=== PATIENT | female | born 1975 ===

== ENCOUNTER 2025-06-01 15:32 | Outpatient (REF) | payer MEDICAID, SELFPAY ==
--- OUTSIDE RECORDS SUMMARY | 2025-05-31 11:00 | XMS_ITS ---
Author Organization [facility] Address [address] [place] [address] Care Team Providers Care Prize Fighter Name Role Phone [facility] Primary C are Provider Unavailable LU KRISHNAN Unavailable [phone] REASON FOR VISIT Difficulty breathing Social History Sex Assigned At : Social History Observation Description Sex Assigned At Female Encounters Encounter Location Date Provider Diagnosis [facility] [address] [address] 05/31/2025 LU KRISHNAN Plan Of Treatment No Information Progress Notes * Suzie SCHMITZDOB:1975 (49 yo F)Acc No.[id number]:05/31/2025 Progress Notes Patient: Suzie Moreland Provider: Renny KRISHNAN APRN :1975 A ge:49 Y S ex:Female Date:05/31/2025 Address:[address] [place], [place] [id number] Pcp:[facility] Subjective: * Chief Complaints: * D ifficulty breathing Care Plan Details* * Electronic signature of KHRIS KRISHNAN APRN on 06/01/2025 at 06:39 PM EDT Sign off status: Pending * Provider: Renny KRISHNAN APRN Date: Generated for Alaina macedo/Loretta/Alfreditoitting on: 06:39 PM EDT
--- OUTSIDE RECORDS SUMMARY | 2025-05-31 17:40 | XMS_ITS | Encounter Summary ---
Author Organization [employer] Address [address] [facility] 7[address] [place] [address] Care Team Providers Care Diesel Fleet Mechanic Name Role Phone Margareth Avalos DO Primary Care Provider + [phone] Elmer Barros PA-C Unavailable [phone] Reason for Visit * Reason Comments Respiratory Distress Cough Nasal Congestion Encounter Details Date Type Department Care Team ([facility] st Contact Info) Description 05/31/2025 5:40 PM EDT Office Visit [facility] [place] [address] [place] [address] Cough in adult; Nasal congestion; Difficulty breathing Social History Tobacco Use Types Packs/Day Years Used Date Smoking Tobacco: Every Day Cigarettes Passive Smoke Exposure: Current Smokeless Tobacco: Never Tobacco Cessation:Ready to Q uit: Not Asked; Counseling Given: Not Answered Alcohol Use Standard Drinks/Week Comments Not Currently 0 (1 standard drink = 0.6 oz pur e alcohol) Housing Stability Answer Date Recorded What is your housing situation today? I have saray lópez 07/02/[address] you li ve. Do you have problems with any of the following? None of the above 07/02/2024 Food Insecurity Answer Date Recorded Within the past 12 months, y ou worried that your food would run out before you got money to buy more: Never True 07/02/2024 Within the past 12 months,th e food you bought just didn't last and you didn't have enough money to get more: Never True 02/2024 Transportation Answer Date Recorded In the past 12 months, has l ack of transportation kept you from medical appts, meetings, work or from getting things needed for daily living? No 07/02/2024 Intimate Partner Violence Answer Date R ecorded Within the last year, have y ou been afraid of your partner or ex-partner? 2 07/02/2024 Within the last year, have y ou been humiliated or emotionally abused in other ways by your partner or ex-partner? 2 Within the last year, have y ou been kicked, hit, slapped, or otherwise physically hurt by your partner or ex-partner? 2 07/02/2024 Within the last year, have y ou been raped or forced to have any kind of sexual activity by your partner or ex-partner? 2 07/02/2024 Utilities Answer Date Recorded In the past 12 months, has t he [employer], gas, oil or water company threatened to shut off services in your home? 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 file Not on file Not on file documented as of this encounter Last Filed Vital Signs Vital Sign Reading Time Taken Comments Blood Pressure 114/63 05/31/2025 5:41 PM EDT Pulse 68 05/31/2025 5:41 PM EDT Temperature 36.5 C (97.7 F) 05/31/2025 5:41 PM EDT Respiratory Rate 28 05/31/2025 5:41 PM EDT Oxygen Saturation 100% 05/31/2025 5:41 PM EDT Inhaled Oxygen Concentration - - Weight 63.2 kg (139 lb 4 oz) 05/31/2025 5:41 PM EDT Height 159 cm (5' 2.6 ) 05/31/2025 5:41 PM EDT Body Mass Index 24.98 05/31/2025 5:41 PM EDT documented in this encounter Plan of Treatment Not on file documented as of this encounter Procedures Procedure Name Priority Date/Time Associated Diagnosis Comments XR CHEST 2 VIEWS Routine 06/01/2025 3:58 PM EDT Difficulty breathing POCT INFLUENZA B (ID NOW RAPID MOLECULAR) Routine 05/31/2025 6:09 PM EDT Cough in adult Nasal congestion Difficulty breathing POCT INFLUENZA A (ID NOW RAPID MOLECULAR) Routine 05/31/2025 6:08 PM EDT Cough in adult Nasal congestion Difficulty breathing POCT COVID-19 AG CHAND ID NOW Routine 05/31/2025 6:08 PM EDT Cough in adult Nasal congestion Difficulty breathing documented in this encounter Results * XR Chest 2 Views (06/01/2025 3:58 PM EDT) Anatomical Region Laterality Modality Chest Radiographic Jolie ging 06/01/2025 3:58 PM EDT Narrative 06/01/2025 4:09 [place] [address] XRay Report Signed Patient: Suzie Brooks MR#: [id number] : 1975 Acct:[id number] Age/Sex: 49 / F ADM Date: 06/01/25 Loc: HO.HHCX Attending Dr: Ade Rose Ordering Physician: Ade Rose Date of Service: 06/01/25 Procedure(s): XR chest 2V Accession Number(s): [id number] cc: Ade Rose Reason for Exam: dyspnea EXAMINATION: XR CHEST CLINICAL INFORMATION: dyspnea COMPARISON: None available. TECHNIQUE: 2 views of the chest were obtained. FINDINGS: Right-sided IJ port terminates at the superior cavoatrial junction. No significant abnormality is noted involving the heart, lungs, mediastinum, bony thorax or soft tissues. XR/XR chest 2V IMPRESSION: No acute disease Electronically signed by: Vince Burciaga MD 06/01/2025 04:06 PM EDT RP Dictated By: Vince Burciaga MD Signed By: <Electronically signed by Vince Burciaga MD in OV> 06/01/25 1606 DD/ 1558 TD/TT: 06/01/25 1604 Shuttler Car: Procedure Note Donotuseinterpreter, Image - 06/01/[address] [address] XRay Report Signed Patient: Ricco Brooks#: [id number] : 1975Acct:[id number] Age/Sex: 49 / FADM Date: 06/01/25 Loc: HO.HHCX Attending Dr: Ade Rose Ordering Physician: Ade Rose Date of Service: 06/01/25 Procedure(s): XR chest 2V Accession Number(s): [id number] cc: Ade Rose Reason for Exam: dyspnea EXAMINATION: XR CHEST CLINICAL INFORMATION: dyspnea COMPARISON: None available. TECHNIQUE: 2 views of the chest were obtained. FINDINGS: Right-sided IJ port terminates at the superior cavoatrial junction. No significant abnormality is noted involving the heart, lungs, mediastinum, bony thorax or soft tissues. XR/XR chest 2V IMPRESSION: No acute disease Electronically signed by: Vince Burciaga MD 06/01/2025 04:06 PM EDT RP Dictated By: Vince Burciaga MD Signed By: <Electronically signed by Vince Burciaga MD in OV> 06/01/25 1606 DD/ 1558 TD/TT: 06/01/25 1604 Shuttler Car: Ade Rose BRINE SUPERVISOR IMG XR PROCEDURES Final Result * POCT Rapid Influenza B CHAND ID NOW (05/31/2025 6:09 PM EDT) Influenza B Negative Negative, Indeterminate [facility] QC Media Lot # [id number] [facility] Lot# Expiration Date [facility] Swab 05/31/2025 6:09 PM EDT [facility] BRINE SUPERVISOR POINT OF CARE TEST ENTER/EDIT O RDERABLES Final Result Performing Organization Address [facility]/ZIP Co de Phone Number [facility] [address] [place] [address] [phone] * POCT Rapid Covid-19 CHAND ID NOW (05/31/2025 6:08 PM EDT) Coronavirus Antigen PCR Negative Negative, Indeterminate, None Detected, Invalid, Specimen unsatisfactory for evaluation, Weakly Positive, 2+ QC Media Lot # [id number] Lot# Expiration Date Swab 05/31/2025 6:08 PM EDT [facility] BRINE SUPERVISOR POINT OF CARE TEST ENTER/EDIT O RDERABLES Final Result * POCT Rapid Influenza A CHAND ID NOW (05/31/2025 6:08 PM EDT) Influenza A Negative Negative, Indeterminate [facility] QC Media Lot # [id number] [facility] Lot# Expiration Date [facility] Swab 05/31/2025 6:08 PM EDT [facility] BRINE SUPERVISOR POINT OF CARE TEST ENTER/EDIT O RDERABLES Final Result Performing Organization Address [facility]/ZIP Co de Phone Number [facility] [address] [place] [address] [phone] documented in this encounter Visit Diagnoses Diagnosis Cough in adult Nasal congestion Other diseases of nasal cavity and sinuses Difficulty breathing Other dyspnea and respiratory abnormality documented in this encounter Care Teams Diesel Fleet Mechanic Relationship Specialty Start Date End Date Margareth Avalos DO [address] [place] [phone] PCP - General Family Medicine 12/03/24 Elmer Barros PA-C [address] [place] [address] Family Medicine 12/03/24 documented as of this encounter
--- NOTE | ~2025-06-01 | XR_ITS ---
EXAMINATION: XR CHEST CLINICAL INFORMATION: dyspnea COMPARISON: None available. TECHNIQUE: 2 views of the chest were obtained. FINDINGS: Right-sided IJ port terminates at the superior cavoatrial junction. No significant abnormality is noted involving the heart, lungs, mediastinum, bony thorax or soft tissues. XR/XR chest 2V IMPRESSION: No acute disease Electronically signed by: Vince Burciaga MD 06/01/2025 04:06 PM EDT
--- OUTSIDE RECORDS SUMMARY | 2025-06-01 18:37 | XMS_ITS | Encounter Summary ---
Author Organization [facility] Address [address] [facility] [address] [place] [address] Phone Care Team Providers Care Vessel Liner Name Role Phone Unknown, Unknown Primary Care Provider Agustin Coates MD Primary Care Provider Trent Banks MD Unavailable [phone] Sandra Riley MD Unavailable [phone] Jacqueline Mccallum RN Unavailable [email or web address] Jacqueline Aden SOFTWARE IMPLEMENTATION PROJECT MANAGER Unavailable [phone] Bianca Cedeño METALLURGICAL OR MATERIALS TECHNICIAN Unavailable [phone] Rosa Maria Swanson PA-C Unavailable [phone] Marta Fink Unavailable [email or web address] Pcp, Unknown Primary Care Provider UnavailRee Eugene RN Unavailable [phone] Stephanie Major RN Unavailable [email or web address] Niyah Kim RN Unavailable [email or web address] Johan Vilchis MD Unavailable [phone] Encounter Details Date Type Department Care Team (Late st Contact Info) Description 06/14/2021 Procedure Pass [facility] Interventional X-ray Imaging, [address] [place] [address] Social History Tobacco Use Types Packs/Day Years Used Date Smoking Tobacco: Every Day Comments Unknown Sex and Gender Information Value Date Recorded Sex Assigned at Female 06/12/2021 3:58 PM EDT Legal Sex Female 9:58 AM EDT Gender Identity Female 06/12/2021 3:58 PM EDT Sexual Orientation Straight 06/12/2021 3: 58 PM EDT documented as of this encounter Plan of Treatment Upcoming Encounters Date Type Department Care Team (Late st Contact Info) Description 05/26/2025 Procedure Pass [facility] Radiology Department [address] [place] [address] 06/23/2025 2:30 PM EDT Ancillary Procedure [facility] Radiology Department [address] [place] [address] Sandra Riley MD [address] [place] [phone] [email or web address] 06/23/2025 3:30 PM EDT Blood Draw Laboratory Services, [address], [address]nd [place] [address] Sandra Riley MD [address] [place] [phone] [email or web address] 06/23/2025 4:00 PM EDT Office Visit [facility], [address] [place] [address] Sandra Riley MD [address] [place] [phone] [email or web address] 08/11/2025 1:20 PM EST Telemedicine [facility] [address] [facility] [place] [address] Lynda Villafana MD [address] [place] [address], [place] [address] [email or web address] 09/15/2025 9:20 AM EST Office Visit [facility] [address] [place] [address] Delores Rhoades MD [address] [place] [phone] [email or web address] documented as of this encounter Visit Diagnoses Not on filedocumented in this encounter Additional Health Concerns Infection Onset Date Last Indicated Resolved Time CoV-Risk Comment:Patient reported flu like symptoms and a stuffy nose 08/23/2021 08/23/2021 09/02/2021 1: 25 AM EST CoV-Presumed Comment:Resolved in office visit / telemedicine visit due to resolution of symptoms 02/28/2022 02/28/2022 03/20/2022 1:20 P M EDT CoV-Risk Comment:Per note documentation 10/21/2023 10/21/2023 7:45 AM EST CDiff-Risk 01/21/2024 01/21/2024 01/21/2024 10:0 4 AM EDT CDiff-Risk 01/28/2024 01/28/2024 01/29/2024 10:5 6 AM EDT CoV-Risk Comment:Per note documentation 02/01/2024 02/01/2024 6:07 AM EDT CDiff-Risk 02/07/2024 02/07/2024 02/14/2024 1:22 AM EDT documented as of this encounter Care Teams Vessel Liner Relationship Specialty Start Date End Date Unknown, Unknown, MD PCP - General 05/24/21 06/25/21 Agustin Sanchez MD PCP - General Internal Medicine 06/26/21 09/01/24 Pcp, Unknown PCP - General 09/02/24 Trent Banks MD [email or web address] Radiation Oncology 10/02/21 Sandra Riley MD [address] [place] [address] [email or web address] Primary Oncologist Neurology 10/02/21 Jacqueline Mccallum, ROSELINE [address] [place] [phone] [email or web address] Primary Infusion Nurse 10/19/21 Jacqueline Drummond, [address] [address] [email or web address] Senior Technical Support Engineer Oncology 11/27/21 Bianca Cedeño, METALLURGICAL OR MATERIALS TECHNICIAN [address] [place] [phone] [email or web address] Internal Medicine 10/08/23 Rosa Maria Swanson PA-C [address] [place] [phone] [email or web address] Physician Self Pay Representative 11/04/23 Marta Fink [address] [place] [phone] Audrey @[email or web address] Field Artillery Operations Man 12/12/23 Ree Rasmussen RN [address] [place] [phone] [email or web address] Primary Infusion Nurse 11/02/24 Stephanie Zuniga, ROSELINE [address] [place] [phone] [email or web address] Associate Infusion Nurse 11/02/24 Niyah Kim, ROSELINE [address] [place] [phone] [email or web address] Associate Infusion Nurse 11/02/24 Johan Vilchis MD [address] [address] Ophthalmology 04/02/25 documented as of this encounter Additional Source Comments The information contained in this document represents components of the legal health record. It is not the complete legal health record.[facility]
--- OUTSIDE RECORDS SUMMARY | 2025-06-01 18:37 | XMS_ITS ---
Author Organization [facility] Address [address] [place] [id number] Phone Care Team Providers Care Hot [place] Worker Name Role Phone Trent Banks MD Unavailable [phone] Sandra Riley MD Unavailable [phone] Jacqueline Mccallmu RN Unavailable [email or web address] Jacqueline Drummond METAL FABRICATING INSPECTOR Unavailable [phone] Bianca Cedeño COLD FOOD PACKER Unavailable [phone] Rosa Maria Swanson PA-C Unavailable [phone] Marta Fink Unavailable [email or web address] Pcp, Unknown Primary Care Provider UnavailRee Eugene RN Unavailable [phone] Stephanie Major RN Unavailable [email or web address] Niyah Kim RN Unavailable [email or web address] Johan Vilchis MD Unavailable [phone] Active Problems Patient Care Coordination No te Formatting of this note migh t be different from the original. [facility] [phone] [facility] Problem Noted Date Diagnosed Date History of Lelo-en-Y gastric bypass 01/06/2025 Labial irritation 02/02/2024 Assessment & Plan (02/03/2024 2:19 PM EDT): Pt with several days of labial irritation causing distress. On exam right sided external labial lesion/ulceration, appears to be healing, the rest of labia mildly inflammed. No erythema or discharge. Unclear cause. Using topical wipes unlikely to cause irritation. Has been using dibucaine for discomfort. Possible flare in setting of count recovery. Improved 02/03, pt stopped using cleansing wipes in that area. - monitor Sinus tachycardia 01/31/2024 Assessment & Plan (02/03/2024 2:18 PM EDT): RESOLVED Baseline HR ~70s-90s. Persistent tachycardia (HR 110s-130s) since 01/20, confirmed sinus rhythm on EKG. Improving around time of count recovery. Most recent Qtc 449. Otherwise remained HDS. Asymptomatic. Pre-transplant TTE with EF 65%, normal RV and LV function. Suspect multifactorial due to infection, pain with #pancolitis, dehydration. -- Monitor routine vitals, low threshold for repeat EKG/tele -- IVF PRN (1L LR on 01/31) Hyperchloremic metabolic acidosis 01/30/2024 Assessment & Plan (02/03/2024 2:15 PM EDT): RESOLVED Elevated chloride and low bicarb without anion gap. No other significant electrolyte abnormalities (though is requiring ~daily repletion for K and Phos). Feels well. Having frequent diarrhea with #pancolitis. Urine anion gap 10.2. Suspect related to GI losses, possible component of RTA. -- Anti-diarrheals as in #pancolitis -- IVF PRN (1L LR on 01/31) -- Monitor daily BMP Mucositis 01/30/2024 Assessment & Plan (02/03/2024 2:19 PM EDT): Mouth and throat pain starting 01/29 with ulcerations to bilateral sides of tongue starting 01/30. Tolerating POs. Likely grade 2 mucositis from conditioning chemotherapy. Improving with count recovery -- Mouth care per TP -- MBL PRN Mild protein-calorie malnutrition 01/25/2024 Assessment & Plan (02/03/2024 2:09 PM EDT): Hx Lelo en Y gastric bypass. Poor PO intake due to dysgeusia from chemotherapy. Also with dry mouth, biotene d/c'd with count recovery. Ketones present in UA and INR elevated. -- Encourage PO intake -- Appreciate RD recs -- S/p Vitamin K 5mg daily x3 days (01/27-01/29), increased to 10mg daily x3 days (01/30-02/01) -->INR 1.3 02/01 Chemotherapy induced nausea and vomiting Assessment & Plan (02/03/2024 2:08 PM EDT): Struggled with nausea despite TP anti-emetics. Added Ativan/Compazine PRN with good effect. Likely from conditioning chemotherapy. Most recent QTc 414 on 01/22. Improved with count recovery. -- Standing Zofran changed to PRN 02/01 -- Ativan and Compazine PRN -- Monitor Qtc with medication adjustments Pancytopenia 01/13/2024 Assessment & Plan (02/03/2024 2:07 PM EDT): Leukocytosis, anemia, and thrombocytopenia on admission related to disease and treatment (stem cell mobilization). Pancytopenic with neutropenia due to conditioning chemotherapy. ANC <500 from 01/20 - 02/01. -- Transfuse for Hct<21, Plt<10k -- Transfuse 1 unit PRBC 01/30 -- d/c'd Zarxio 480 mcg daily on day 11 due to count recovery -- Claritin daily for bone pain. D/c' d 02/02 Stem cells transplant status 01/13/2024 Bone marrow transplant candidate 01/13/2024 Autologous donor of stem cells 01/01/2024 Nasal congestion 10/22/2023 Assessment & Plan (10/24/2023 11:11 AM EST): Endorsed nasal congestion on admission. No recent fevers, cough, sick contacts. ERVP negative on admission including COVID. Symptoms improved with zyrtec. 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 Received induction with R-MPV followed by consolidation with Etoposide/Cytarabine and achieved CR. Disease recurred in the right basal ganglia/valencia radiata 05/2021, treated on Protocol 21-109 with Paxalisib then low-dose RT to right basal ganglia, and later Rituximab + Lenalidomide 10/2021. MRI brain 07/29/2024 showed disease progression. S/p 4 cycles of HD-MTX with post Tx MRI 10/2023 showing near resolution of Lymphoma. Admitted for Thiotepa-based autologous stem cell transplant on TP 898. Toxo negative. Received Kepivance as an outpatient with additional doses on Days 0, +1 and +2. Conditioning regimen consisted of: Thiotepa 250mg/m2 daily on Days -9 to -7, Busulfan 0.67mg/kg q6h on Days -6 to - 3, and Cytoxan 60mg/kg daily with [place] 15mg/kg IVB four times daily on Days -3 to -2. Keppra 500mg twice daily from Day -6 to Day -1 for seizure prophylaxis while on Busulfan. On Day 0 = 01/23/2024, a total cell dose of 3.24 x 10*6 CD34+cells/kg over two bags were infused without issue. Counts recovered 02/01. Transplant Onc: Dr. Lore Gaona; Neuro Onc: Dr. Riley -- Pre-transplant vitamin D level was 15. Replete with Ergocalciferol 50,000 units weekly for 8 weeks. On discharge add Cholecalciferol 2,000 units daily. Plan to check level after 8 weeks (~03/14) -- requesting f/u within 5 days given low platelets Assessment & Plan (10/24/2023 11:09 AM EST): Originally diagnosed in 2019 with progressive visual impairment. 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 Received induction with R-MPV followed by consolidation with etoposide/cytarabine and achieved CR. Disease recurred in the right basal ganglia/valencia radiata 05/2021, treated on Protocol 21 with paxalisib then low-dose RT to right basal ganglia, and later Rituximab + Lenalidomide 10/2021 and remained off therapy since 04/2022 until repeat MRI brain 07/29/24 confirmed disease progression. S/p 3 doses of HD-MTX. Now admitted for C2D15 (dose #4) of HD-MTX. Patient received Methotrexate 3500mg/m2 on day 1 after alkalinization of the urine to pH > 7.5. Leucovorin rescue started 24 hours after MTX and will continue q6hrs until MTX cleared. Vigorous hydration with IV bicarb, maintaining UOP >150-200cc/hr. Primary Oncologist: Dr. Riley -- MTX level to be checked at 24 hours, if greater > 10 discuss with pharmacy; MTX level to be checked daily in AM, discharge if <0.1 -- MTX level 10/23 = 1.02, =.16 -- Lasix PRN with goal I/O even -- Check urine pH with each void, goal >7.5 -- If diabetic monitor blood sugars given bicarb IVF in D5 and consider asking pharmacy to change fluids to sterile water with bicarb to limit additional dextrose intake -- No IV contrast, Bactrim, NSAIDS, MV, folic acid, aspirin, PPI, warfarin, aminoglycosides, Peptobismol, clotrimazole troches given potential interaction with MTX. -- Per Optho, decrease prednisolone to qod OU for 2-3 weeks, then q week for 2-3 weeks, then stop. Assessment & Plan (10/10/2023 4:29 PM EST): ACTIVE Originally diagnosed in 2019 with progressive visual impairment. 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 Received induction with R-MPV followed by consolidation with etoposide/cytarabine and achieved CR. Disease recurred in the right basal ganglia/valencia radiata 05/2021, treated on Protocol with paxalisib then low-dose RT to right basal ganglia, and later Rituximab + Lenalidomide 10/2021 and remained off therapy since 04/2022 until repeat MRI brain 07/29/24 confirmed disease progression. S/p 2 doses of HD-MTX. Now admitted for C2D1 (dose #3) of HD-MTX. Patient to receive Methotrexate 3500mg/m2 on day 1 after alkalinization of the urine to pH > 7.5. Leucovorin rescue to start 24 hours after MTX then continue q6hrs until MTX cleared. Vigorous hydration with IV bicarb, maintaining UOP >150-200cc/hr. Primary Oncologist: Dr. Riley -- MTX level to be checked at 24 hours, if greater > 10 discuss with pharmacy; MTX level to be checked daily in AM, discharge if <0.1 -- Lasix PRN with goal I/O even -- Check urine pH with each void, goal >7.5 -- If diabetic monitor blood sugars given bicarb IVF in D5 and consider asking pharmacy to change fluids to sterile water with bicarb to limit additional dextrose intake -- No IV contrast, Bactrim, NSAIDS, MV, folic acid, aspirin, PPI, warfarin, aminoglycosides, Peptobismol, clotrimazole troches given potential interaction with MTX Chronic health problem 10/08/2023 Assessment & Plan (10/09/2023 8:48 AM EST): DVT/Pulmonary Emboli History of DVT (reportedly in RLE per patient) in 2013, and 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 Home Xarelto 20mg daily continued on admission. Mood Disorder Home regimen includes Wellbutrin 150mg BID daily. Low Vit D Continue home ergocalciferol weekly. Nicotine Use Current smoker, estimates 0.5 pack per day for last 35 years. Previously declined nicotine patch on prior admissions. TIRE SERVICER lymphoma 10/08/2023 Primary central nervous system (TIRE SERVICER) lymphoma Chronic health problem 09/02/2023 Assessment & Plan (02/02/2024 11:51 AM EDT): #C Diff colonization Found to be C. diff colonizer on VRE swab (new ID research protocol). ID recommends ppx while on antibiotics. -- PO Vanc 125mg daily (started w/ Day -1 Levaquin). Plan 7 day tail post- antibiotics (or until hospital discharge, whichever comes first) -- Contact Plus precautions per Infection Control guidelines #Difficulty Sleeping Continue home Seroquel 25mg nightly PRN. Added Trazodone 25-50mg nightly PRN for continued poor sleep. #DVT/PE History of DVT (reportedly in RLE per patient), unclear time frame. Per chart review, documented DVT in 2013 and neck vein thrombosis in the setting of PAC placement in November 2019. PE diagnosed in 2020. -- Held home Xarelto since 01/23 for PLT<50k #ARCHER Mild intermittent headaches at home responsive to Tylenol. -- Oxycodone available PRN (currently using for abdominal pain with #pancolitis) #Mood Disorder Continue home Wellbutrin 150mg BID. #Nicotine Use Current smoker, estimates 0.5 pack per day for last 35 years. Declines Nicotine replacement therapy in the hospital. Assessment & Plan (12/02/2023 10:54 AM EDT): #ARCHER Mild intermittent headaches at home responsive to APAP. -- Avoid tylenol use while admitted given HD-MTX #Mood Disorder Continue home Wellbutrin 150 mg BID #DVT/PE History of DVT (reportedly in RLE per patient), unclear time frame. Per chart review, documented DVT in 2013, and neck vein thrombosis in the setting of PAC placement in November 2019. PE diagnosed in 2020. -- Continue home Xarelto 20 mg daily #Nicotine Use Current smoker, estimates 0.5 pack per day for last 35 years. #Difficulty Sleeping Continue Seroquel 25mg nightly PRN Assessment & Plan (11/06/2023 9:33 AM EDT): #ARCHER Mild intermittent headaches at home responsive to APAP. -- APAP PRN #Mood Disorder Continue home Wellbutrin #DVT/PE History of DVT (reportedly in RLE per patient), unclear time frame. Per chart review, documented DVT in 2013, and neck vein thrombosis in the setting of PAC placement in November 2019. PE diagnosed in 2020. --Continue home Xarelto #Nicotine Use Current smoker, estimates 0.5 pack per day for last 35 years. Declines nicotine replacement therapy in the hospital. #Difficulty Sleeping Started on admission per outpatient team. -- Start Seroquel 25mg qHS -- [id number] 11/03 Assessment & Plan (10/24/2023 11:07 AM EST): #Mood disorder Continue home wellbutrin. #DVT/PE History of DVT (reportedly in RLE per patient), unclear time frame. Per chart review, documented DVT in 2013, and neck vein thrombosis in the setting of PAC placement in November 2019. PE diagnosed in 2020. -- Continue home Xarelto #Nicotine use Current smoker, estimates 0.5 pack per day for last 35 years. Previously declined nicotine patch on prior admissions. #Low Vit D Continue home ergocalciferol weekly. Assessment & Plan (09/05/2023 11:05 AM EST): #Mood disorder Continue wellbutrin #DVT/PE History of DVT (reportedly in RLE per patient), unclear time frame. Per chart review, documented DVT in 2013, and neck vein thrombosis in the setting of PAC placement in November 2019. PE diagnosed in 2020. -- Continue home Xarelto ensure PLT>50 #Nicotine use Patient declines nicotine patch on admission. #Rhinorrhea Reports of flu like symptoms 15 days prior to admission, reports feels more like allergies. Still with mild rhinorrhea and headaches, improved with Claritin. -- Continue Claritin Prolonged QT interval 05/18/2022 Assessment & Plan (05/18/2022 4:08 PM EDT): ACTIVE Referred to Cardiology in April 2022 for prolonged QTc (524) and syncope three weeks prior with prodrome, no recurrence. Repeat QTc at cardiology consult was 479. Cardiology felt her prolonged QTc was in the setting of hypokalemia. With regards to her syncope, given her baseline low blood pressure and her worsening of diarrhea, this likely is vasovagal with an element of hypovolemia, although she has not had any recurrence. If this was due to arrhythmia in the setting of hypokalemia, the treatment would be addressing the electrolyte imbalance first. On admission per neuro-onc note QTc 501 in clinic in the setting of hypokalemia. UTI (urinary tract infection) 05/18/2022 Assessment & Plan (05/18/2022 4:41 PM EDT): ACTIVE Reported dysuria, with UCX showing >100k CFU that later speciated to Klebsiella. Received CTX 1g x 1 on 05/16 then was started on Cefpodoxime. Switched to Levaquin 250 mg daily x 3 days 05/18 based on sensitivities. Chose Levaquin rather than Bactrim to not complicate evaluation of #hypokalemia. -- Levaquin 250 mg daily x 3 days -- Pyridium TID Pancolitis 05/18/2022 Assessment & Plan (02/03/2024 2:17 PM EDT): Iso neutropenia. Diarrhea starting 01/20. Notably #C.Diff colonized, on PO Vancomycin ppx given Levaquin ppx with TP. No external hemorrhoids or anal fissure on exam though is having some won-rectal irritation likely associated with wiping. Initially suspected chemo-induced diarrhea, and treated with Imodium/Lomotil. Developed worsening abdominal pain prompting CTAP on 01/27 which showed pancolitis. Given elevated temp (100.2F) and c/f neutropenic colitis, started Cefepime/Flagyl empirically. Most recent C.Diff Ag-/toxin- (01/27). Likely from chemotherapy. -- Continue Cipro/Flagy for 2 weeks after count recovery (end 02/15). -- Pain control: Oxycodone 5mg q6hrs PRN (using minimally) -- Supportive care: Imodium, Bentyl, Simethicone PRN -- Dibucaine, Tucks, Zinc Oxide PRN for won-rectal irritation Antibiotics: Cefepime 01/27- 02/02, changed to Cipro Cipro 02/02 -02/15 (2 weeks s/p ANC >500) Flagyl 01/27- present Micro: Bcx (01/27) NG Assessment & Plan (05/19/2022 2:58 PM EDT): ACTIVE Patient reports chronic diarrhea secondary to Revlimid. No abdominal pain or cramping. Negative C diff 05/19. DVT (deep venous thrombosis) 05/18/2022 Assessment & Plan (05/18/2022 5:05 PM EDT): ACTIVE History of DVT (reportedly in RLE per patient), unclear time frame. Per chart review, documented DVT in 2013, and neck vein thrombosis in the setting of PAC placement in November 2019. Recent bilateral LE Leida in October 2021 negative for clot. She has remained on her home Rivaroxaban 20 mg daily which has been held since 05/18 in the setting of anemia. -- Hold Rivaroxaban; discuss on whether to resume Mood disorder 05/18/2022 Assessment & Plan (05/18/2022 6:49 PM EDT): SECONDARY Continue Wellbutrin. Anemia 05/17/2022 Assessment & Plan (11/04/2023 6:16 PM EDT): Mild anemia on admission consistent with previous levels. Likely r/t disease and treatment. -- Transfuse for Hct<21, Plt<10 Assessment & Plan (09/20/2023 3:58 PM EST): #DVT/Pulmonary Emboli History of DVT (reportedly in RLE per patient), unclear time frame. Per chart review, documented DVT in 2013, and neck vein thrombosis in the setting of PAC placement in November 2019. Additionally, patient with history of pulmonary emboli diagnosed in 2020. Home Xarelto 20mg daily continued on admission. #Mood Disorder Home regimen includes Wellbutrin 150mg BID daily. #Low Vit D Continue home ergo. #Nicotine Use Patient declined nicotine patch on admission. Assessment & Plan (05/19/2022 2:58 PM EDT): ACTIVE Noted to have HCT of 20 in the ED where she was being observed for #hypokalemia. WBC 2.33, plt 154, MCV 94.3. Of note, she is on xarelto 20mg qd due to VTE. On review HCT downtrending from recent baseline 23-24 in April, 24-27 in March, 30s in February. She denies any history of bleeding, including melena, hematochezia, hematemesis, or hematuria. No lighthheadedness or fatigue. Work up notable for normal B12, reticulocyte count evalated at 2.8% suggesting appropriate response to anemia. Folate low (2.7), started on folic acid 1 mg daily x 5 days per nutrition. NEREYDA negative, LDH, and bilirbuin normal, haptoglobin high thus low suspicion for hemolysis. Iron (29), TIBC (90) low, and per admission MAR pt not taking ferrous sulfate. DDX includes underlying malignant marrow process or secondary malignancy, vs GIB although no clinical symptoms to suggest GIB. -- Transfuse for HCT <21, Plt <10 -- Transfused unit PRBC 05/18 for HCT 22.5 -- CBC qd -- Resume ferrous sulfate -- Folic acid 1 mg daily x 5 days -- Hold rivaroxaban for now and decide whether to resume at discharge -- Rapid heme panel drawn 05/19 with plan to follow up with Dr. Tabares as an outpatient -- BmBx likely as outpatient pending RHP Hypokalemia 05/16/2022 Assessment & Plan (05/19/2022 2:56 PM EDT): ACTIVE Labs at clinic visit notable for potassium of 2.0. Hypokalemia has been chronic issue in the setting of diarrhea from lenalidomide, with level of 2.3 at previous visit. In clinic received a total of 80 meq of potassium and sent to ED. Per Neuro Onc ISHMAEL Swanson, she reports she had been taking per postassium 20 meq daily at home, and was instructed by outpatient team to increase to 20 meq BID with repeat blood work next week. She was then sent to the ED for observation and received IV repletion with magnesium, calcium, and potassium. -- Trend BMP -- Trial of 20meq K today 05/19 and will re-check on 05/20 H/O: hysterectomy 11/29/2021 Primary TIRE SERVICER lymphoma 11/01/2021 Assessment & Plan (12/02/2023 10:56 AM EDT): Originally diagnosed in 2019 with progressive visual impairment. 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 Received induction with R-MPV followed by consolidation with etoposide/cytarabine and achieved CR. Disease recurred in the right basal ganglia/valencia radiata 05/2021, treated on Protocol 21-109 with paxalisib then low-dose RT to right basal ganglia, and later Rituximab + Lenalidomide 10/2021 and remained off therapy since 04/2022 until repeat MRI brain 07/29/24 confirmed disease progression. S/p 4 doses of HD-MTX. Brain MRI 11/03 with continued improvement. Admitted for 7th dose (C4D1) of HD-MTX. Patient to receive Methotrexate 3500 mg/m2 on day 1 after alkalinization of the urine to pH > 7.5. Leucovorin rescue to start 24 hours after MTX then continue q6hrs until MTX cleared. Vigorous hydration with IV bicarb, maintaining UOP >150-200cc/hr. Primary Onc: Dr. Lore Gaona Primary Neuro Onc: Dr. Riley -- Clarify if plan for increased leucovorin given borderline EMMA following last dose (Scr up to 1013 from baseline ~0.80) -- MTX level to be checked at 24 hours, if greater > 10 discuss with pharmacy; MTX level to be checked daily in AM, discharge if <0.1 -- Lasix PRN with goal I/O even -- Check urine pH with each void, goal >7.5 -- No IV contrast, Bactrim, NSAIDS, MV, folic acid, aspirin, PPI, warfarin, aminoglycosides, Peptobismol, clotrimazole troches given potential interaction with MTX -- Potential plan for consolidation with autoSCT Assessment & Plan (05/19/2022 12:10 PM EDT): ACTIVE Presented with worsening vision impairment in her left eye and 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 S/p R-MPV (-01/2020) for induction and consolidation with CYVE (03/24-03/27/20), with recurrence (09/19/20) s/p MR- ibrutinib x 6 cycles (-11/2020) followed by ibrutinib monotherapy (-05/17/21), with recurrence (06/12/21). She was then enrolled on DF 21-109 with paxalisib but continued progression, s/p XRT (10/05-10/19/21) 20Gy in 10 Fr, and started on rituximab + lenalidomide (started 11/01/21). Last received Rituximab 05/16/22 in clinic. Primary Neuro- Oncologist: Dr. Riley -- Lenalidomide held at time of admission due to diarrhea and decision made with Dr. Riley to hold at discharge for a period of time Pyelonephritis 03/29/2021 History of pulmonary embolus (PE) 12/05/2020 GERD (gastroesophageal reflux disease) 0 Visual disturbances 11/25/2019 Overview (06/16/2021): Added automatically from request for surgery [id number] Diffuse large B cell lymphoma 11/25/2019 Overview (06/14/2021): Added automatically from request for surgery [id number] Assessment & Plan (11/06/2023 9:32 AM EDT): Originally diagnosed in 2019 with progressive visual impairment. 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 Received induction with R-MPV followed by consolidation with etoposide/cytarabine and achieved CR.Disease recurred in the right basal ganglia/valencia radiata 05/2021, treated on Protocol 21-109 with paxalisib then low-dose RT to right basal ganglia, and later Rituximab + Lenalidomide 10/2021 and remained off therapy since 04/2022 until repeat MRI brain 07/29/24 confirmed disease progression. S/p 4 doses of HD-MTX. Brain MRI 11/03 with continued improvement. Now admitted V=C3D1 (dose #5) of HD-MTX. Receive Methotrexate 3500mg/m2 on day 1 after alkalinization of the urine to pH > 7.5. Leucovorin rescue to start 24 hours after MTX then continue q6hrs until MTX cleared. Vigorous hydration with IV bicarb, maintaining UOP >150-200cc/hr. 24 hour MTX level of 1.17. Primary Oncologist: Dr. Riley -- MTX level to be checked daily in AM, discharge if <0.1 -- Lasix PRN with goal I/O even -- Check urine pH with each void, goal >7.5 -- If diabetic monitor blood sugars given bicarb IVF in D5 and consider asking pharmacy to change fluids to sterile water with bicarb to limit additional dextrose intake -- No IV contrast, Bactrim, NSAIDS, MV, folic acid, aspirin, PPI, warfarin, aminoglycosides, Peptobismol, clotrimazole troches given potential interaction with MTX -- During previous admission, decreased prednisolone to qod OU for 2 weeks, then q week for 2 weeks, then stop- will confirm taper with patient -- Neuro-oncology planning for f/up in 2 weeks, potential plan for consolidation with autoSCT (discussing with Dr. Gaona) Current Treatment and Therapy Plans ACCESS AND FLUSH??(DFCI)* Plan Start Date:01/06/2025 Plan Provider:Rosa Maria Swanson PA-C Linked Problems Primary TIRE SERVICER lymphoma Treatment Medications No medications scheduled. IP BMT 898 AUTO BUSULFAN/Cyclophosphamide/THIOTEPA* Plan Start Date:01/10/2024 Plan Provider:Lore Gaona MD Linked Problems TIRE SERVICER lymphoma Treatment Medications busulfan (BUSULFEX) infusion 0.5 mg/mLcycloPHOSphamide (CYTOXAN) infusion 250 mL (liquid vial)palifermin (KEPIVANCE)thiotepa (THIOFLEX) infusion 500 mL Bag METHOTREXATE/TEMOZOLOMIDE/RITUXIMAB* Plan Start Date:09/02/2023 Plan Provider:Tam Turner MD, MPH Linked Problems Primary TIRE SERVICER lymphoma Treatment Medications Current Day (Days 1 through 11, Cycle 4 - Planned for 12/03/2023) Next Day (Days 15 through 21, Cycle 4 - Planned for 12/17/2023) methotrexate sodium (PF) No medications schedule d. No medications scheduled. Rituximab (IV/SQ)/Lenalidomide with full dose rituximab week 1* Plan Start Date: 11/01/2021 Plan Provider:Sandra Riley MD Linked Problems Primary TIRE SERVICER lymphoma Treatment Medications lenalidomide (REVLIMID)riTUX imab (RITUXAN) IVPB in NS 1 mg/mLriTUXimab (RITUXAN) IVPB 250 mL (250 mg - 1000 mg) (QS Base) Other Current Plans 14 MONTH POST-HSCT Vaccines (HEP B) (DFCI)* Plan Start Date:03/17/2025 Plan Provider:Rosa Maria Swanson PA-C Linked Problems Autologous donor of stem julian ls Treatment Medications No medications scheduled. 18 MONTH POST-HSCT Vaccines (COMBINED HEP A?/ HEP B) (DFCI)* Plan Start Date: 07/27/2025 Plan Provider:Rosa Maria Swanson PA-C Linked Problems Stem cells transplant status Treatment Medications No medications scheduled. 9 MONTH POST-HSCT VACCINES (DFCI)* Plan Start Date:10/28/2024 Plan Provider:Rosa Maria Swanson PA-C Linked Problems Autologous donor of stem julian ls Treatment Medications No medications scheduled. Past Treatment and Therapy Plans Access and Flush Therapy Plan Plan Name Start Date Discontinue Date Treatment Medications Discontinue Reason Plan Provider ACCESS AND FLUSH (DFCI) 01/24/2022 01/10/2023 No medications scheduled. a. Therapy Complete Rosa Maria Swanson PA-C RESEARCH PLAN Plan Name Start Date Discontinue Date Treatment Medications Discontinue Reason Plan Provider Cycles - PHASE 2: 60 MG PAXALISIB QD 06/26/2021 11/01/2021 ID-paxalisib <[id number]> () b. Progression Tam Turner MD, MPH 3 of 24 cycles started TREATMENT PLAN Plan Name Start Date Discontinue Date Treatment Medications Discontinue Reason Plan Provider Cycles Rituximab (IV/SC) - LENALIDOMIDE WITH SPLIT DOSE RITUXIMAB DAY 1 11/01/2021 11/01/2021 lenalidomide (REVLIMID)Iván Ximab m. Entered in error Sandra Riley MD Treatment not started Rituximab (IV/SQ)/Lenalid omide with full dose rituximab week 1 11/01/2021 11/01/2021 lenalidomide (REVLIMID)Iván Ximab m. Entered in error Sandra Riley MD Treatment not started Radiation Treatments * Course C1 10/05/2021 - 10/19/2021 Treatment Period Energy Fraction Dose Fractions Total Dose Plans Planned A1_BRAIN_IFRT 10/05/2021 - 10/19/2021 200 cGy 2,000 cGy Reference Points Delivered A_BRAIN_IFRT 10/05/2021 - 10/19/2021 2,000 cGy Lifetime Dose Tracking * Chemical Lifetime Dose Automatic Entry Manual Entr y busulfan 8.113 mg/kg (708 mg) 8.113 mg/kg (708 mg) 0 mg/kg (0 mg) Resolved Problems Problem Noted Date Diagnosed Date Resolved Date Syncope 01/21/2024 01/29/2024 Assessment & Plan (02/01/2024 2:06 PM EDT): COMPLAINT MANAGER called for unwitnessed fall on 01/20. Patient reports getting up to use the bathroom when she awoke on the floor. Per RN, she was found sitting on the floor with head slumped, unresponsive for ~30 seconds. No post-ictal confusion or incontinence. Per patient no prior episodes of similar symptoms. Patient denied head strike. Denied lightheadedness or dizziness. No neuro deficits, though with bruises noted on forehead. Afebrile, HDS though with softer BPs (~90/50s). Blood sugar 105. Trop flat. Lactate 2.8 -> 1.0 -> 0.8 with IVF. Blood cultures negative. UA non-infectious. EKG with occasional PVCs otherwise NSR. HCT showed no acute intracranial findings. Of note, at time of COMPLAINT MANAGER patient net negative ~1.8L. Highest suspicion for hypovolemia as etiology. Received IVF per TP with additional boluses PRN. Monitoring orthostatic vital signs, strict I/O, and fall precautions in place. No recurrent symptoms. Pain, dental 01/14/2024 01/19/2024 Assessment & Plan (02/01/2024 2:05 PM EDT): R lower gum discomfort on admission, unsure if any trauma. Some soreness with chewing. No erythema, ulcer, or jaw TTP. Cleared by dental 12/18. Suspect related to recent kepivance. Discomfort resolved 01/14. -- Continue mouth care Pre-transplant evaluation fo r stem cell transplant 01/13/2024 01/14/2024 Assessment & Plan (01/13/2024 11:39 AM EDT): Autologous Stem Cell Transplant Nursing Admission Note Patient Name: Suzie Cooper : 1975 Diagnosis: Primary TIRE SERVICER Lymphoma TP: 898 Allergies: Food Allergy Formula Medium 12/04/2019 Contraindication Unknown Cod fish Per pt interview 12/04/2019 Metoclopramide (Only with IV Reglan) Medium 12/13/2019 Contraindication Anxiety Treating MD: Lore Gaona MD phone #: Referring MD: Dr. Sandra Riley Referring MD phone #: Molded Goods Operator: Jacqueline Drummond, [facility] SCT ONN: Danita Salgado RN, BSN SCT ONN phone #/pager #: / [phone] WORK-UP MRI Date: 01/01/2024 T-Spot Date: 12/02/2023 Result: Negative Echo Date: 12/02/2023 EF: 65% Pulmonary Function Tests Date: 12/02/2023 FVC:101 FEV1:102 DLCO(hgb):79 EKG Date: 12/02/2023 QTc: 437 Chest X-Ray Date: 12/02/2023 Dental Clearance: 12/19/2023 COVID-19 Pre-admission Test: 01/10/2024 Result: Negative Latest Reference Range & Units 01/10/24 08:01 SARS-COV 2 (COVID-19) PCR SARS-CoV-2 not detected SARS-CoV-2 not detected COVID-19 Pre-admission telephone screen: 01/06/2024 (Reported no new or worsening symptoms) Infectious Disease Markers Date: 12/02/2023 Please see deviation from 01/07/2024 for pre-transplant workup IDMs being outside of the 30-day window to pheresis. Latest Reference Range & Units 12/02/23 10:10 Toxoplasma Ab, IgG Negative Negative Varicella Ab, IgG Positive 1.5 EBV - VCA Ab, IgG Negative Positive EBV - VCA Ab, IgM Negative Negative EBV Ab(s) SEE NOTE EBV Nuclear Ab Negative Positive PANEL A SPOT COUNT 0 Panel B Spot Count Corrected For Neg Control 0 Negative Control Passed Interferon-gamma (pos control) Passed Performing Lab Performed at [facility], [address] [place] [address] RPR, Donor (qual) Nonreactive Nonreactive T SPOT Negative Negative T SPOT TB TEST Rpt ABO/Rh (Donor) O POSITIVE Antibody Screen, Donor Negative Negative HBV Surface Ag, Donor Negative Negative HBV Core Ab(s), Donor Negative Negative HCV Ab(s), Donor Negative Negative HIV Ab(s), Donor Negative Negative HTLV 1+2 Ab(s), Donor Negative Negative CMV Ab(s), Donor Nonreactive REACTIVE ! HIV1+HEPC RNA+HEPB DNA, Donor Negative Negative West Nile Virus RNA, Donor Negative Negative Chagas (T. cruzi) Ab(s), Donor Negative Negative !: Data is abnormal Rpt: View report in Results Review for more information Central Venous Access Date of placement: 01/06/2024 Type: Tunneled trifusion catheter Mobilization Start Date: 01/04/2024 Agents: Filgrastim- sndz (Zarxio) and Plerixafor on 01/06/2024 Stem Cell Collection Dates: 01/08/2024 Total CD34/kg collected: 3.23 x 10^6 CD34/kg Conditioning and SCT Chemotherapy Agents: Thiotepa, Carmustine Day 0: 01/23/2024 Height: 158cm Weight: 90.2kg BSA: 1.91m2 Discharge Plan Pharmacy: [facility] [address] Room [facility] Dispo: Suzie will be discharged to her home in [place]. Suzie has chosen her significant other, Tamela, to be her primary caregiver upon discharge. Note to Floor: Suzie Cooper is a 48-year-old with primary TIRE SERVICER lymphoma. She received Rituximab and Lenalidomide in 2021 which was stopped due to side effects. Suzie has since received six doses of methotrexate starting 09/03/2023 to 11/19/2023 and has achieved a complete remission. This remission will be consolidated with TP 898.
--- OUTSIDE RECORDS SUMMARY | 2025-06-01 18:37 | XMS_ITS | Clinical Summary ---
Author Organization [facility] Address [address] [place] [address] Care Team Providers Care Ship Propeller Finisher Name Role Phone Agustin Sanchez MD Primary Care Provider [phone] Allergies No known active allergies Medications Medication Sig Dispensed Refills Start Date End Date Status morphine (MSIR) 15 MG tablet Take 1 tablet (15 mg total) by mouth every 6 (six) hours as needed. 12 tablet 0 01/01/2019 Active ibuprofen (ADVIL,MOTRIN) 600 MG tablet Take 1 tablet (600 mg total) by mouth every 6 (six) hours as needed for pain. 30 tablet 0 01/01/2019 Active Family History Medical History Relation Name Comments Breast cancer Mother Relation Name Status Comments Mother Social History Tobacco Use Types Packs/Day Years Used Date Smoking Tobacco: Never Assessed Sex and Gender Information Value Date Recorded Sex Assigned at Female 01/01/2019 1:19 AM EDT Gender Identity Not on file Sexual Orientation Not on file Job Start Date Occupation Industry Not on file Not on file Not on file Last Filed Vital Signs Vital Sign Reading Time Taken Comments Blood Pressure 102/69 01/01/2019 6:16 AM EDT Pulse 66 01/01/2019 6:16 AM EDT Temperature 36.5 C (97.7 F) 01/01/2019 6:16 AM EDT Respiratory Rate 17 01/01/2019 6:16 AM EDT Oxygen Saturation 96% 01/01/2019 6:16 AM EDT Inhaled Oxygen Concentration - - Weight 79.2 kg (174 lb 8 oz) 01/01/2019 12:57 AM EDT Height - - Body Mass Index - - Plan of Treatment Health Maintenance Due Date Last Done Comments Hepatitis B Vaccines (1 of 3 - 3-dose series) 1975 Hepatitis C Screening 1975 COVID-19 Vaccine (#1) 1975 Depression Screening 1987 Preventative Health Evaluation 1993 DTap / Tdap / Td (1 - Tdap) 1994 Cervical Cancer Screening (P ap Smear) 1996 Colon Cancer Screening (Colonoscopy) 2020 Breast Cancer Screening (Mammogram) 09/28/2023 09/28/2022 Influenza Vaccine (#1) 2025 05/20/2022 Pneumococcal Vaccine Aged Out No long er eligible based on patient's age to complete this topic RSV Ped < 20 months Aged Out No longe r eligible based on patient's age to complete this topic Care Teams Ship Propeller Finisher Relationship Specialty Start Date End Date Agustin Sanchez MD [address] [place] [id number] PCP - General Internal Medicine 08/15/22
--- OUTSIDE RECORDS SUMMARY | 2025-06-01 18:37 | XMS_ITS | Clinical Summary ---
Author Organization [facility] ity Address [address] [place] [address] Care Team Providers Care Anchor Operator Name Role Phone Agustin Sanchez MD Primary Care Provider [phone] Surgical History Surgery Date Site/Laterality Comments HYSTERECTOMY PROCEDURE:HYSTERECTOMY Family History Medical History Relation Name Comments Breast cancer Mother Relation Name Status Comments Mother Social History Tobacco Use Types Packs/Day Years Used Date Smoking Tobacco: Never Assessed Comments Unknown Sex and Gender Information Value Date Recorded Sex Assigned at Not on file Legal Sex Female 12:29 AM EST Gender Identity Not on file Sexual Orientation Not on file Obstetrics History Plan of Treatment Health Maintenance Due Date Last Done Comments Colorectal Cancer Screening: Colonoscopy 1975 DTaP,Tdap,and Td Vaccines (1 - Tdap) 1994 Hepatitis B Vaccines (1 of 3 - 19+ 3-dose series) 1994 Cervical Cancer Screening: P ap Smear 1996 Breast Cancer Screening 09/28/2023 09/28/2022 HIV Screening 09/29/2023 Hepatitis C Screening 09/29/2023 Social Influencers of Health Screening 09/29/2023 Depression Screening 08/26/2024 COVID-19 Vaccine (1 - 2023-2 5 season) 2025 Influenza Vaccine (#1) 2025 RSV Immunization Adult Patie nts (1 - 1-dose 75+ series) 2050 HIB Vaccines Aged Out No longer eligi ble based on patient's age to complete this topic HPV Vaccines Aged Out No longer eligi ble based on patient's age to complete this topic Hepatitis A Vaccines Aged Out No long er eligible based on patient's age to complete this topic IPV Vaccines Aged Out No longer eligi ble based on patient's age to complete this topic MMR Vaccines Aged Out No longer eligi ble based on patient's age to complete this topic Meningococcal ACWY Vaccine Aged Out N o longer eligible based on patient's age to complete this topic Meningococcal B Vaccine Aged Out No l onger eligible based on patient's age to complete this topic Pneumococcal Vaccine: Pediat rics (0 to 5 Years) and At-Risk Patients (6 to 49 Years) Aged Out No longer eligi ble based on patient's age to complete this topic RSV Immunization Patients Un taylor 20 months Aged Out No longer eligible b ased on patient's age to complete this topic Varicella Vaccines Aged Out No longer eligible based on patient's age to complete this topic Procedures Procedure Name Priority Date/Time Associated Diagnosis Comments MAMMOGRAM SCREENING BILATERAL 3D ERIKA WITH CAD Routine 09/28/2022 3:13 PM EST Encounter for screening mammogram for malignant neoplasm of breast Inconclusive mammogram from Last 3 Months or Most Recently Relevant to Health Maintenance Results * MAMMOGRAM SCREENING BILATERAL 3D ERIKA WITH CAD (09/28/2022 3:13 PM EST) Anatomical Region Laterality Modality Mammography 08/14/2022 2:27 PM EST Narrative 10/02/2022 10:25 AM EST This is a summary report. The complete report is available in the patient's medical record. If you cannot access the medical record, please contact the sending organization for a detailed fax or copy. INDICATION FOR EXAM: Screening mammogram. COMPARISON: 07/04/2020 Mammograms analyzed using the Second Look Computer Aided Diagnostic System (CAD). Low dose digital tomosynthesis was performed. 2D and 3D mammographic images were obtained in craniocaudad and mediolateral oblique projections. No skin thickening or focal skin retraction. There are scattered fibroglandular densities (approximately 25% - 50% glandular). There are a few scattered benign-appearing calcifications. No significant asymmetry, mass, architectural distortion or suspicious calcifications. IMPRESSION: There are scattered fibroglandular densities (approximately 25% - 50% glandular). No mammographic evidence of malignancy. ACR BI-RADS CATEGORY: 2 Benign Finding(s) Report reviewed and signed by : Dr. Hieu Rubio MD on 10/02/2022 10:25 AM. Workstation Name - [id number] Procedure Note Hieu Rubio MD - 09/30/2023 This is a summary report. The complete report is available in thepatient's medical record. If you cannot access the medical record, pleasecontact the sending organization for a detailed fax or copy. INDICATION FOR EXAM: Screening mammogram. COMPARISON: 07/04/2020 Mammograms analyzed using the Second Look Computer Aided Diagnostic System(CAD). Low dose digital tomosynthesis was performed. 2D and 3D mammographicimages were obtained in craniocaudad and mediolateral obliqueprojections. No skin thickening or focal skin retraction. There are scatteredfibroglandular densities (approximately 25% - 50% glandular). There are afew scattered benign-appearing calcifications. No significant asymmetry,mass, architectural distortion or suspicious calcifications. IMPRESSION: There are scattered fibroglandular densities (approximately 25% - 50%glandular). No mammographic evidence of malignancy. ACR BI-RADS CATEGORY: 2 Benign Finding(s) Report reviewed and signed by : Dr. Hieu Rubio MD on 10/02/2022 10:25AM. Workstation Name - [id number] us Ruth Henson CNM IMG BI PROCEDURES Michelle l Result from Last 3 Months or Most Recently Relevant to Health Maintenance Care Teams Anchor Operator Relationship Specialty Start Date End Date Agustin Sanchez MD [address] [place] [address] [phone] PCP - General 08/15/22
--- OUTSIDE RECORDS SUMMARY | 2025-06-01 18:37 | XMS_ITS | Clinical Summary ---
Author Organization [facility] Address [address] [place] [address] Phone Care Team Providers Care Etcher Photoengraving Name Role Phone Trent Banks MD Unavailable [phone] Carlos Riley MD Unavailable [phone] Jacqueline Mccallum RN Unavailable [email or web address] Jacqueline Drummond MEDICAL LOGISTICS SPECIALIST Unavailable [phone] Bianca Cedeño ENCAPSULATOR Unavailable [phone] Rosa Maria Swanson PA-C Unavailable Marta Fink Unavailable [email or web address] Pcp, Unknown Primary Care Provider UnavailRee Eugene RN Unavailable [phone] Stephanie Major RN Unavailable [email or web address] Niyah Kim RN Unavailable [email or web address] Johan Vilchis MD Unavailable [phone] Allergies Active Allergy Reactions Criticality Noted Date Comments Food Allergy Formula Unknown Medium 12/04/2019 Cod fish Per pt interview 12/04/2019 Metoclopramide Anxiety,Other (See Comments) Medium 12/13/2019 Only with IV reglan Medications ursodioL (ACTIGALL) 300 mg capsule Take 1 capsule (300 mg total) by mouth 3 (three) times a day. 30 capsule 3 4 Active cholecalciferol 25 MCG (1,000 unit) tablet Take 2 tablets (2,000 Units total) by mouth daily. 4 Active hydrOXYzine HCL (ATARAX) 10 MG tablet Take 1 tablet (10 mg total) by mouth nightly at bedtime. 30 tablet 1 4 Active acyclovir (ZOVIRAX) 400 MG tablet Take 1 tablet (400 mg total) by mouth 3 (three) times a day. 270 tablet 3 5 10/29/19 26 Active atovaquone (MEPRON) 750 mg/5 mL suspension Take 5 mL (750 mg total) by mouth every 12 (twelve) hours. 300 mL 6 5 Active senna (SENOKOT) 8.6 mg tablet Take 1 tablet by mouth daily. 30 tablet 5 Active docusate sodium (COLACE) 100 MG capsule Take 1 capsule (100 mg total) by mouth 2 (two) times a day. 30 capsule 5 Active magnesium oxide (MAG-OX) 400 mg (241.3 mg elemental) tablet Take 1 tablet (400 mg total) by mouth 2 (two) times a day. 60 tablet 3 5 Active multivitamin per tablet Take 1 tablet by mouth daily. 30 tablet 3 5 Active folic acid (FOLVITE) 1 MG tablet Take 1 tablet (1 mg total) by mouth daily. 90 tablet 5 06/14/20 25 Active potassium chloride (KLOR-CON) 10 MEQ ER tablet Take 2 tablets (20 mEq total) by mouth daily. 60 tablet 1 5 Active pantoprazole (PROTONIX) 40 mg GrPS Take 1 packet (40 mg total) by mouth daily. Mix packet in applesauce 30 packet 5 5 Active rivaroxaban (XARELTO) 20 mg Tab Take 1 tablet (20 mg total) by mouth daily. Do not take until instructed to resume by outpatient doctor 90 tablet 3 5 05/03/20 26 Active buPROPion (WELLBUTRIN SR) 150 MG SR 12 hr tablet Take 1 tablet (150 mg total) by mouth 2 (two) times a day. 60 tablet 5 Active ferrous sulfate 325 mg (65 mg [place] iron) tablet Take 1 tablet (325 mg total) by mouth daily with breakfast. 30 tablet 5 Active Active Problems Patient Care Coordination No te Formatting of this note migh t be different from the original. [facility] [address] [facility] Problem Noted Date Diagnosed Date History [...] 1.3 02/01 Chemotherapy induced nausea and vomiting 024 Assessment & Plan (02/03/2024 2:08 PM EDT): [...] DM for cough Primary central nervous system (RECREATIONAL DIRECTOR) lymphoma Assessment & Plan (02/03/2024 2:17 PM [...] Previously declined nicotine patch on prior admissions. RECREATIONAL DIRECTOR lymphoma 10/08/2023 Primary central nervous system (RECREATIONAL DIRECTOR) lymphoma Chronic health problem 09/02/2023 Assessment & [...] team. 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 Left eye vitrectomy [...] (06/12/21). She was then enrolled on DF 21- with paxalisib but continued progression, s/p XRT [...] (06/16/2021): Added automatically from request for surgery [id number] Diffuse large B cell lymphoma 11/25/2019 Overview (06/14/2021): Added automatically from request for surgery [id number] Assessment & Plan (11/06/2023 9:32 AM EDT): [...] consolidation with autoSCT (discussing with Dr. Gaona) Resolved Problems Problem Noted Date Diagnosed Date Resolved Date Syncope 01/21/2024 01/29/2024 Assessment & Plan (02/01/2024 2:06 PM EDT): SOLE CONDITIONER called for unwitnessed fall on 01/20. Patient [...] intracranial findings. Of note, at time of SOLE CONDITIONER patient net negative ~1.8L. Highest suspicion for [...] Name: Suzie Cooper : 1975 Diagnosis: Primary RECREATIONAL DIRECTOR Lymphoma TP: [id number] Allergies: Food Allergy Formula Medium 12/04/2019 Contraindication Unknown Cod fish Per pt interview 12/04/2019 Metoclopramide (Only with IV Reglan) Medium 12/13/2019 Contraindication Anxiety Treating MD: Lore Gaona MD phone #: Referring MD: Dr. Carlos Riley Referring MD phone #: Publishing Specialist: Jacqueline Drummond, [facility] SCT ONN: Danita Salgado RN, BSN [...] (pos control) Passed Performing Lab Performed at [facility], [address] [place] [address] RPR, Donor (qual) Nonreactive Nonreactive T SPOT [...] Weight: 90.2kg BSA: 1.91m2 Discharge Plan Pharmacy: [facility] [address] Room [facility] Dispo: Suzie will be discharged to her home in [place]. Suzie has chosen her significant other, Tamela, to be her primary caregiver upon discharge. Note to Floor: Suzie Cooper is a 48-year-old with primary RECREATIONAL DIRECTOR lymphoma. She received Rituximab and Lenalidomide in 2021 which was stopped due to side effects. Suzie has since received six doses of methotrexate starting 09/03/2023 to 11/19/2023 and has achieved a complete remission. This remission will be consolidated with TP 898. Encounters Date Type Department Care Team Description 05/26/2025 1:30 PM EDT [facility], [address] [place] [address] Carlos Riley MD Primary RECREATIONAL DIRECTOR lymphoma (Primary Dx) 05/26/2025 11:30 AM EDT Ancillary Procedure [facility] Radiology Department [address] [place] [id number] Carlos Riley MD Primary RECREATIONAL DIRECTOR lymphoma 04/20/2025 Telephone [facility], [address], [address] [place] [address] Margareth Buitrago RN Follow-up 03/19/2025 Orders Only [facility], [address] [place] [address] Rosa Maria Swanson PA-C 03/17/2025 4:15 PM EDT Infusion [facility] [address], [address] [place] [address] Rosa Maria Swanson PA-C Difronzo, Nicole Marie, RN Autologous donor of stem cells (Primary Dx) 03/17/2025 3:30 PM EDT Office Visit [facility], [address], [address] [place] [address] Carlos Riley MD Primary RECREATIONAL DIRECTOR lymphoma (Primary Dx) 03/17/2025 12:33 PM EDT - 03/17/2025 11:59 PM EDT Hospital Encounter [facility] [employer] Supervisor [facility] [address] [place] [address] Rosa Maria Swanson PA-C Discharge Disposition: Home or Self Care 03/17/2025 9:00 AM EDT Office Visit [facility] [address] [address] Delores Rhoades MD 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 Procedure Pass [facility] Radiology Department [address] [place] [address] 03/16/2025 Orders Only [facility], [facility] [address] [facility] [place] [address] Margareth Castillo NP 03/11/2025 Orders Only [facility] [address] [address] Torie Rose Ocular lymphoma (Primary Dx) 01/06/2025 Procedure Pass [facility] [address] [place] [address] from Last 3 Months Immunizations Immunization Administration Dates Next Due Dtap, 5 Pertussis Antigens 01/06/2025,10/28/2024 Hep A-Hep B 01/06/2025 Hepatitis B Adult 03/17/2025 Hib,PRP-T 01/06/2025,10/28/2024 IPV 01/06/2025,10/28/2024 Influenza Quadrivalent Preservative Free IM 04/27 Meningococcal MCV4O 03/17/2025,01/06/2025 Pneumococcal conjugate PCV21 01/06/2025,10/29/19 25 Zoster recombinant 01/06/2025,10/28/2024 Family History Medical History Relation Comments Heart disease Father Hypertension Father Stroke Father Diabetes Maternal Grandmother Hyperlipidemia Maternal Grandmother Cancer Mother Hyperlipidemia Mother Relation Status Comments Father Maternal Grandmother Mother Social History Tobacco Use Types Packs/Day Years Used Date Smoking Tobacco: Every Day Cigarettes 0.5 35.8 Started: 08/26/1989 Smokeless Tobacco: Never Tobacco Cessation:Ready to Q uit: Not Asked; Counseling Given: Not Answered Comments:10 cigarettes/day Alcohol Use Standard Drinks/Week Comments Not Currently 0 (1 standard drink = 0.6 oz pur e alcohol) Education Answer Date Recorded Are you interested in more education? Not on myla e 12/20/2022 Are you concerned about learning? Not on file 12/20/2022 No 12/20/2022 No 12/20/2022 Food Answer Date Recorded Within the past 6 months we worried whether our food would run out before we got money to buy more. Never True 01/13/2024 Within the past 6 months the food we bought just didn't last and we didn't have enough money to get more. Never True Residential Stability Answer Date Recor ded What is your housing situation today? I have saray sing 01/13/2024 How many times have you move d in the past 12 months? Zero (I did not move) 01/13/2024 Paying for Meds Answer Date Recorded Do you have trouble paying for medicines? No 01/13/2024 Paying Utility Bills Answer Date Record ed Do you have trouble paying your heating or elect ricity bill? No 01/13/2024 Transportation Answer Date Recorded Has the lack of transportati on kept you from medical appointments or from getting medications? No 01/13/2024 Digital Access Answer Date Recorded No 01/13/2024 Yes 01/13/2024 Do you have reliable internet access at home? Ye s 01/13/2024 Do you have a device (e.g., phone, tablet, computer) with a working camera? Yes 01/13/2024 Intimate Partner Violence Answer Date R ecorded Are you denied basic needs s uch as food, clothing, or medical care? No 09/29/2024 In the past 12 months have y ou been in a relationship with a person who hurts, threatens, or tries to control you? No 09/29/2024 Are you denied basic needs s [facility] as food, clothing, or medical care? No 09/29/2024 In the past 12 months have y ou been in a relationship with a person who hurts, threatens, or tries to control you? No 09/29/2024 Comments No Sex and Gender Information Value Date Recorded Sex Assigned at Female 06/12/2021 3:58 PM EDT Legal Sex Female 9:58 AM EDT Gender Identity Female 06/12/2021 3:58 PM EDT Sexual Orientation Straight 06/12/2021 3: 58 PM EDT Last Filed Vital Signs Vital Sign Reading Time Taken Comments Blood Pressure 104/68 05/26/2025 1:30 PM EDT Pulse 68 05/26/2025 1:30 PM EDT Temperature 36.2 C (97.1 F) 05/26/2025 1:30 PM EDT Respiratory Rate 16 03/17/2025 3:47 PM EDT Oxygen Saturation 100% 05/26/2025 1:30 PM EDT Inhaled Oxygen Concentration 28.3% 02/04/2024 5 :06 AM EDT Weight 60 kg (132 lb 4.4 oz) 05/26/2025 1:30 PM EDT Height 156.3 cm (5' 1.54 ) 05/26/2025 1:30 PM ED T Body Mass Index 24.56 05/26/2025 1:30 PM EDT Plan of Treatment Upcoming Encounters Date Type Department Care Team (Late st Contact Info) Description 05/26/2025 Procedure Pass [facility] Radiology Department [address] [place] [address] 06/23/2025 2:30 PM EDT Ancillary Procedure [facility] Radiology Department [address] [place] [address] Carlos Riley MD [address] [place] [id number] [email or web address] 06/23/2025 3:30 PM EDT Blood Draw Laboratory Services, [address] [place] [address] Carlos Riley MD [address] [place] [id number] [email or web address] 06/23/2025 4:00 PM EDT Office Visit [facility], [facility] [address] [facility], [address]th [place] [address] Carlos Riley MD [address] [place] [id number] [email or web address] 08/11/2025 1:20 PM EST Telemedicine [facility] [address] [place] [address] Lynda Villafana MD [address], [place] [address] [email or web address] 09/15/2025 9:20 AM EST Office Visit [facility] [address] [place] [address] Delores Rhoades MD [address] [place] [address] [email or web address] Health Maintenance Due Date Last Done Comments Adult Td,Tdap Booster 1975 COLONOSCOPY 2020 FIT TEST 2020 SIGMOIDOSCOPY 2020 VIRTUAL COLONOSCOPY 2020 HIB VACCINES (3 of 3 - Risk 3-dose series) 02/03/2025 01/06/2025, 10/28/2024 INFLUENZA VACCINE (#1) 2025 05/20/2022 COVID-19 VACCINE ( - season) 2025 DEPRESSION SCREENING 06/09/2025 06/09/2024 FOBT 09/02/2025 09/02/2024 SMOKING Hx and SMOKELESS TOBACCO SCREENING 09/29/2025 09/29/2024 CREATININE LEVEL 05/26/2026 05/26/2025, , 01/06/2025, Additional history exists POTASSIUM LEVEL 05/26/2026 05/26/2025, 02/24, 01/06/2025, Additional history exists MAMMOGRAM 07/20/2026 07/20/2024, 0210/2022, 09/28/2022 COLOGUARD 07/20/2027 07/20/2024 COLORECTAL CANCER SCREENING 07/20/2027 LIPID PANEL 07/07/2029 07/07/2024, 08/27, 08/23/2021, Additional history exists HEPATITIS C SCREENING Completed 06/16/2021 HIV ONE-TIME SCREENING (18-65 YEARS) Completed 06/16/2021 HEPATITIS A VACCINES Aged Out 01/06/2025 No long er eligible based on patient's age to complete this topic PNEUMOCOCCAL VACCINES (0-49 years) Completed 01/06/2025, 10/28/2024 MENINGOCOCCAL VACCINES (ACWY) Aged Out 03/17/2025, 01/06/2025 No longer eligibl e based on patient's age to complete this topic MENINGOCOCCAL VACCINES (B) Aged Out N o longer eligible based on patient's age to complete this topic Medical Devices Not on file Procedures Procedure Name Priority Date/Time Associated Diagnosis Comments COMPREHENSIVE METABOLIC PANEL Routine 05/26/2025 12:41 PM EDT Primary RECREATIONAL DIRECTOR lymphoma HC BLOOD COUNT COMPLETE AUTO&AUTO DIFRNTL WBC Routine 05/26/2025 12:41 PM EDT Primary RECREATIONAL DIRECTOR lymphoma MRI BRAIN (TUMOR) WITH AND WITHOUT CONTRAST Routine 05/26/2025 11:54 AM EDT Primary RECREATIONAL DIRECTOR lymphoma COMPREHENSIVE METABOLIC PANEL Routine 03/17/2025 3:00 PM EDT Primary RECREATIONAL DIRECTOR lymphoma HC BLOOD COUNT COMPLETE AUTO&AUTO DIFRNTL WBC Routine 03/17/2025 3:00 PM EDT Primary RECREATIONAL DIRECTOR lymphoma MRI BRAIN (TUMOR) WITH AND WITHOUT CONTRAST Routine 03/17/2025 2:19 PM EDT Primary RECREATIONAL DIRECTOR lymphoma AUTOFLUORESCENCE - OU - BOTH EYES Routine 03/17/2025 9:33 AM EDT Ocular lymphoma OCT, RETINA - OU - BOTH EYES Routine 03/17/2025 9:33 AM EDT Ocular lymphoma LIPID PANEL Routine 09/20/2021 7:44 AM EST RECREATIONAL DIRECTOR lymphoma HEPATITIS C ANTIBODY WITH REFLEX TO HCV, RNA QUANTITATIVE REAL-TIME PCR Routine 06/16/2021 12:38 PM EDT Screening for human immunodeficiency virus RECREATIONAL DIRECTOR lymphoma from Last 3 Months or Most Recently Relevant to Health Maintenance Results * (ABNORMAL) Comprehensive metabolic panel (05/26/2025 12:41 PM EDT) Only the most recent of2 resultswithin the time period is included. SODIUM 137 136 - 145 mmol/L [facility] POTASSIUM 3.9 3.4 - 5.1 mmol/L [facility] CHLORIDE 109(H) 98 - 107 mmol/L [facility] CO2 14(LL) 22 - 31 mmol/L [facility] Comment: Critical value: Results called to and read back by: CARLOS RILEY MD AT 1347 BUN 20 6 - 23 mg/dL [facility] CREATININE 0.96 0.50 - 1.20 mg/dL [facility] GLUCOSE 74 70 - 100 mg/dL [facility] ALBUMIN 4.2 3.5 - 5.2 g/dL [facility] TOTAL PROTEIN 6.7 6.4 - 8.3 g/dL [facility] CALCIUM 9.2 8.8 - 10.7 mg/dL [facility] ALKALINE PHOSPHATASE 143(H) 35 - 104 U/L [facility] TOTAL BILIRUBIN 0.3 0.2 - 1.2 mg/dL [facility] AST 19 <33 U/L [facility] ALT 18 <34 U/L [facility] GLOBULIN 2.5 2.3 - 4.2 g/dL [facility] EGFR 73 >59 mL/min/1.7 3m2 [facility] Comment:Estimated glomerular filtration rate calculated using the CKD-EPI refit equation. ANION GAP 14 7 - 17 mmol/L [facility] Blood 05/26/2025 12:4 1 PM EDT 05/26/2025 1:13 PM EDT us Carlos Riley MD LAB BLOOD ORDERABLES Final Resu lt [facility] [address] [place] [address] * (ABNORMAL) CBC and differential (05/26/2025 12:41 PM EDT) Only the most recent of2 resultswithin the time period is included. WBC 6.39 4.00 - 10.00 K/uL [facility] RBC 3.72(L) 3.90 - 6.00 M/uL [facility] HGB 11.6 11.5 - 16.4 g/dL [facility] HCT 33.6(L) 36.0 - 48.0 % [facility] PLT 224 150 - 450 K/uL [facility] MCV 90.3 80.0 - 100.0 fL [facility] MCH 31.2 27.0 - 32.0 pg [facility] MCHC 34.5 32.0 - 36.0 g/dL [facility] RDW 13.0 11.5 - 14.5 % [facility] MPV 8.9 8.4 - 12.0 fL [facility] NRBC 0.00 0 /100 WBCs [facility] ABSOLUTE NRBC 0.00 0 K/uL [facility] DIFF METHOD Auto [facility] NEUTS 43.0(L) 48.0 - 76.0 % [facility] LYMPHS 45.1(H) 18.0 - 41.0 % [facility] MONOS 8.8 4.0 - 11.0 % [facility] EOS 2.3 0.0 - 5.0 % [facility] BASOS 0.5 0.0 - 1.5 % [facility] % IMMATURE GRANS 0.3 0.0 - 1.0 % [facility] ABSOLUTE NEUTS 2.75 1.92 - 7.60 K/uL [facility] ABSOLUTE LYMPHS 2.88 0.72 - 4.10 K/uL [facility] ABSOLUTE MONOS 0.56 0.16 - 1.10 K/uL [facility] ABSOLUTE EOS 0.15 0.00 - 0.50 K/uL [facility] ABSOLUTE BASOS 0.03 0.00 - 0.15 K/uL [facility] ABS IMMATURE GRANS 0.02 0.00 - 0.10 K/uL [facility] Blood 05/26/2025 12:4 1 PM EDT 05/26/2025 1:13 PM EDT us Carlos Riley MD LAB BLOOD ORDERABLES Final Resu lt [facility] [address] [place] [address] * MRI BRAIN (TUMOR) WITH AND WITHOUT CONTRAST (05/26/2025 11:54 AM EDT) Anatomical Region Laterality Modality Head Magnetic Resonan ce 05/26/2025 11:5 4 AM EDT Impressions 05/26/2025 1:52 PM EDT Small foci of nonenhancing abnormality in the posterior jarrett, right more than left. The finding is atypical for recurrent lymphoma and maybe related to treatment or other inflammatory etiologies. Narrative 05/26/2025 1:52 PM EDT MRI BRAIN (TUMOR) WITH AND WITHOUT CONTRAST Referring clinician's provided indication for this examination in Epic: * Primary RECREATIONAL DIRECTOR lymphoma, monitor TECHNIQUE: Multi-sequence, multi-planar MRI of the brain was performed before and after intravenous contrast. COMPARISON: MRI BRAIN (TUMOR) WITH AND WITHOUT CONTRAST ; MRI BRAIN (TUMOR) WITH AND WITHOUT CONTRAST FINDINGS: Brain Parenchyma: There are small foci of T2 hyperintensity in the posterior jarrett, right more than left on images 8-9, series 9. No evidence of acute infarct, parenchymal enhancement or hemorrhage. Ventricular System and Extra-Axial Spaces: There is no evidence of midline shift or hydrocephalus. Extracranial Structures: Expected arterial flow signal is observed at the skull base. Left mastoid effusion. Procedure Note Stephen Robles MD, PhD - 05/26/2025 MRI BRAIN (TUMOR) WITH AND WITHOUT CONTRAST Referring clinician's provided indication for this examination in [facility]: *Primary RECREATIONAL DIRECTOR lymphoma, monitor TECHNIQUE: Multi-sequence, multi-planar MRI of the brain was performedbefore and after intravenous contrast. COMPARISON: MRI BRAIN (TUMOR) WITH AND WITHOUT CONTRAST ; MRIBRAIN (TUMOR) WITH AND WITHOUT CONTRAST FINDINGS: Brain Parenchyma: There are small foci of T2 hyperintensity in theposterior jarrett, right more than left on images 8-9, series 9. No evidenceof acute infarct, parenchymal enhancement or hemorrhage. Ventricular System and Extra-Axial Spaces: There is no evidence of midlineshift or hydrocephalus. Extracranial Structures: Expected arterial flow signal is observed at theskull base. Left mastoid effusion. IMPRESSION: Small foci of nonenhancing abnormality in the posterior jarrett, right morethan left. The finding is atypical for recurrent lymphoma and mayberelated to treatment or other inflammatory etiologies. Carlos Riley MD IMG MR HEAD/NECK Final Result * MRI BRAIN (TUMOR) WITH AND WITHOUT CONTRAST (03/17/2025 2:19 PM EDT) Anatomical Region Laterality Modality Head Magnetic Resonan ce 03/17/2025 4:55 PM EDT Impressions 03/17/2025 4:57 PM EDT No evidence of recurrent disease. New right maxillary sinus disease with air- fluid level. Narrative 03/17/2025 4:57 PM EDT MRI BRAIN (TUMOR) WITH AND WITHOUT CONTRAST Referring clinician's provided indication for this examination in [facility]: * Primary RECREATIONAL DIRECTOR lymphoma, monitor TECHNIQUE: Multi-sequence, multi-planar MRI of the brain was performed before and after intravenous contrast. COMPARISON: 01/06/2025 FINDINGS: Ventricles again mildly prominent sulci but stable. No acute hemorrhage diffusion abnormality seen. New right maxillary sinus disease with air-fluid level. After contrast no abnormal enhancing foci noted. Procedure Note Angélica Aragon MD - 03/17/2025 MRI BRAIN (TUMOR) WITH AND WITHOUT CONTRAST Referring clinician's provided indication for this examination in [facility]: *Primary RECREATIONAL DIRECTOR lymphoma, monitor TECHNIQUE: Multi-sequence, multi-planar MRI of the brain was performedbefore and after intravenous contrast. COMPARISON: 01/06/2025 FINDINGS: Ventricles again mildly prominent sulci but stable. No acute hemorrhagediffusion abnormality seen. New right maxillary sinus disease withair-fluid level. After contrast no abnormal enhancing foci noted. IMPRESSION: No evidence of recurrent disease. New right maxillary sinus disease withair- fluid level. Rosa Maria Swanson PA-C IMG MR HEAD/NECK Final R esult * Autofluorescence - OU - Both Eyes (03/17/2025 9:33 AM EDT) Anatomical Region Laterality Modality Head Optical Coherenc e Tomography Narrative 03/19/2025 11:12 AM EDT Right Eye Disease has: been stable. Left Eye Disease has: been stable. Notes OD: scattered hypo autofluorescence in superior macula, near periphery 360 - stable OS: nasal periphery hypoautofluorescence - stable Delores Rhoades MD OPHTHALMOLOGY IMAGING Final Resu lt * OCT, RETINA - OU - BOTH EYES - [place]; Retina (03/17/2025 9:33 AM EDT) Narrative [facility] - 03/19/2025 11:12 AM EDT Right Eye Disease has: been stable. Left Eye Quality was good. Disease has: been stable. Notes OD: retinal atrophy, IRF, superior SRHM, RPE changes, mild increase in IRF cysts OS: RPE changes, thin outer retinal layer, trace ERM - stable Delores Rhoades MD OPHTHALMOLOGY IMAGING Final Resu lt [facility] * (ABNORMAL) Lipid panel (09/20/2021 7:44 AM EST) CHOLESTEROL 234(H) <200 mg/dL [facility] LIC# [id number] TRIGLYCERIDES 105 35 - 150 mg/dL [facility] LIC# [id number] HDL 73 40 - 80 mg/dL [facility] LIC# [id number] CALCULATED LDL 140(H) 50 - 129 mg/dL [facility] LIC# [id number] VLDL 21 mg/dL [facility] LIC# [id number] CARDIAC RISK RATIO 3.2 0.0 - 5.0 D [facility] LIC# [id number] Blood 09/20/2021 7:44 AM EST 09/20/2021 7:58 AM EST Rosa Maria Swanson PA-C LAB BLOOD ORDERABLES Fin al Result [facility] LIC# [id number] [address] [place] [address] * Hepatitis C Antibody with Reflex to HCV, RNA quantitative Real-Time PCR (06/16/2021 12:38 PM EDT) HCV Ab Negative Negative [facility]PATH SUPERIOR Comment: (NOTE) Fatell-sk-bbyudu ratio is <1.00. Blood 06/16/2021 12:3 8 PM EDT 06/16/2021 12:42 PM EDT Rosa Maria Swanson PA-C LAB BLOOD ORDERABLES Fin al Result [facility] [address] [place] [address] from Last 3 Months or Most Recently Relevant to Health Maintenance Insurance [employer] [facility] NET FULL LIMITED [facility] NET FULL HEALTH LIMITED [facility] SAFETY NET FULL LIMITED [facility] [place] [place] [address] LIMITED [facility] SAFETY NET FULL LIMITED [facility] SAFETY NET FULL [facility] LIMITED [place] SAFETY NET FULL [facility] SAF[facility] NET FULL [facility]ALTH SAFETY NET FULL [place] LIMITED HEALTH SAFETY NET FULL [place] LIMITED HEALTH SAFETY NET FULL [facility] Address: [address] [place] [address] SAFETY NET DENTAL Advance Directives For more information, please contact: [phone] (9AM - 5PM [facility], Saturday-Saturday) Documents on File Type Date Recorded 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 10/28/2023 5:10 PM * Full Code (Latest Code Status on File) Date Activated Date Inactivated Comments 01/13/2024 8:01 PM Question Answer Comments Code Status Confirmed With: Patient Code Status Communicated To: Inpatient Attending * Full Code Date Activated Date Inactivated Comments 11/18/2023 9:20 PM 01/13/2024 8:01 PM Question Answer Comments Code Status Confirmed With: Patient Code Status Communicated To: Other (specify belo w) Code Discussion Comments: resident * Full Code Date Activated Date Inactivated Comments 11/04/2023 6:15 PM 11/18/2023 9:20 PM Question Answer Comments Code Status Confirmed With: Patient * Full Code Date Activated Date Inactivated Comments 10/21/2023 8:14 PM 11/04/2023 6:15 PM Question Answer Comments Code Status Confirmed With: Patient * Full Code Date Activated Date Inactivated Comments 10/08/2023 8:53 PM 10/21/2023 8:14 PM Question Answer Comments Code Status Confirmed With: Patient Healthcare Agents on File Name Relationship Healthcare Agent Brandi Lozano Life Partner .Primary Health Care Agent (Proxy form on file) Care Teams Etcher Photoengraving Relationship Specialty Start Date End Date Pcp, Unknown PCP - General 09/02/24 Trent Banks MD [email or web address] Radiation Oncology 10/02/21 Carlos Riley MD [address] [place] [address] Kelvin@[facility] Primary Oncologist Neurology 10/02/21 Jacqueline Mccallum, RN [address] [place], [place] Julian@[email or web address] Primary Infusion Nurse 10/19/21 Jacqueline Drummond, [address] [address] [email or web address] Publishing Specialist Oncology 11/27/21 Bianca Cedeño ENCAPSULATOR [address] [place] [address] Tanya@[facility] Internal Medicine 10/08/23 Rosa Maria Swanson PA-C [address] [place] [address] Celina@[facility] Physician Power Plant Operator Apprentice 11/04/23 Marta Fink [address] [place] [address] Audrey @[facility] Personal Care Worker 12/12/23 Ree Rasmussen RN [address] [place] [address] CHARLIE@[facility] Primary Infusion Nurse 11/02/24 Stephanie Zuniga, ROSELINE [address] [place] [address] MARYJANE@[facility] Associate Infusion Nurse 11/02/24 Niyah Kim, ROSELINE [address] [place] [address] [email or web address] Associate Infusion Nurse 11/02/24 Johan Vilchis MD [address] [place] [address] Ophthalmology 04/02/25 Additional Source Comments The information contained in this document represents components of the legal health record. It is not the complete legal health record.[facility]
--- OUTSIDE RECORDS SUMMARY | 2025-06-01 18:37 | XMS_ITS | Encounter Summary ---
Author Organization [facility] Address [address] [facility] [address] [place] [address] Phone Care Team Providers Care Rn Ccu Name Role Phone Agustin Sanchez MD Primary Care Provider Trent Banks MD Unavailable [phone] Sandra Riley MD Unavailable [phone] Jacqueline Mccallum RN Unavailable Mel [email or web address]. Jacqueline Aden BITUMASTIC APPLIER Unavailable [phone] Bianca Cedeño PEST CONTROLLER Unavailable [phone] Rosa Maria Ervin PA-C Unavailable [phone] Marta Fink Unavailable Gregory Odonnell@[facility] Pcp, Unknown Primary Care Provider UnavailRee Eugene RN Unavailable [phone] Stephanie Major RN Unavailable NATHANIEL MITCHELL@[email or web address] Niyah Kim RN Unavailable [email or web address] Johan Vilchis MD Unavailable [phone] Encounter Details Date Type Department Care Team (Late st Contact Info) Description 02/05/2024 Procedure Pass [facility] Radiology Department [address] [place] [address] Social History Tobacco Use Types Packs/Day Years Used Date Smoking Tobacco: Every Day Cigarettes 0.5 35.8 Started: 08/26/1989 Smokeless Tobacco: Never Comments:10 cigarettes/day Alcohol Use Standard Drinks/Week Comments [...] as food, clothing, or medical care? No 01/13/2024 In the past 12 months have y ou been in a relationship with a person who hurts, threatens, or tries to control you? No 01/13/2024 Are you denied basic needs s uch as food, clothing, or medical care? No 01/13/2024 In the past 12 months have y ou been in a relationship with a person who hurts, threatens, or tries to control you? No 01/13/2024 Comments No Sex and Gender Information Value Date Recorded Sex Assigned at Female 06/12/2021 3:58 PM EDT Legal Sex Female 9:58 AM EDT Gender Identity Female 06/12/2021 3:58 PM EDT Sexual Orientation Straight 06/12/2021 3: 58 PM EDT documented as of this encounter Plan of Treatment Upcoming Encounters Date Type Department Care Team (Late st Contact Info) Description 05/26/2025 Procedure Pass [facility] Radiology Department [address] [place] [address] 06/23/2025 2:30 PM EDT Ancillary Procedure [facility] Radiology Department [address] [place] [address] Sandra Riley MD [address] [place] [address] Kelvin@[facility] 06/23/2025 3:30 PM EDT Blood Draw Laboratory Services, [facility] [address] [facility], 2nd [place] [address] Sandra Riley MD [address] [place] [address] Kelvin@[facility] 06/23/2025 4:00 PM EDT Office Visit [facility], [facility] [address], 9th [place] [address] Sandra Riley MD [address] [place] [address] Kelvin@[facility] 08/11/2025 1:20 PM EST Telemedicine [facility] [address] [facility]2 [place] [address] Lynda Villafana MD [address] [place] [address], [place] [address] ABDI@[facility] 09/15/2025 9:20 AM EST Office Visit [facility] [address] [place] [address] Delores Rhoades MD [address] [place] [address] [email or web address] documented as of this encounter Visit Diagnoses Not on filedocumented in this encounter Additional Health Concerns Infection Onset Date Last Indicated Resolved Time CDiff-Risk 02/07/2024 02/07/2024 02/14/2024 1:22 AM EDT documented as of this encounter Care Teams Rn Ccu Relationship Specialty Start Date End Date Agustin Sanchez MD PCP - General Internal Medicine 06/26/21 09/01/24 Pcp, Unknown PCP - General 09/02/24 Trent Banks MD [email or web address] Radiation Oncology 10/02/21 Sandra Riley MD [address] [place] [address] Kelvin@[facility] Primary Oncologist Neurology 10/02/21 Jacqueline Mccallum, RN [address] [place], [place] Julian@[email or web address] Primary Infusion Nurse 10/19/21 Jacqueline Drummond, BITUMASTIC APPLIER [address] [place] [address] [email or web address] Pattern Duplicator Oncology 11/27/21 Bianca Cedeño, PEST CONTROLLER [address] [address] Tanya@[facility] Internal Medicine 10/08/23 Rosa Maria Swanson PA-C [address] [place] [address] Celina@[facility] Physician Mainstreaming Facilitator 11/04/23 Marta Fink [address] [place] [address] Audrey @[facility] Yarn Sorter 12/12/23 Ree Rasmussen, RO[address] [place] [address] CHARLIE@[facility] Primary Infusion Nurse 11/02/24 Stephanie Zuniga, RO[address] [place] [address] MARYJANE@[facility] Associate Infusion Nurse 11/02/24 Niyah Kim RN [address] [place] [address] [email or web address] Associate Infusion Nurse 11/02/24 Johan Vilchis MD [address] [place] [address] Ophthalmology 04/02/25 documented as of this encounter Additional Source Comments The information contained in this document represents components of the legal health record. It is not the complete legal health record.[facility]
--- OUTSIDE RECORDS SUMMARY | 2025-06-01 18:38 | XMS_ITS | Encounter Summary ---
Author Organization [facility] Address [address] [place] [address] Phone Care Team Providers Care Laborer Steel Handling Name Role Phone Agustin Sanchez MD Primary Care Provider Trent Banks MD Unavailable [phone] Sandra Riley MD Unavailable [phone] Jacqueline Mccallum RN Unavailable Mel [email or web address]. Jacqueline Aden CATHODE BUILDER Unavailable [phone] Bianca Cedeño MANAGER TAX Unavailable [phone] Rosa Maria Ervin PA-C Unavailable [phone] Marta Fink Unavailable Gregory Odonnell@[facility] Pcp, Unknown Primary Care Provider UnavailRee Eugene RN Unavailable [phone] Stephanie Major RN Unavailable NATHANIEL [email or web address]@[email or web address] Niyah Kim RN Unavailable [email or web address] Johan Vilchis MD Unavailable [phone] Encounter Details Date Type Department Care Team (Late st Contact Info) Description 12/27/2021 Procedure Pass [place], [facility] [place], MRI [address] [place] [address] Social History Tobacco Use Types Packs/Day Years [...] st Contact Info) Description 05/26/2025 Procedure Pass [facility] Radiology Department [address] [place] [address] 06/23/2025 2:30 PM EDT Ancillary Procedure [facility] Radiology Department [address] [place] [address] Sandra Riley MD [address] [place] [address] Kelvin@[facility] 06/23/2025 3:30 PM EDT Blood Draw Laboratory Services, [address] 2nd [place] [address] Sandra Riley MD [address] [place] [address] Kelvin@[facility] 06/23/2025 4:00 PM EDT Office Visit Center for Neuro-Oncology, [address], 9th [place] [address] Sandra Riley MD [address] [place] [address] Kelvin@[facility] 08/11/2025 1:20 PM EST Telemedicine [facility] [address] [facility]2 [place] [address] Lynda Villafana MD [address] [place] [address], [place] [address] RLIM@[facility] 09/15/2025 9:20 AM EST Office Visit [facility] [address] [place] [address] Delores Rhoades MD [address] [place] [address] [email or web address] documented as of this encounter Visit Diagnoses Not on filedocumented in this encounter Additional Health Concerns Infection Onset Date Last Indicated Resolved Time CoV-Presumed Comment:Resolved in office visit / telemedicine [...] documented as of this encounter Care Teams Laborer Steel Handling Relationship Specialty Start Date End Date Agustin Sanchez MD PCP - General Internal Medicine 06/26/21 09/01/24 Pcp, Unknown PCP - General 09/02/24 Trent Banks MD [email or web address] Radiation Oncology 10/02/21 Sandra Riley MD [address] [place] [address] Kelvin@[facility] Primary Oncologist Neurology 10/02/21 Jacqueline Mccallum, RN [address] [place] [address] Julian@[facility] Primary Infusion Nurse 10/19/21 Jacqueline Drummond, [facility] [address] [place] [address] [email or web address] Wire Web Worker Oncology 11/27/21 Bianca Cedeño, MANAGER TAX [address] [address] Tanya@[facility] Internal Medicine 10/08/23 Rosa Maria Swanson PA-C [address] [place] [address] Celina@[facility] Physician Lye Machine Operator 11/04/23 Marta Fink [address] [place] [address] Audrey @[facility] Home Energy Inspector 12/12/23 Ree Rasmussen RN [address] [place] [address] CHARLIE@[facility] Primary Infusion Nurse 11/02/24 Stephanie Zuniga, ROSELINE [address] [place] [address] MARYJANE@[facility] Associate Infusion Nurse 11/02/24 Niyah Kim RN [address] [place] [address] [email or web address] Associate Infusion Nurse 11/02/24 Johan Vilchis MD [address] [place] [address] Ophthalmology 04/02/25 documented as of this encounter Additional Source Comments The information contained in this document represents components of the legal health record. It is not the complete legal health record.[facility]
--- OUTSIDE RECORDS SUMMARY | 2025-06-01 18:38 | XMS_ITS | Patient Health Record ---
Author Organization [facility], Address [address] [place] [address] Care Team Providers Care Order Desk Clerk Name Role Phone [address] Primary C are Provider Unavailable LU KRISHNAN Unavailable [phone] Reason For Referral No Information Social History Sex Assigned At : Social History Observation Description Sex Assigned At Female Plan Of Treatment No Information Insurance Providers Payer Name Payer Address Payer Phone Subscriber Number Group Number Insured Name Patient Relationship to Insured Coverage Start Date Coverage End Date [place] of [place] [address] [place] [address] [id number] Suzie Fay Self - patient is the insured
--- OUTSIDE RECORDS SUMMARY | 2025-06-01 18:38 | XMS_ITS | Encounter Summary ---
Author Organization [facility] Address [address] [address] Phone Care Team Providers Care Physical Meteorologist Name Role Phone Unknown, Unknown Primary Care Provider Agustin Coates MD Primary Care Provider Trent Banks MD Unavailable [phone] Sandra Riley MD Unavailable [phone] Jacqueline Mccallum RN Unavailable Mel [email or web address]. Jacqueline Aden STATISTICAL CONSULTANT Unavailable [phone] Bianca Cedeño INSTRUCTOR INDUSTRIAL DESIGN Unavailable [phone] Rosa Maria Swanson PA-C Unavailable [phone] Marta Fink Unavailable Gregory Odonnell@[facility] Pcp, Unknown Primary Care Provider UnavailRee Eugene RN Unavailable [phone] Stephanie Major RN Unavailable NATHANIEL MITCHELL@[email or web address] Niyah Kim RN Unavailable [email or web address] [email or web address] Johan Vilchis MD Unavailable [phone] Encounter Details Date Type Department Care Team (Late st Contact Info) Description 06/14/[address] [facility] [place], MRI [address] [facility] 4th [place] [address] Social History Tobacco Use Types Packs/Day Years [...] st Contact Info) Description 05/26/2025 Procedure Pass [facility] Radiology Department [address] [place] [address] 06/23/2025 2:30 PM EDT Ancillary Procedure [facility] Radiology Department [address] [place] [address] Sandra Riley MD [address] [place] [address] Kelvin@[facility] 06/23/2025 3:30 PM EDT Blood Draw Laboratory Services, [facility] [address] [facility], 2nd [place] [address] Sandra Riley MD [address] [place] [address] Kelvin@[facility] 06/23/2025 4:00 PM EDT Office Visit Center for Neuro-Oncology, [facility] [address] [facility], 9th [place] [address] Sandra Riley MD [address] [place] [address] Kelvin@[facility] 08/11/2025 1:20 PM EST Telemedicine [facility] [address] [facility]2 [place] [address] Lynda Villafana MD [address] [place] [address], [place] [address] ABDI@[facility] 09/15/2025 9:20 AM EST Office Visit [facility] [address] [place] [address] Delores Rhoades MD [address] [place] [address] [email or web address] documented as of this encounter Visit Diagnoses [...] documented as of this encounter Care Teams Physical Meteorologist Relationship Specialty Start Date End Date Unknown, Unknown, MD PCP - General 05/24/21 06/25/21 Agustin Sanchez MD PCP - General Internal Medicine 06/26/21 09/01/24 Pcp, Unknown PCP - General 09/02/24 Trent Banks MD [email or web address] Radiation Oncology 10/02/21 Sandra Riley MD [address] [place] [address] Kelvin@[facility] Primary Oncologist Neurology 10/02/21 Jacqueline Mccallum RN [address] [place] [address] Julian@[facility] Primary Infusion Nurse 10/19/21 Jacqueline Drummond, [facility] [address] [place] [address] [email or web address] Nuclear Supervising Operator Oncology 11/27/21 Bianca Cedeño NP [address] [place] [address] Tanya@[facility] Internal Medicine 10/08/23 Rosa Maria Swanson PA-C [address] [place] [address] Celina@[facility] Physician Senior Analyst Programmer 11/04/23 Marta Fink [address] [place] [address] Audrey @[facility] Cast Associate 12/12/23 Ree Rasmussen RN [address] [place] [address] CHARLIE@[facility] Primary Infusion Nurse 11/02/24 Stephanie Zuniga, ROSELINE [address] [place] [address] MARYJANE@[facility] Associate Infusion Nurse 11/02/24 Niyah Kim, ROSE[address] [place] [address] [email or web address] Associate Infusion Nurse 11/02/24 Johan Vilchis MD [address] [place] [address] Ophthalmology 04/02/25 documented as of this encounter Additional Source Comments The information contained in this document represents components of the legal health record. It is not the complete legal health record.[facility]
--- OUTSIDE RECORDS SUMMARY | 2025-06-01 18:38 | XMS_ITS | Encounter Summary ---
Author Organization [facility] Address [address] [facility] [address] [place] [address] Phone Care Team Providers Care Retail Sales Consultant Name Role Phone Agustin Sanchez MD Primary Care Provider Trent Banks MD Unavailable [phone] Sandra Riley MD Unavailable [phone] Jacqueline Mccallum RN Unavailable Mel [email or web address]. Jacqueline Aden LOOM SETTER FOURDRINIER Unavailable [phone] Bianca Cedeño FOUNDATION DRILL OPERATOR HELPER Unavailable [phone] Rosa Maria Ervin PA-C Unavailable [phone] Marta Fink Unavailable Gregory Odonnell@[facility] Pcp, Unknown Primary Care Provider UnavailRee Eugene RN Unavailable [phone] Stephanie Major RN Unavailable NATHANIEL MITCHELL@[email or web address].[facility] Niyah Kim RN Unavailable niyah [email or web address] Johan Vilchis MD Unavailable [phone] Encounter Details Date Type Department Care Team (Late st Contact Info) Description 01/28/2024 Procedure Pass [facility] [address] [place] [address] Social History Tobacco Use Types Packs/Day Years [...] Contact Info) Description 05/26/2025 Procedure Pass [facility] Radiology Department [address] [place] [address] 06/23/2025 2:30 PM EDT Ancillary Procedure [facility] Radiology Department [address] [place] [address] Sandra Riley MD [address] [place] [address] Kelvin@[facility] 06/23/2025 3:30 PM EDT Blood Draw Laboratory Services, [facility] [address] [facility], 2nd [place] [address] Sandra Riley MD [address] [place] [address] Kelvin@[facility] 06/23/2025 4:00 PM EDT Office Visit [facility], [address], 9th [place] [address] Sandra Riley MD [address] [place] [address] Kelvin@[facility] 08/11/2025 1:20 PM EST Telemedicine [facility]2 [place] [address] Lynda Villafana MD [address] [place] [address], [place] [address] ABDI@[facility] 09/15/2025 9:20 AM EST Office Visit [facility] [address] 12th [place] [address] Delores Rhoades MD [address] [place] [address] [email or web address] documented as of this encounter Visit Diagnoses Not on filedocumented in this encounter Additional Health Concerns Infection Onset Date Last Indicated Resolved Time CDiff-Risk 01/28/2024 01/28/2024 01/29/2024 10:5 6 AM EDT CoV-Risk Comment:Per note documentation 02/01/2024 02/01/2024 6:07 AM EDT CDiff-Risk 02/07/2024 02/07/2024 02/14/2024 1:22 AM EDT documented as of this encounter Care Teams Retail Sales Consultant Relationship Specialty Start Date End Date Agustin Sanchez MD PCP - General Internal Medicine 06/26/21 09/01/24 Pcp, Unknown PCP - General 09/02/24 Trent Banks MD [email or web address] Radiation Oncology 10/02/21 Sandra Riley MD [address] [place] [address] Kelvin@[facility] Primary Oncologist Neurology 10/02/21 Jacqueline Mccallum, RN [address] [place] [address] Julian@[facility] Primary Infusion Nurse 10/19/21 Jacqueline Drummond, LOOM SETTER FOURDRINIER [address] [place] [address] Jorge@[facility] Diabetic Educator Oncology 11/27/21 Bianca Cedeño FOUNDATION DRILL OPERATOR HELPER [address] [address] Tanya@[facility] Internal Medicine 10/08/23 Rosa Maria Swanson PA-C [address] [place] [address] Celina@[facility] Physician Wildlife Protector 11/04/23 Marta Fink [address] [place] [address] Audrey @[facility] Dry Cell Battery Assembler 12/12/23 Ree Rasmussen RN [address] [place] [address] CHARLIE@[facility] Primary Infusion Nurse 11/02/24 Stephanie Zuniga, RN [address] [place] [address] MARYJANE@[facility] Associate Infusion Nurse 11/02/24 Niyah Kim, ROSELINE [address] [place] [address] [email or web address] Associate Infusion Nurse 11/02/24 Johan Vilchis MD [address] [place] [address] Ophthalmology 04/02/25 documented as of this encounter Additional Source Comments The information contained in this document represents components of the legal health record. It is not the complete legal health record.[facility]
--- OUTSIDE RECORDS SUMMARY | 2025-06-01 18:38 | XMS_ITS | Encounter Summary ---
Author Organization [facility] Address [address] [place] [address] Phone Care Team Providers Care Price Changer Name Role Phone Agustin Sanchez MD Primary Care Provider Trent Banks MD Unavailable [phone] Sandra Riley MD Unavailable [phone] Jacqueline Mccallum RN Unavailable Mel sears@[email or web address]. Jacqueline Aden CAMBERING MACHINE OPERATOR Unavailable [phone] Bianca Cedeño SCHOOL ADMISSIONS REPRESENTATIVE Unavailable [phone] Rosa Maria Ervin PA-C Unavailable [phone] Marta Fink Unavailable Gregory Odonnell@[facility] Pcp, Unknown Primary Care Provider UnavailRee Eugene RN Unavailable [phone] Stephanie Major RN Unavailable NATHANIEL MITCHELL@[email or web address].[place].[facility] Niyah Kim RN Unavailable niyah [email or web address].[facility] Johan Vilchis MD Unavailable [phone] Encounter Details Date Type Department Care Team (Late st Contact Info) Description 05/22/2023 Procedure Pass [facility], [facility] Cancer [place], MRI [address] [place] [address] Social History Tobacco Use Types Packs/Day Years Used Date Smoking Tobacco: Every Day Cigarettes Smokeless Tobacco: Never Comments:10 cigarettes/day Alcohol Use Standard Drinks/Week Comments Not Currently 0 (1 standard drink = 0.6 oz pur e alcohol) Education Answer Date Recorded Are you interested in more education? Not on myla e 12/20/2022 Are you concerned about learning? Not on file 12/20/2022 No 12/20/2022 No 12/20/2022 Digital Access Answer Date Recorded No 01/22/2023 No 01/22/2023 Reliable internet access at home? Not on file 01/22/2023 Device with a working camera? Not on file Comments No Sex and Gender Information Value Date Recorded Sex Assigned at Female 06/12/2021 3:58 PM EDT Legal Sex Female 9:58 AM EDT Gender Identity Female 06/12/2021 3:58 PM EDT Sexual Orientation Straight 06/12/2021 3: 58 PM EDT documented as of this encounter Plan of Treatment Upcoming Encounters Date Type Department Care Team (Late st Contact Info) Description 05/26/2025 Procedure Pass [facility] Radiology Department [address] [place] [address] 06/23/2025 2:30 PM EDT Ancillary Procedure [facility] Radiology Department [address] [place] [address] Sandra Riley MD [address] [place] [phone] Kelvin@[facility] 06/23/2025 3:30 PM EDT Blood Draw Laboratory Services, [facility] 450 [facility], 2nd [place] [address] Sandra Riley MD [address] [place] [address] Kelvin@[facility] 06/23/2025 4:00 PM EDT Office Visit [facility], [facility] 450 [facility], 9th [place] [address] Sandra Riley MD [address] [place] [address] Kelvin@[facility] 08/11/2025 1:20 PM EST Telemedicine [facility] Medical Specialties [address]2 [place] [address] Lynda Villafana MD 75 [facility], [place] [address] ABDI@[facility] 09/15/2025 9:20 AM EST Office Visit [facility] 243 [facility] 12th [place] [address] Delores Rhoades MD [address] [place] [address] [email or web address] documented as of this encounter Visit Diagnoses Not on filedocumented in this encounter Additional Health Concerns Infection Onset Date Last Indicated Resolved Time CoV-Risk Comment:Per note documentation 10/21/2023 10/21/2023 7:45 AM EST CDiff-Risk 01/21/2024 01/21/2024 01/21/2024 10:0 4 AM EDT CDiff-Risk 01/28/2024 01/28/2024 01/29/2024 10:5 6 AM EDT CoV-Risk Comment:Per note documentation 02/01/2024 02/01/2024 6:07 AM EDT CDiff-Risk 02/07/2024 02/07/2024 02/14/2024 1:22 AM EDT documented as of this encounter Care Teams Price Changer Relationship Specialty Start Date End Date Agustin Sanchez MD PCP - General Internal Medicine 06/26/21 09/01/24 Pcp, Unknown PCP - General 09/02/24 Trent Banks MD [email or web address] Radiation Oncology 10/02/21 Sandra Riley MD [address] [place] [address] Kelvin@[facility] Primary Oncologist Neurology 10/02/21 Jacqueline Mccallum, ROSELINE [address] [place] [phone] Julian@[facility] Primary Infusion Nurse 10/19/21 Jacqueline Drummond, [address] [address] Jorge@[facility] Pourer Crane Ladle Oncology 11/27/21 Bianca Cedeño NP [address] [place] [address] Tanya@[facility] Internal Medicine 10/08/23 Rosa Maria Swanson PA-C [address] [place] [address] Celina@[facility] Physician Chaplain Resident 11/04/23 Marta Fink [address] [place] [address] Audrey @[facility] Planning Official 12/12/23 Ree Rasmussen RN [address] [place] [address] CHARLIE@[facility] Primary Infusion Nurse 11/02/24 Stephanie Zuniga, ROSELINE [address] [place] [address] MARYJANE@[facility] Associate Infusion Nurse 11/02/24 Niyah Kim, RN [address] [place] [address] [email or web address]. [facility] Associate Infusion Nurse 11/02/24 Johan Vilchis MD [address] [address] Ophthalmology 04/02/25 documented as of this encounter Additional Source Comments The information contained in this document represents components of the legal health record. It is not the complete legal health record.[facility]
--- OUTSIDE RECORDS SUMMARY | 2025-06-01 18:38 | XMS_ITS | Encounter Summary ---
Author Organization [facility] Address [address] [address] Phone Care Team Providers Care Pipefitter Name Role Phone Unknown, Unknown Primary Care Provider Agustin Coates MD Primary Care Provider Trent Banks MD Unavailable [phone] Sandra Riley MD Unavailable [phone] Jacqueline Mccallum RN Unavailable Mel sears@[facility].[place]. Jacqueline Aden FLY SETTER Unavailable [phone] Bianca Cedeño BARREL LEVELER Unavailable [phone] Rosa Maria Swanson PA-C Unavailable [phone] Marta Fink Unavailable Gregory Odonnell@[facility] Pcp, Unknown Primary Care Provider UnavailRee Eugene RN Unavailable [phone] Stephanie Major RN Unavailable NATHANIEL MITCHELL@[facility].[place].[facility] Niyah Kim RN Unavailable [email or web address] [email or web address] Johan Vilchis MD Unavailable [phone] Encounter Details Date Type Department Care Team (Late st Contact Info) Description 06/14/2021 Procedure Pass [facility] [place] [facility] [place], MRI [address] [facility] [address] [place] [address] Social History Tobacco Use Types [...] st Contact Info) Description 05/26/2025 Procedure Pass [facility] Radiology Department [address] [place] [address] 06/23/2025 2:30 PM EDT Ancillary Procedure [facility] Radiology Department [address] [place] [address] Sandra Riley MD [address] [place] [address] Kelvin@[facility] 06/23/2025 3:30 PM EDT Blood Draw Laboratory Services, [facility] 450 [facility], 2nd [place] [address] Sandra Riley MD [address] [place] [address] Kelvin@[facility] 06/23/2025 4:00 PM EDT Office Visit [facility], [facility] 450 [facility], 9th [place] [address] Sandra Riley MD [address] [place] [address] Kelvin@[facility] 08/11/2025 1:20 PM EST Telemedicine [facility] 45 [facility]2 [place] [address] Lynda Villafana MD [address] [place] [address], [place] [address] ABDI@[email or web address] 09/15/2025 9:20 AM EST Office Visit [facility] [address] 12th [place] [address] Delores Rhoades MD [address] [place] [address] hayley@[facility] documented as of this encounter [...] documented as of this encounter Care Teams Pipefitter Relationship Specialty Start Date End Date Unknown, Unknown, MD PCP - General 05/24/21 06/25/21 Agustin Sanchez MD PCP - General Internal Medicine 06/26/21 09/01/24 Pcp, Unknown PCP - General 09/02/24 Trent Banks MD [email or web address] Radiation Oncology 10/02/21 Sandra Riley MD 75 [place] [address] Kelvin@[facility] Primary Oncologist Neurology 10/02/21 Jacqueline Mccallum RN [address] [place] [phone] Julian@[facility] Primary Infusion Nurse 10/19/21 Jacqueline Drummond, [facility] 35 [place] [address] Jorge@[facility] Eligibility Technician Oncology 11/27/21 Bianca Cedeño NP [address] [place] [address] Tanya@[facility] Internal Medicine 10/08/23 Rosa Maria Swanson PA-C [address] [place] [address] Celina@[facility] Physician Engineer/Conductor 11/04/23 Marta Fink [address] [place] [address] Audrey @[facility] Yoke Presser 12/12/23 Ree Rasmussen RN [address] [place] [address] CHARLIE@[facility] Primary Infusion Nurse 11/02/24 Stephanie Zuniga, ROSELINE [address] [place] [address] MARYJANE@[facility] Associate Infusion Nurse 11/02/24 Niyah Kim, ROSELINE [address] [place] [address] [email or web address] Associate Infusion Nurse 11/02/24 Johan Vilchis MD [address] [place] [address] Ophthalmology 04/02/25 documented as of this encounter Additional Source Comments The information contained in this document represents components of the legal health record. It is not the complete legal health record.[facility]
--- OUTSIDE RECORDS SUMMARY | 2025-06-01 18:38 | XMS_ITS | Encounter Summary ---
Author Organization [facility] Address [address] [facility] [address] [place] [address] Phone Care Team Providers Care Well Puller Name Role Phone Unknown, Unknown Primary Care Provider Agustin Coates MD Primary Care Provider Trent Banks MD Unavailable [phone] Sandra Riley MD Unavailable [phone] Jacqueline Mccallum RN Unavailable Mel [email or web address]@[email or web address].[email or web address]. Jacqueline Aden SUPERVISOR BRINE Unavailable [phone] Bianca Cedeño POWERHOUSE OPERATOR Unavailable [phone] Rosa Maria Swanson PA-C Unavailable [phone] Marta Fink Unavailable Gregory Odonnell@[facility] Pcp, Unknown Primary Care Provider UnavailRee Eugene RN Unavailable [phone] Stephanie Major RN Unavailable NATHANIEL MITCHELL@[email or web address].[facility] Niyah Kim RN Unavailable niyah [email or web address] Johan Vilchis MD Unavailable [phone] Encounter Details Date Type Department Care Team (Late st Contact Info) Description 06/16/2021 Procedure Pass [facility] Periop [address] [place] [address] Social History Tobacco Use Types Packs/Day Years [...] st Contact Info) Description 05/26/2025 Procedure Pass [facility] Radiology Department [address] [place] [address] 06/23/2025 2:30 PM EDT Ancillary Procedure [facility] Radiology Department [address] [place] [address] Sandra Riley MD [address] [place] [address] Kelvin@[facility] 06/23/2025 3:30 PM EDT Blood Draw Laboratory Services, [address], 2nd [place] [address] Sandra Riley MD [address] [place] [address] Kelvin@[facility] 06/23/2025 4:00 PM EDT Office Visit [facility], [address], 9th [place] [address] Sandra Riley MD [address] [place] [address] Kelvin@[facility] 08/11/2025 1:20 PM EST Telemedicine [facility] 45 [facility]2 [place] [address] Lynda Villafana MD [address] [place] [address], [place] [address] RLIM@[facility] 09/15/2025 9:20 AM EST Office Visit [facility] [address] 12th [place] [address] Delores Rhoades MD [address] [place] [address] [email or web address] documented as of this encounter Visit [...] documented as of this encounter Care Teams Well Puller Relationship Specialty Start Date End Date Unknown, Unknown, MD PCP - General 05/24/21 06/25/21 Agustin Sanchez MD PCP - General Internal Medicine 06/26/21 09/01/24 Pcp, Unknown PCP - General 09/02/24 Trent Banks MD [email or web address] Radiation Oncology 10/02/21 Sandra Riley MD 75 [place] [address] Kelvin@[facility] Primary Oncologist Neurology 10/02/21 Jacqueline Mccallum, RN [address] [place] [address] Julian@[facility] Primary Infusion Nurse 10/19/21 Jacqueline Drummond, [address] [address] Jorge@[facility] Ingot Caster Oncology 11/27/21 Bianca Cedeño, POWERHOUSE OPERATOR [address] [place] [address] Tanya@[facility] Internal Medicine 10/08/23 Rosa Maria Swanson PA-C [address] [place] [address] Celina@[facility] Physician Rehabilitation Services Counselor 11/04/23 Marta Fink [address] [place] [address] Audrey @[facility] Timber Appraiser 12/12/23 Ree Rasmussen RN [address] [place] [address] CHARLIE@[facility] Primary Infusion Nurse 11/02/24 Stephanie Zuniga, ROSELINE [address] [place] [address] MARYJANE@[facility] Associate Infusion Nurse 11/02/24 Niyah Kim, ROSELINE [address] [place] [address] [email or web address] Associate Infusion Nurse 11/02/24 Johan Vilchis MD [address] [address] Ophthalmology 04/02/25 documented as of this encounter Additional Source Comments The information contained in this document represents components of the legal health record. It is not the complete legal health record.[facility]
--- OUTSIDE RECORDS SUMMARY | 2025-06-01 18:38 | XMS_ITS | Encounter Summary ---
Author Organization [facility] Address [address] [place] [address] Phone Care Team Providers Care Knowledge Manager Name Role Phone Agustin Sanchez MD Primary Care Provider Trent Banks MD Unavailable [phone] Sandra Riley MD Unavailable [phone] Jacqueline Mccallum RN Unavailable Mel [email or web address].[email or web address]. Jacqueline Aden SALES MANAGER [place] Unavailable [phone] Bianca Cedeño BREAKFAST AND ROOM ATTENDANT Unavailable [phone] Rosa Maria Ervin PA-C Unavailable [phone] Marta Fink Unavailable Gregory Odonnell@[facility] Pcp, Unknown Primary Care Provider UnavailRee Eugene RN Unavailable [phone] Stpehanie Major RN Unavailable NATHANIEL MITCHELL@[facility].[place].[facility] Niyah Kim RN Unavailable niyah [email or web address] Johan Vilchis MD Unavailable [phone] Encounter Details Date Type Department Care Team (Late st Contact Info) Description 05/22/2023 Procedure Pass [facility] Imaging Department, [facility] Cancer [place], MRI [address] [place] [address] Social History Tobacco Use Types Packs/Day Years [...] st Contact Info) Description 05/26/2025 Procedure Pass [facility] Radiology Department [address] [place] [address] 06/23/2025 2:30 PM EDT Ancillary Procedure [facility] Radiology Department [address] [place] [address] Sandra Riley MD [address] [place] [address] Kelvin@[facility] 06/23/2025 3:30 PM EDT Blood Draw Laboratory Services, [facility] 450 [facility], 2nd [place] [address] Sandra Riley MD [address] [place] [address] Kelvin@[facility] 06/23/2025 4:00 PM EDT Office Visit [facility], [facility] 450 [facility], 9th [place] [address] Sandra Riley MD 75 [place] [address] Kelvin@[facility] 08/11/2025 1:20 PM EST Telemedicine [facility] Medical Specialties [address]2 [place] [address] Lynda Villafana MD 75 [facility], [place] [address] ABDI@[facility] 09/15/2025 9:20 AM EST Office Visit [facility] 243 [facility] 12th [place] [address] Delores Rhoades MD [address] [place] [address] [email or web address] documented as of this encounter Visit [...] documented as of this encounter Care Teams Knowledge Manager Relationship Specialty Start Date End Date Agustin Sanchez MD PCP - General Internal Medicine 06/26/21 09/01/24 Pcp, Unknown PCP - General 09/02/24 Trent Banks MD [email or web address] Radiation Oncology 10/02/21 Sandra Riley MD [address] [place] [address] Kelvin@[facility] Primary Oncologist Neurology 10/02/21 Jacqueline Mccallum, ROSELINE [address] [place] [address] Julian@[facility] Primary Infusion Nurse 10/19/21 Jacqueline Drummond, [address] [address] Jorge@[facility] Fish Net Stringer Oncology 11/27/21 Bianca Cedeño NP [address] [place] [address] Tanya@[facility] Internal Medicine 10/08/23 Rosa Maria Swanson PA-C [address] [place] [address] Celina@[facility] Physician Ui Ux Developer 11/04/23 Marta Fink [address] [place] [address] Audrey @[facility] Fur Stylist 12/12/23 Ree Rasmussen RN [address] [place] [address] CHARLIE@[facility] Primary Infusion Nurse 11/02/24 Stephanie Zuniga, ROSELINE [address] [place] [address] MARYJANE@[email or web address] Associate Infusion Nurse 11/02/24 Niyah Kim, RN [address] [place] [address] [email or web address] Associate Infusion Nurse 11/02/24 Johan Vilchis MD [address] [address] Ophthalmology 04/02/25 documented as of this encounter Additional Source Comments The information contained in this document represents components of the legal health record. It is not the complete legal health record.[facility]
--- OUTSIDE RECORDS SUMMARY | 2025-06-01 18:38 | XMS_ITS | Encounter Summary ---
Author Organization [facility] Address [address] [place] [address] Phone Care Team Providers Care Director Of Corporate Real Estate Name Role Phone Agustin Sanchez MD Primary Care Provider Trent Banks MD Unavailable [phone] Sandra Riley MD Unavailable [phone] Jacqueline Mccallum RN Unavailable Mel sears@[facility].[email or web address]. Jacqueline Aden HISTOLOGY TECHNICIAN Unavailable [phone] Bianca Cedeño SENIOR ELECTRICAL ESTIMATOR Unavailable [phone] Rosa Maria Ervin PA-C Unavailable [phone] Marta Fink Unavailable Gregory Odonnell@[facility] Pcp, Unknown Primary Care Provider UnavailRee Eugene RN Unavailable [phone] Stephanie Major RN Unavailable NATHANIEL MITCHELL@[facility] Niyah Kim RN Unavailable niyah [email or web address] Johan Vilchis MD Unavailable [phone] Encounter Details Date Type Department Care Team (Late st Contact Info) Description 05/30/2022 Procedure Pass [facility] MR Imaging, [place] [address] [place] [address] Social History Tobacco Use Types Packs/Day Years Used Date Smoking Tobacco: Every Day Cigarettes Smokeless Tobacco: Never Comments:10 cigarettes/day Alcohol Use Standard Drinks/Week Comments Not Currently 0 (1 standard drink = 0.6 oz pur e alcohol) Comments No Sex and Gender Information Value Date Recorded Sex Assigned at Female 06/12/2021 3:58 PM EDT Legal Sex Female 9:58 AM EDT Gender Identity Female 06/12/2021 3:58 PM EDT Sexual Orientation Straight 06/12/2021 3: 58 PM EDT documented as of this encounter Plan of Treatment Upcoming Encounters Date Type Department Care Team (Late st Contact Info) Description 05/26/2025 Procedure Pass [facility] Radiology Department [address] [place] [address] 06/23/2025 2:30 PM EDT Ancillary Procedure [facility] Radiology Department [address] [place] [address] Sandra Riley MD [address] [place] [address] Kelvin@[facility] 06/23/2025 3:30 PM EDT Blood Draw Laboratory Services, [facility] 450 [facility], 2nd [place] [address] Sandra Riley MD [address] [place] [address] Kelvin@[facility] 06/23/2025 4:00 PM EDT Office Visit Center for Neuro-Oncology, [facility] 450 [facility], 9th [place] [address] Sandra Riley MD [address] [place] [address] Kelvin@[facility] 08/11/2025 1:20 PM EST Telemedicine [facility] 45 [facility]2 [place] [address] Lynda Villafana MD [address] [place] [address], [place] [address] [email or web address]@[facility] 09/15/2025 9:20 AM EST Office Visit [facility] [address] 12th [place] [address] Delores Rhoades MD [address] [place] [address] [email or web address] documented as of this encounter [...] documented as of this encounter Care Teams Director Of Corporate Real Estate Relationship Specialty Start Date End Date Agustin Sanchez MD PCP - General Internal Medicine 06/26/21 09/01/24 Pcp, Unknown PCP - General 09/02/24 Trent Banks MD [email or web address] Radiation Oncology 10/02/21 Sandra Riley MD [address] [place] [address] Kelvin@[facility] Primary Oncologist Neurology 10/02/21 Jacqueline Mccallum, RN [address] [place] [address] Julian@[facility] Primary Infusion Nurse 10/19/21 Jacqueline Drummond, [facility] [address] [place] [address] Jroge@[facility] Gang Head Saw Operator Oncology 11/27/21 Bianca Cedeño, SENIOR ELECTRICAL ESTIMATOR [address] [address] Tanya@[facility] Internal Medicine 10/08/23 Rosa Maria Swanson PA-C [address] [place] [address] Celina@[facility] Physician Director Of Corporate Real Estate 11/04/23 Marta Fink [address] [place] [address] Audrey @[facility] Livestock Exhibitor 12/12/23 Ree Rasmussen RN [address] [place] [address] CHARLIE@[facility] Primary Infusion Nurse 11/02/24 Stephanie Zuniga, ROSELINE [address] [place] [address] MARYJANE@[facility] Associate Infusion Nurse 11/02/24 Niyah Kim RN [address] [place] [address] [email or web address] Associate Infusion Nurse 11/02/24 Johan Vilchis MD [address] [place] [address] Ophthalmology 04/02/25 documented as of this encounter Additional Source Comments The information contained in this document represents components of the legal health record. It is not the complete legal health record.[facility]
--- OUTSIDE RECORDS SUMMARY | 2025-06-01 18:38 | XMS_ITS | Encounter Summary ---
Author Organization [facility] Address [address] [address] Phone Care Team Providers Care Dietitian Research Name Role Phone Unknown, Unknown Primary Care Provider Agustin Coates MD Primary Care Provider Trent Banks MD Unavailable [phone] Sandra Riley MD Unavailable [phone] Jacqueline Mccallum RN Unavailable Mel [email or web address]@[email or web address]. Jacqueline Aden DOCK SUPERVISOR Unavailable [phone] Bianca Cedeño CHEESE SUPERVISOR Unavailable [phone] Rosa Maria Swanson PA-C Unavailable [phone] Marta Fink Unavailable Gregory Odonnell@[facility] Pcp, Unknown Primary Care Provider UnavailRee Eugene RN Unavailable [phone] Stephanie Major RN Unavailable NATHANIEL MITCHELL@[email or web address].[facility] Niyah Kim RN Unavailable niyah [email or web address].[place].[facility] Johan Vilchis MD Unavailable [phone] Encounter Details Date Type Department Care Team (Late st Contact Info) Description 06/07/2021 Procedure Pass [facility] Cancer [place], MRI 300 [facility] 4th [place] [address] Social History Tobacco Use Types Packs/Day Years Used Date Smoking Tobacco: Never Assessed Comments Unknown Sex and Gender Information Value Date Recorded Sex Assigned at Female 06/12/2021 3:58 PM EDT Legal Sex Female 9:58 AM EDT Gender Identity Female 06/12/2021 3:58 PM EDT Sexual Orientation Straight 06/12/2021 3: 58 PM EDT documented as of this encounter Last Filed Vital Signs Vital Sign Reading Time Taken Comments Blood Pressure - - Pulse - - Temperature - - Respiratory Rate - - Oxygen Saturation - - Inhaled Oxygen Concentration - - Weight 78.5 kg (173 lb) 06/08/2021 11:08 AM EDT Height - - Body Mass Index - - documented in this encounter Plan of Treatment Upcoming Encounters Date Type Department Care Team (Late st Contact Info) Description 05/26/2025 Procedure Pass [facility] Radiology Department [address] [place] [address] 06/23/2025 2:30 PM EDT Ancillary Procedure [facility] Radiology Department [address] [place] [address] Sandra Riley MD [address] [place] [address] Kelvin@[facility] 06/23/2025 3:30 PM EDT Blood Draw Laboratory Services, [address], 2nd [place] [address] Sandra Riley MD [address] [place] [address] Kelvin@[facility] 06/23/2025 4:00 PM EDT Office Visit Center for Neuro-Oncology, [facility] 450 [facility], 9th [place] [address] Sandra Riley MD [address] [place] [address] Kelvin@[facility] 08/11/2025 1:20 PM EST Telemedicine [facility] Medical Specialties 45 [facility] ASB2-2 [place] [address] Lynda Villafana MD 75 [facility], [place] [address] ABDI@[email or web address] 09/15/2025 9:20 AM EST Office Visit [facility] 243 [facility] 12th [place] [address] Delores Rhoades MD 243 [place] [address] [email or web address] documented as of this [...] documented as of this encounter Care Teams Dietitian Research Relationship Specialty Start Date End Date Unknown, Unknown, PCP - General 05/24/21 06/25/21 Agustin Sanchez MD PCP - General Internal Medicine 06/26/21 09/01/24 Pcp, Unknown PCP - General 09/02/24 Trent Banks MD [email or web address] Radiation Oncology 10/02/21 Sandra Riley MD [address] [place] [address] Kelvin@[facility] Primary Oncologist Neurology 10/02/21 Jacqueline Mccallum RN [address] [place] [address] Julian@[facility] Primary Infusion Nurse 10/19/21 Jacqueline Drummond, [address] [address] Jorge@[facility] Portable Feed Mill Operator Oncology 11/27/21 Bianca Cedeño NP [address] [place] [address] Tanya@[facility] Internal Medicine 10/08/23 Rosa Maria Swanson PA-C [address] [place] [address] Celina@[facility] Physician Insurance Verification Clerk 11/04/23 Marta Fink [address] [place] [address] Audrey @[facility] Archery Equipment Hay Sorter 12/12/23 Ree Rasmussen RN [address] [place] [address] CHARLIE@[facility] Primary Infusion Nurse 11/02/24 Stephanie Zuniga, ROSELINE [address] [place] [address] MARYJANE@[facility] Associate Infusion Nurse 11/02/24 Niyah Kim RN [address] [place] [address] [email or web address]. [facility] Associate Infusion Nurse 11/02/24 Johan Vilchis MD 85 [place] [address] Ophthalmology 04/02/25 documented as of this encounter Additional Source Comments The information contained in this document represents components of the legal health record. It is not the complete legal health record.[facility]
--- OUTSIDE RECORDS SUMMARY | 2025-06-01 18:38 | XMS_ITS | Encounter Summary ---
Author Organization [facility] Address [address] [address] Phone Care Team Providers Care Geoduck Diver Name Role Phone Unknown, Unknown Primary Care Provider Agustin Coates MD Primary Care Provider Trent Banks MD Unavailable [phone] Sandra Riley MD Unavailable [phone] Jacqueline Mccallum RN Unavailable Mel [email or web address]. Jacqueline Aden HAND SUTURE WINDER Unavailable [phone] Bianca Cedeño ENERGY SCHEDULER Unavailable [phone] Rosa Maria Swanson PA-C Unavailable [phone] Marta Fink Unavailable Gregory Odonnell@[facility] Pcp, Unknown Primary Care Provider UnavailRee Eugene RN Unavailable [phone] Stephanie Major RN Unavailable NATHANIEL [email or web address]@[email or web address].[facility] Niyah Kim RN Unavailable niyah [email or web address].[email or web address] Johan Vilchis MD Unavailable [phone] Encounter Details Date Type Department Care Team (Late st Contact Info) Description 06/14/2021 Procedure Pass [facility] Cancer [place] 300 [facility] 3rd [place] [address] Social History Tobacco Use Types [...] st Contact Info) Description 05/26/2025 Procedure Pass [facility] Radiology Department [address] [place] [address] 06/23/2025 2:30 PM EDT Ancillary Procedure [facility] Radiology Department [address] [place] [address] Sandra Riley MD [address] [place] [address] Kelvin@[facility] 06/23/2025 3:30 PM EDT Blood Draw Laboratory Services, [facility] 450 [facility], 2nd [place] [address] Sandra Riley MD [address] [place] [address] Kelvin@[facility] 06/23/2025 4:00 PM EDT Office Visit Center for Neuro-Oncology, [facility] 450 [facility], 9th [place] [address] Sandra Riley MD [address] [place] [address] Kelvin@[facility] 08/11/2025 1:20 PM EST Telemedicine [facility] 45 [facility]2 [place] [address] Lynda Villafana MD [address] [place] [address], [place] [address] ABDI@[facility] 09/15/2025 9:20 AM EST Office Visit [facility] [address] 12[address] [place] [address] Delores Rhoades MD [address] [place] [address] hayley@[email or web address] documented as of this encounter [...] documented as of this encounter Care Teams Geoduck Diver Relationship Specialty Start Date End Date Unknown, Unknown, MD PCP - General 05/24/21 06/25/21 Agustin Sanchez MD PCP - General Internal Medicine 06/26/21 09/01/24 Pcp, Unknown PCP - General 09/02/24 Trent Banks MD [email or web address] Radiation Oncology 10/02/21 Sandra Riley MD 75 [place] [address] Kelvin@[facility] Primary Oncologist Neurology 10/02/21 Jacqueline Mccallum RN [address] [place] [address] Julian@[email or web address] Primary Infusion Nurse 10/19/21 Jacqueline Drummond, [facility] 35 [place] [address] Jorge@[facility] Nuclear Physician Oncology 11/27/21 Bianca Cedeño NP [address] [place] [address] Tanya@[facility] Internal Medicine 10/08/23 Rosa Maria Swanson PA-C [address] [place] [address] Celina@[facility] Physician Special Deputy Sheriff 11/04/23 Marta Fink [address] [place] [address] Audrye @[facility] Catering Barista 12/12/23 Ree Rasmussen RN [address] [place] [address] CHARLIE@[facility] Primary Infusion Nurse 11/02/24 Stephanie Zuniga, ROSELINE [address] [place] [address] MARYJANE@[facility] Associate Infusion Nurse 11/02/24 Niyah Kim, ROSELINE [address] [place] [address] [email or web address] Associate Infusion Nurse 11/02/24 Johan Vilchis MD 85 [place] [address] Ophthalmology 04/02/25 documented as of this encounter Additional Source Comments The information contained in this document represents components of the legal health record. It is not the complete legal health record.[facility]
--- OUTSIDE RECORDS SUMMARY | 2025-06-01 18:38 | XMS_ITS | Encounter Summary ---
Author Organization [facility] Address [address] [facility] [address] [place] [address] Phone Care Team Providers Care Audioprosthologist Name Role Phone Agustin Sanchez MD Primary Care Provider Trent Banks MD Unavailable [phone] Sandra Riley MD Unavailable [phone] Jacqueline Mccallum RN Unavailable Mel [email or web address]. Jacqueline Aden AUTOMOTIVE GENERAL MANAGER Unavailable [phone] Bianca Cedeño FENCE MAKER Unavailable [phone] Rosa Maria Ervin PA-C Unavailable [phone] Marta Fink Unavailable Gregory Odonnell@[facility] Pcp, Unknown Primary Care Provider UnavailRee Eugene RN Unavailable [phone] Stephanie Major RN Unavailable NATHANIEL MITCHELL@[email or web address].[facility] Niyah Kim RN Unavailable [email or web address] [email or web address].[place].[email or web address] Johan Vilchis MD Unavailable [phone] Encounter Details Date Type Department Care Team (Late st Contact Info) Description 06/17/2023 Procedure Pass [facility] Invasive Cardiovascular Technologist [address] [place] [address] Social History Tobacco Use Types Packs/Day Years Used Date Smoking Tobacco: Every Day Cigarettes Smokeless Tobacco: Never Comments:10 cigarettes/day Alcohol Use Standard Drinks/Week Comments Not Currently 0 (1 standard drink = 0.6 oz pur e alcohol) Education Answer Date Recorded Are you interested in more education? Not on mlya e 12/20/2022 Are you concerned about learning? [...] st Contact Info) Description 05/26/2025 Procedure Pass [facility] [address] [place] [address] 06/23/2025 2:30 PM EDT Ancillary Procedure [facility] Radiology Department [address] [place] [address] Sandra Riley MD [address] [place] [address] Kelvin@[facility] 06/23/2025 3:30 PM EDT Blood Draw Laboratory Services, [facility] [address] [facility], 2nd [place] [address] Sandra Riley MD [address] [place] [address] Kelvin@[facility] 06/23/2025 4:00 PM EDT Office Visit [facility], [facility] [address] [facility], 9th [place] [address] Sandra Riley MD [address] [place] [address] Kelvin@[facility] 08/11/2025 1:20 PM EST Telemedicine [facility] 45 [facility] ASB2-2 [place] [address] Lynda Villafana MD [address] [facility], [place] [address] ABDI@[facility] 09/15/2025 9:20 AM EST Office Visit [facility] [address] [facility] 12th [place] [address] Delores Rhoades MD [address] [place] [address] [email or web address] documented as of this encounter Visit [...] documented as of this encounter Care Teams Audioprosthologist Relationship Specialty Start Date End Date Agustin Sanchez MD PCP - General Internal Medicine 06/26/21 09/01/24 Pcp, Unknown PCP - General 09/02/24 Trent Banks MD [email or web address] Radiation Oncology 10/02/21 Sandra Riley MD [address] [place] [address] Kelvin@[facility] Primary Oncologist Neurology 10/02/21 Jacqueline Mccallum RN [address] [place] [address] Julian@[facility] Primary Infusion Nurse 10/19/21 Jacqueline Drummond, [address] [address] Jorge@[email or web address] Protection Consultant Oncology 11/27/21 Bianca Cedeño NP [address] [place] [address] Tanya@[facility] Internal Medicine 10/08/23 Rosa Maria Swanson PA-C [address] [place] [address] Celina@[facility] Physician Biblical Studies Professor 11/04/23 Marta Fink [address] [place] [address] Audrey @[facility] Dough Maker 12/12/23 Ree Rasmussen RN [address] [place] [address] CHARLIE@[facility] Primary Infusion Nurse 11/02/24 Stephanie Zuniga, RN [address] [place] [address] MARYJANE@[facility] Associate Infusion Nurse 11/02/24 Niyah Kim, ROSELINE [address] [place] [address] [email or web address]. [facility] Associate Infusion Nurse 11/02/24 Johan Vilchis MD [address] [place] [address] Ophthalmology 04/02/25 documented as of this encounter Additional Source Comments The information contained in this document represents components of the legal health record. It is not the complete legal health record.[facility]
--- OUTSIDE RECORDS SUMMARY | 2025-06-01 18:38 | XMS_ITS | Encounter Summary ---
Author Organization [facility] Address [address] [place] [address] Phone Care Team Providers Care Consumer Electronics Merchandiser Name Role Phone Agustin Sanchez MD Primary Care Provider Trent Banks MD Unavailable Sandra Riley MD Unavailable [phone] Jacqueline Mccallum RN Unavailable Mel [email or web address]. Jacqueline Aden SHIRT HEMMER Unavailable [phone] Bianca Cedeño VAMP STITCHER Unavailable [phone] Rosa Maria Ervin PA-C Unavailable [phone] Marta Fink Unavailable Gregory Odonnell@[facility] Pcp, Unknown Primary Care Provider UnavailRee Eugene RN Unavailable [phone] Stephanie Major RN Unavailable NATHANIEL MITCHELL@[facility] Niyah Kim RN Unavailable niyah [email or web address] Johan Vilchis MD Unavailable [phone] Encounter Details Date Type Department Care Team (Late st Contact Info) Description 03/13/2023 Procedure Pass [facility] MR Imaging, Manuel [address] [place] [address] Social History Tobacco Use Types Packs/Day Years [...] st Contact Info) Description 05/26/2025 Procedure Pass [facility] Radiology Department [address] [place] [address] 06/23/2025 2:30 PM EDT Ancillary Procedure [facility] Radiology Department [address] [place] [address] Sandra Riley MD [address] [place] [address] Kelivn@[facility] 06/23/2025 3:30 PM EDT Blood Draw Laboratory Services, [facility] [address] [facility], 2nd [place] [address] Sandra Riley MD [address] [place] [address] Kelvin@[facility] 06/23/2025 4:00 PM EDT Office Visit Center for Neuro-Oncology, [facility] [address] [facility], 9th [place] [address] Sandra Riley MD [address] [place] [address] Kelvin@[facility] 08/11/2025 1:20 PM EST Telemedicine [facility] Specialties [address] ASB2-2 [place] [address] Lynda Villafana MD [address] [facility], [place] [address] ABDI@[facility] 09/15/2025 9:20 AM EST Office Visit [facility] 243 [facility] 12th [place] [address] Delores Rhoades MD [address] [place] [address] [email or web address] documented as of this encounter Visit [...] documented as of this encounter Care Teams Consumer Electronics Merchandiser Relationship Specialty Start Date End Date Agustin Sanchez MD PCP - General Internal Medicine 06/26/21 09/01/24 Pcp, Unknown PCP - General 09/02/24 Trent Banks MD [email or web address] Radiation Oncology 10/02/21 Sandra Riley MD [address] [place] [address] Kelvin@[facility] Primary Oncologist Neurology 10/02/21 Jacqueline Mccallum, ROSELINE [address] [place] [address] Julian@[facility] Primary Infusion Nurse 10/19/21 Jacqueline Drummond, [address] [address] Jorge@[facility] Community Health Specialist Oncology 11/27/21 Bianca Cedeño NP [address] [place] [address] Tanya@[facility] Internal Medicine 10/08/23 oRsa Maria Swanson PA-C [address] [place] [address] Celina@[facility] Physician Electric Screw Driver Operator 11/04/23 Marta Fink [address] [place] [address] Adurey @[facility] Terminal Operations Supervisor 12/12/23 Ree Rasmussen RN [address] [place] [address] CHARLIE@[facility] Primary Infusion Nurse 11/02/24 Stephanie Zuniga, RN [address] [place] [address] MARYJANE@[facility] Associate Infusion Nurse 11/02/24 Niyah Kim, ROSELINE [address] [place] [address] [email or web address]. [facility] Associate Infusion Nurse 11/02/24 Johan Vilchis MD [address] [place] [address] Ophthalmology 04/02/25 documented as of this encounter Additional Source Comments The information contained in this document represents components of the legal health record. It is not the complete legal health record.[facility]
--- OUTSIDE RECORDS SUMMARY | 2025-06-01 18:38 | XMS_ITS | Encounter Summary ---
Author Organization [facility] Address [address] [place] [address] Phone Care Team Providers Care Hospice Chaplain Name Role Phone Agustin Sanchez MD Primary Care Provider Trent Banks MD Unavailable [phone] Sandra Riley MD Unavailable [phone] Jacqueline Mccallum RN Unavailable Mel [email or web address]. Jacqueline Aden TEAM PHYSICIAN Unavailable [phone] Bianca Cedeño TAILING MACHINE OPERATOR Unavailable [phone] Rosa Maria Ervin PA-C Unavailable [phone] Marta Fink Unavailable Gregory Odonnell@[facility] Pcp, Unknown Primary Care Provider UnavailRee Eugene RN Unavailable [phone] Stephanie Major RN Unavailable NATHANIEL MITCHELL@[email or web address].[facility] Niyah Kim RN Unavailable niyah [email or web address] Johan Vilchis MD Unavailable [phone] Encounter Details Date Type Department Care Team (Late st Contact Info) Description 11/01/2021 Procedure Pass [facility] MR Imaging, Manuel [address] [place] [address] Social History Tobacco Use Types Packs/Day Years [...] st Contact Info) Description 05/26/2025 Procedure Pass [facility] Radiology Department [address] [place] [address] 06/23/2025 2:30 PM EDT Ancillary Procedure [facility] Radiology Department [address] [place] [address] Sandra Riley MD [address] [place] [address] Kelvin@[facility] 06/23/2025 3:30 PM EDT Blood Draw Laboratory Services, [address], 2nd [place] [address] Sandra Riley MD [address] [place] [address] Kelvin@[facility] 06/23/2025 4:00 PM EDT Office Visit Center for Neuro-Oncology, [facility] [address] [facility], 9th [place] [address] Sandra Riley MD [address] [place] [address] Kelvin@[facility] 08/11/2025 1:20 PM EST Telemedicine [facility] [address] [facility]2 [place] [address] Lynda Villafana MD [address] [place] [address], [place] [address] ABDI@[facility] 09/15/2025 9:20 AM EST Office Visit [facility] [address] 12th [place] [address] Delores Rhoades MD [address] [place] [address] [email or web address] documented as of this encounter Visit [...] documented as of this encounter Care Teams Hospice Chaplain Relationship Specialty Start Date End Date Agustin Sanchez MD PCP - General Internal Medicine 06/26/21 09/01/24 Pcp, Unknown PCP - General 09/02/24 Trnet Banks MD [email or web address] Radiation Oncology 10/02/21 Sandra Riley MD [address] [place] [address] Kelvin@[facility] Primary Oncologist Neurology 10/02/21 Jacqueline Mccallum, RN [address] [place] [address] Julian@[facility] Primary Infusion Nurse 10/19/21 Jacqueline Drummond, [facility] [address] [place] [address] [email or web address] Policy Checker Oncology 11/27/21 Bianca Cedeño, TAILING MACHINE OPERATOR [address] [address] Tanya@[facility] Internal Medicine 10/08/23 Rosa Maria Swanson PA-C [address] [place] [address] Celina@[facility] Physician Swage Toolsetter 11/04/23 Marta Fink [address] [place] [address] Audrey @[facility] Portfolio Architect 12/12/23 Ree Rasmussen RN [address] [place] [address] CHARLIE@[facility] Primary Infusion Nurse 11/02/24 Stephanie Zuniga, ROSELINE [address] [place] [address] MARYJANE@[facility] Associate Infusion Nurse 11/02/24 Niyah Kim RN [address] [place] [address] [email or web address] Associate Infusion Nurse 11/02/24 Johan Vilchis MD [address] [place] [address] Ophthalmology 04/02/25 documented as of this encounter Additional Source Comments The information contained in this document represents components of the legal health record. It is not the complete legal health record.[facility]
--- OUTSIDE RECORDS SUMMARY | 2025-06-01 18:38 | XMS_ITS | Encounter Summary ---
Author Organization [facility] Address [address] [facility] [address] [place] [address] Phone Care Team Providers Care Performance Solutions Specialist Name Role Phone Agustin Sanchez MD Primary Care Provider Trent Banks MD Unavailable [phone] Sandra Riley MD Unavailable [phone] Jacqueline Mccallum RN Unavailable Mel sears@[email or web address].[email or web address]. Jacqueline Aden HARVESTING MANAGER Unavailable [phone] Bianca Cedeño DIRECTOR OF ONCOLOGY Unavailable [phone] Rosa Maria Ervin PA-C Unavailable [phone] Marta Fink Unavailable Gregory Odonnell@[facility] Pcp, Unknown Primary Care Provider UnavailRee Eugene RN Unavailable [phone] Stephanie Major RN Unavailable NATHANIEL [email or web address].[facility] Niyah Kim RN Unavailable niyah [email or web address] Johan Vilchis MD Unavailable [phone] Encounter Details Date Type Department Care Team (Late st Contact Info) Description 12/03/2023 Procedure Pass [facility] Angio Interventional Radiology [address] [place] [address] Social History Tobacco Use Types Packs/Day Years [...] got money to buy more. Never True 11/18/2023 Within the past 6 months the food we bought just didn't last and we didn't have enough money to get more. Never True Residential Stability Answer Date Recor ded What is your housing situation today? I have saray sing 11/18/2023 How many times have you move d in the past 12 months? Zero (I did not move) 11/18/2023 Paying for Meds Answer Date Recorded Do you have trouble paying for medicines? No 11/18/2023 Paying Utility Bills Answer Date Record ed Do you have trouble paying your heating or elect ricity bill? No 11/18/2023 Transportation Answer Date Recorded Has the lack of transportati on kept you from medical appointments or from getting medications? No 11/18/2023 Digital Access Answer Date Recorded No 11/18/2023 Yes 11/18/2023 Do you have reliable internet access at home? Ye s 11/18/2023 Do you have a device (e.g., phone, tablet, computer) with a working camera? Yes 11/18/2023 Comments No Sex and Gender Information Value Date Recorded Sex Assigned at Female 06/12/2021 3:58 PM EDT Legal Sex Female 9:58 AM EDT Gender Identity Female 06/12/2021 3:58 PM EDT Sexual Orientation Straight 06/12/2021 3: 58 PM EDT documented as of this encounter Plan of Treatment Upcoming Encounters Date Type Department Care Team (Late st Contact Info) Description 05/26/2025 Procedure Pass [facility] Radiology Department [address] [place] [address] 06/23/2025 2:30 PM EDT Ancillary Procedure [facility] Radiology Department [address] [place] [address] Sandra Riley MD [address] [place] [address] Kelvin@[facility] 06/23/2025 3:30 PM EDT Blood Draw Laboratory Services, [facility] [address] [facility], 2nd [place] [address] Sandra Riley MD [address] [place] [address] Kelvin@[facility] 06/23/2025 4:00 PM EDT Office Visit Center for Neuro-Oncology, [facility] [address] [facility], 9th [place] [address] Sandra Riley MD [address] [place] [address] Kelvin@[facility] 08/11/2025 1:20 PM EST Telemedicine [facility] [address] [facility]2 [place] [address] Lynda Villafana MD [address] [place] [address], [facility] [place] [address] ABDI@[facility] 09/15/2025 9:20 AM EST Office Visit [facility] [address] [facility] [address]th [place] [address] Delores Rhoades MD [address] [place] [address] [email or web address] documented as of this encounter Visit Diagnoses Not on filedocumented in this encounter Additional Health Concerns Infection Onset Date Last Indicated Resolved Time CDiff-Risk 01/21/2024 01/21/2024 01/21/2024 10:0 4 AM EDT CDiff-Risk 01/28/2024 01/28/2024 01/29/2024 10:5 6 AM EDT CoV-Risk Comment:Per note documentation 02/01/2024 02/01/2024 6:07 AM EDT CDiff-Risk 02/07/2024 02/07/2024 02/14/2024 1:22 AM EDT documented as of this encounter Care Teams Performance Solutions Specialist Relationship Specialty Start Date End Date Agustin Sanchez MD PCP - General Internal Medicine 06/26/21 09/01/24 Pcp, Unknown PCP - General 09/02/24 Trent Banks MD [email or web address] Radiation Oncology 10/02/21 Sandra Riley MD [address] [place] [address] Kelvin@[facility] Primary Oncologist Neurology 10/02/21 Jacqueline Mccallum, RN [address] [place] [address] Julian@[facility] Primary Infusion Nurse 10/19/21 Jacqueline Drummond, [address] [address] Jorge@[facility] Youth Career Specialist Oncology 11/27/21 Bianca Cedeño, DIRECTOR OF ONCOLOGY [address] [address] Tanya@[facility] Internal Medicine 10/08/23 Rosa Maria Swanson PASpenserC [address] [place] [address] Celina@[facility] .[facility] Physician Hand Bindery Assembly Worker 11/04/23 Marta Fink [address] [place] [address] Audrey @[facility] Finisher [employer] 12/12/23 Ree Rasmussen RN [address] [place] [address] CHARLIE@[facility] Primary Infusion Nurse 11/02/24 Stephanie Zuniga, ROSELINE [address] [place] [address] MARYJANE@[facility] Associate Infusion Nurse 11/02/24 Niyah Kim, ROSELINE [address] [place] [address] [email or web address] Associate Infusion Nurse 11/02/24 Johan Vilchis MD [address] [place] [address] Ophthalmology 04/02/25 documented as of this encounter Additional Source Comments The information contained in this document represents components of the legal health record. It is not the complete legal health record.[facility]
--- OUTSIDE RECORDS SUMMARY | 2025-06-01 18:38 | XMS_ITS | Encounter Summary ---
Author Organization [facility] Address [address] [facility] [address] [place] [address] Phone Care Team Providers Care Manager Career Name Role Phone Agustin Sanchez MD Primary Care Provider Trent Banks MD Unavailable [phone] Sandra Riley MD Unavailable [phone] Jacqueline Mccallum RN Unavailable Mel [email or web address]@[email or web address].[place]. Jacqueline Aden SQUARE DANCE CALLER Unavailable [phone] Bianca Cedeño RIBBON LAP MACHINE TENDER Unavailable [phone] Rosa Maria Ervin PA-C Unavailable [phone] Marta Fink Unavailable Gregory Odonnell@[facility] Pcp, Unknown Primary Care Provider UnavailRee Eugene RN Unavailable [phone] Stephanie Major RN Unavailable NATHANIEL MITCHELL@[facility].[place].[facility] Niyah Kim RN Unavailable [email or web address] [email or web address] Johan Vilchis MD Unavailable [phone] Encounter Details Date Type Department Care Team (Late st Contact Info) Description 02/03/2024 Procedure Pass [facility] Angio Interventional Radiology [address] [place] [address] Social History Tobacco Use Types Packs/Day Years [...] st Contact Info) Description 05/26/2025 Procedure Pass [facility] Radiology Department [address] [place] [address] 06/23/2025 2:30 PM EDT Ancillary Procedure [facility] Radiology Department [address] [place] [address] Sandra Riley MD [address] [place] [address] Kelvin@[facility] 06/23/2025 3:30 PM EDT Blood Draw Laboratory Services, [facility] [address] [facility], 2nd [place] [address] Sandra Riley MD [address] [place] [address] Kelvin@[facility] 06/23/2025 4:00 PM EDT Office Visit [facility], [address], 9th [place] [address] Sandra Riley MD [address] [place] [address] Kelvin@[facility] 08/11/2025 1:20 PM EST Telemedicine [facility] Medical Specialties 45 [facility] ASB2-2 [place] [address] Lynda Villafana MD [address] [place] [address], [place] [address] ABDI@[facility] 09/15/2025 9:20 AM EST Office Visit [place] [address] [facility] 12th [place] [address] Delores Rhoades MD [address] [place] [address] [email or web address] documented as of this encounter Visit Diagnoses Not on filedocumented in this encounter Additional Health Concerns Infection Onset Date Last Indicated Resolved Time CDiff-Risk 02/07/2024 02/07/2024 02/14/2024 1:22 AM EDT documented as of this encounter Care Teams Manager Career Relationship Specialty Start Date End Date Agustin Sanchez MD PCP - General Internal Medicine 06/26/21 09/01/24 Pcp, Unknown PCP - General 09/02/24 Trent Banks MD [email or web address] Radiation Oncology 10/02/21 Sandra Riley MD [address] [place], [place] Kelvin@[email or web address] Primary Oncologist Neurology 10/02/21 Jacqueline Mccallum, RN [address] [place], [place] Julian@[facility] .[facility] Primary Infusion Nurse 10/19/21 Jacqueline Drummond, SQUARE DANCE CALLER [address] [place] [address] [email or web address]@[facility] Supervisor Process Testing Oncology 11/27/21 Bianca Cedeño, RIBBON LAP MACHINE TENDER [address] [address] Tanya@[facility] Internal Medicine 10/08/23 Rosa Maria Swanson PA-C [address] [place] [address] Celina@[facility] Physician Treatment Technician 11/04/23 Marta Fink [address] [place] [address] Audrey @[facility] Delineator 12/12/23 Ree Rasmussen RN [address] [place] [address] CHARLIE@[facility] Primary Infusion Nurse 11/02/24 Stephanie Zuniga, ROSELINE [address] [place] [address] MARYJANE@[facility] Associate Infusion Nurse 11/02/24 Niyah Kim RN [address] [place] [address] [email or web address] Associate Infusion Nurse 11/02/24 Johan Vilchis MD [address] [place] [address] Ophthalmology 04/02/25 documented as of this encounter Additional Source Comments The information contained in this document represents components of the legal health record. It is not the complete legal health record.[facility]
--- OUTSIDE RECORDS SUMMARY | 2025-06-01 18:38 | XMS_ITS | Encounter Summary ---
Author Organization [facility] Address [address] [facility] [address] [place] [address] Phone Care Team Providers Care Python Consultant Name Role Phone Agustin Sanchez MD Primary Care Provider Trent Banks MD Unavailable [phone] Sandra Riley MD Unavailable [phone] Jacqueline Mccallum RN Unavailable Mel sears@[email or web address]. Jacqueline Aden PULLEY WORKER Unavailable [phone] Bianca Cedeño ARMY MANAGER Unavailable [phone] Rosa Maria Ervin PA-C Unavailable [phone] Marta Fink Unavailable Gregory Odonnell@[facility] Pcp, Unknown Primary Care Provider UnavailRee Eugene RN Unavailable [phone] Stephanie aMjor RN Unavailable NATHANILE [email or web address] Niyah Kim RN Unavailable niyah [email or web address] Johan Vilchis MD Unavailable [phone] Encounter Details Date Type Department Care Team (Late st Contact Info) Description 06/17/2023 Procedure Pass [facility] [place] [address] [place] [address] Social History Tobacco Use Types Packs/Day Years [...] st Contact Info) Description 05/26/2025 Procedure Pass [facility] Radiology Department [address] [place] [address] 06/23/2025 2:30 PM EDT Ancillary Procedure [facility] Radiology Department [address] [place] [address] Sandra Riley MD [address] [place] [address] Kelvin@[facility] 06/23/2025 3:30 PM EDT Blood Draw Laboratory Services, [facility] [address] [facility], 2nd [place] [address] Sandra Riley MD [address] [place] [address] Kelvin@[facility] 06/23/2025 4:00 PM EDT Office Visit [facility], [facility] [address] [facility], 9th [place] [address] Sandra Riley MD [address] [place] [address] Kelvin@[facility] 08/11/2025 1:20 PM EST Telemedicine [facility] Medical Specialties 45 [facility] ASB2-2 [place] [address] Lynda Villafana MD 75 [facility], [place] [address] ABDI@[facility] 09/15/2025 9:20 AM EST Office Visit [facility] [address] [facility] 12th [place] [address] Delores Rhoades MD [address] [place] [address] hayley@[facility] documented as [...] documented as of this encounter Care Teams Python Consultant Relationship Specialty Start Date End Date Agustin Sanchez MD PCP - General Internal Medicine 06/26/21 09/01/24 Pcp, Unknown PCP - General 09/02/24 Trent aBnks MD [email or web address] Radiation Oncology 10/02/21 Sandra Riley MD [address] [place] [address] Kelvin@[facility] Primary Oncologist Neurology 10/02/21 Jacqueline Mccallum RN [address] [place] [address] Julian@[facility] Primary Infusion Nurse 10/19/21 Jacqueline Drummond, [address] [address] [email or web address]@[email or web address] Concrete Form Setter Oncology 11/27/21 Bianca Cedeño NP [address] [place] [address] Tanya@[facility] Internal Medicine 10/08/23 Rosa Maria Swanson PA-C [address] [place] [address] Celina@[facility] Physician Cooling Room Attendant 11/04/23 Marta Fink [address] [place] [address] Audrey @[facility] Application Designer 12/12/23 Ree Rasmussen RN [address] [place] [address] CHARLIE@[facility] Primary Infusion Nurse 11/02/24 Stephanie Zuniga, RN [address] [place] [address] MARYJANE@[facility] Associate Infusion Nurse 11/02/24 Niyah Kim, ROSELINE [address] [place] [address] [email or web address] Associate Infusion Nurse 11/02/24 Johan Vilchis MD [address] [place] [address] Ophthalmology 04/02/25 documented as of this encounter Additional Source Comments The information contained in this document represents components of the legal health record. It is not the complete legal health record.[facility]
--- OUTSIDE RECORDS SUMMARY | 2025-06-01 18:38 | XMS_ITS | Encounter Summary ---
Author Organization [facility] Address [address] [address] Phone Care Team Providers Care Manufacturing Tech Name Role Phone Unknown, Unknown Primary Care Provider Agustin Coates MD Primary Care Provider Trent Banks MD Unavailable [phone] Sandra Riley MD Unavailable [phone] Jacqueline Mccallum RN Unavailable Mel sears@[email or web address].[place]. Jacqueline Aden PLANNING ASSOCIATE Unavailable [phone] Bianca Cedeño FIELD ACCOUNT DIRECTOR Unavailable [phone] Rosa Maria Swanson PA-C Unavailable [phone] Marta Fink Unavailable Gregory Odonnell@[facility] Pcp, Unknown Primary Care Provider UnavailRee Eugene RN Unavailable [phone] Stephanie Major RN Unavailable NATHANIEL MITCHELL@[facility].[place].[facility] Niyah Kim RN Unavailable niyah [email or web address].[email or web address].[facility] Johan Vilchis MD Unavailable [phone] Encounter Details Date Type Department Care Team (Late st Contact Info) Description 06/14/2021 Procedure Pass [facility] [place], MRI [address] [facility] 4th [place] [address] Social History Tobacco Use Types [...] st Contact Info) Description 05/26/2025 Procedure Pass [facility] Radiology Department [address] [place] [address] 06/23/2025 2:30 PM EDT Ancillary Procedure [facility] Radiology Department [address] [place] [address] Sandra Riley MD [address] [place] [address] Kelvin@[facility] 06/23/2025 3:30 PM EDT Blood Draw Laboratory Services, [facility] [address] [facility], 2nd [place] [address] Sandra Riley MD [address] [place] [address] Kelvin@[facility] 06/23/2025 4:00 PM EDT Office Visit [facility] Neuro[facility], [facility] [address] [facility], 9th [place] [address] Sandra Riley MD [address] [place] [address] Kelvin@[facility] 08/11/2025 1:20 PM EST Telemedicine [facility] 45 [facility]2 [place] [address] Lynda Villafana MD [address] [place] [address], [place] [address] ABDI@[email or web address] 09/15/2025 9:20 AM EST Office Visit [facility] [address] 12th [place] [address] Delores Rhoades MD [address] [place] [address] [email or web address] documented as of this encounter Visit [...] documented as of this encounter Care Teams Manufacturing Tech Relationship Specialty Start Date End Date Unknown, Unknown, MD PCP - General 05/24/21 06/25/21 Agustin Sanchez MD PCP - General Internal Medicine 06/26/21 09/01/24 Pcp, Unknown PCP - General 09/02/24 Trent Banks MD [email or web address] Radiation Oncology 10/02/21 Sandra Riley MD [address] [place] [address] Kelvin@[facility] Primary Oncologist Neurology 10/02/21 Jacqueline Mccallum RN [address] [place] [address] Julian@[facility] Primary Infusion Nurse 10/19/21 Jacqueline Drummond, [facility] [address] [place] [address] Joreg@[facility] Linux Vmware Administrator Oncology 11/27/21 Bianca Cedeño NP [address] [place] [address] Tanya@[facility] Internal Medicine 10/08/23 Rosa Maria Swanson PA-C [address] [place] [address] Celina@[facility] Physician Boom Truck Driver 11/04/23 Marta Fink [address] [place] [address] Audrey @[facility] Field Support Specialist 12/12/23 Ree Rasmussen RN [address] [place] [address] CHARLIE@[facility] Primary Infusion Nurse 11/02/24 Stephanie Zuniga, ROSELINE [address] [place] [address] MARYJANE@[facility] Associate Infusion Nurse 11/02/24 Niyah Kim, ROSELINE [address] [place] [address] [email or web address] Associate Infusion Nurse 11/02/24 Johan Vilchis MD [address] [place] [address] Ophthalmology 04/02/25 documented as of this encounter Additional Source Comments The information contained in this document represents components of the legal health record. It is not the complete legal health record.[facility]
--- OUTSIDE RECORDS SUMMARY | 2025-06-01 18:38 | XMS_ITS | Encounter Summary ---
Author Organization [facility] Address [address] [address] Phone Care Team Providers Care Field Underwriter Name Role Phone Unknown, Unknown Primary Care Provider Agustin Coates MD Primary Care Provider Trent Banks MD Unavailable [phone] Sandra Riley MD Unavailable [phone] Jacqueline Mccallum RN Unavailable Mel sears@[facility].[place]. Jacqueline Aden RENEWALS MANAGER Unavailable [phone] Bianca Cedeño CURVE SAW OPERATOR Unavailable [phone] Rosa Maria Swanson PA-C Unavailable [phone] Marta Fink Unavailable Gregory Odonnell@[facility] Pcp, Unknown Primary Care Provider UnavailRee Eugene RN Unavailable [phone] Stephanie Major RN Unavailable NATHANIEL MITCEHLL@[facility].[facility] Niyah Kim RN Unavailable niyah [email or web address].[place].[facility] Johan Vilchis MD Unavailable [phone] Encounter Details Date Type Department Care Team (Late st Contact Info) Description 06/14/2021 Procedure Pass [facility] [place] [address] [facility] 3rd [place] [address] Social History Tobacco Use Types [...] st Contact Info) Description 05/26/2025 Procedure Pass [facility] Radiology Department [address] [place] [address] 06/23/2025 2:30 PM EDT Ancillary Procedure [facility] Radiology Department [address] [place] [address] Sandra Riley MD [address] [place] [address] Kelvin@[facility] 06/23/2025 3:30 PM EDT Blood Draw Laboratory Services, [facility] [address] [facility], 2nd [place] [address] Sandra Riley MD [address] [place] [address] Kelvin@[facility] 06/23/2025 4:00 PM EDT Office Visit [facility], [facility] [address] [facility], 9th [place] [address] Sandra Riley MD [address] [place] [address] Kelvin@[facility] 08/11/2025 1:20 PM EST Telemedicine [facility] 45 [facility]2 [place] [address] Lynda Villafana MD [address] [place] [address], [place] [address] ABDI@[facility] 09/15/2025 9:20 AM EST Office Visit [facility] [address] 12th [place] [address] Delores Rhoades MD [address] [place] [address] [email or web address] documented as of this encounter [...] documented as of this encounter Care Teams Field Underwriter Relationship Specialty Start Date End Date Unknown, Unknown, MD PCP - General 05/24/21 06/25/21 Agustin Sanchez MD PCP - General Internal Medicine 06/26/21 09/01/24 Pcp, Unknown PCP - General 09/02/24 Trent Banks MD [email or web address] Radiation Oncology 10/02/21 Sandra Riley MD [address] [place] [address] Kelvin@[facility] Primary Oncologist Neurology 10/02/21 Jacqueline Mccallum RN [address] [place] [address] Julian@[facility] Primary Infusion Nurse 10/19/21 Jacqueline Drummond, [facility] [address] [place] [address] Jorge@[facility] System Operator Oncology 11/27/21 Bianca Cedeño NP [address] [place] [address] Tanya@[facility] Internal Medicine 10/08/23 Rosa Maria Swanson PA-C [address] [place] [address] Celina@[facility] Physician Electrologist 11/04/23 Marta Fink [address] [place] [address] Audrey @[facility] Public School Teacher 12/12/23 Ree Rasmussen RN [address] [place] [address] CHARLIE@[facility] Primary Infusion Nurse 11/02/24 Stephanie Zuniga, ROSELINE [address] [place] [address] MARYJANE@[facility] Associate Infusion Nurse 11/02/24 Niyah Kim, ROSELINE [address] [place] [address] [email or web address] Associate Infusion Nurse 11/02/24 Johan Vilchis MD [address] [place] [address] Ophthalmology 04/02/25 documented as of this encounter Additional Source Comments The information contained in this document represents components of the legal health record. It is not the complete legal health record.[facility]
--- OUTSIDE RECORDS SUMMARY | 2025-06-01 18:39 | XMS_ITS | Encounter Summary ---
Author Organization [employer] Address 75 [facility] 7t [place] [address] Care Team Providers Care Biochemist Name Role Phone Elmer Barros PA-C Primary Care Provider [phone] Margareth Avalos DO Primary Care Provider [phone] Elmer Barros PA-C Unavailable [phone] Encounter Details Date Type Department Care Team (Late st Contact Info) Description 11/09/[address] [phone] Elmer Barros PA-C [address] [place] [address] [id number] Social History Tobacco Use Types Packs/Day Years Used Date Smoking Tobacco: Former Cigarettes 1 30.9 S tarted: 07/02/1994 Smokeless Tobacco: Never Alcohol Use Standard Drinks/Week Comments Not Currently [...] the past 12 months, has t he electric, gas, oil or water company threatened to [...] on file documented as of this encounter Miscellaneous Notes * Telephone Encounter - Carlie Heath - 11/09/2024 8:30 AM EDT Sweetie wants her to have some labs done and then gone over with her. Please advise once ordered. [phone] documented in this encounter Plan of Treatment Not on file documented as of this encounter Visit Diagnoses Not on filedocumented in this encounter Care Teams Biochemist Relationship Specialty Start Date End Date Elmer Barros PA-C [address] [place] [address] PCP - General Family Medicine 07/02/24 12/02/24 Margareth Avalos DO [address] [place] [address] PCP - General Family Medicine 12/03/24 Elmer Barros PA-C [address] [place] [address] Family Medicine 12/03/24 documented as of this encounter
--- OUTSIDE RECORDS SUMMARY | 2025-06-01 18:39 | XMS_ITS | Clinical Summary ---
Author Organization [employer] Address [address] [facility] [address] [place] [address] Care Team Providers Care Core Layer Machine Operator Name Role Phone Margareth Avalos DO Primary Care Provider Elmer Barros PA-C Unavailable [phone] Allergies Active Allergy Reactions Criticality Noted Date Comments Fish Allergy 07/02/2024 States cod fish Fish Allergy Anxiety Low 12/03/2024 Catfish Metoclopramide 12/03/2024 Medications sodium bicarbonate 650 MG tablet TAKE 5 TABLETS (3,250 MG TOTAL) BY MOUTH 4 (FOUR) TIMES A DAY. Active magnesium 30 MG tablet Take 30 mg by mouth 2 times daily. Active folic acid (Folvite) 1 MG tablet Take by mouth Once per day. Active buPROPion SR (Wellbutrin SR) 150 MG 12 hr tablet Take by mouth 2 times daily. Do not crush, chew, or split. Active acyclovir (Zovirax) 200 MG capsule Take by mouth. Activ e rivaroxaban (Xarelto) 20 MG tablet Take 1 tablet by mouth Once per day. 1 Active psyllium (Metamucil Smooth Texture) 58.6 % powderIndication s:Tobacco dependence in remission Take 5.12 g (3 g of fiber) by mouth 2 times daily. 283 g 11 4 07/02/20 25 Active polycarbophil (Fibercon) 625 MG tablet Take 1 tablet (625 mg) by mouth Once per day. 90 tablet 3 5 12/04/19 26 Active docusate sodium (Colace) 100 MG capsule Take 1 capsule (100 mg) by mouth Once per day. 90 capsule 3 5 12/04/19 26 Active hydrocortisone (Proctosol HC) 2.5 % rectal cream Insert into the rectum if needed in the morning and at bedtime for hemorrhoids. 28 g 2 5 Active witch blaine-glycerin (Tucks) pad Apply topically if needed for irritation or hemorrhoids. 100 each 2 5 Active fluticasone (Flonase) 50 MCG/ACT nasal sprayIndications :Nasal congestion Administer 1 spray into each nostril 2 times daily. Shake gently. Before first use, prime pump. After use, clean tip and replace cap. 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 Completed YEIMY History of DVT (deep vein thrombosis) 07/02/2024 Assessment & Plan (07/02/2024 1:02 PM EST): Currently managed on daily Xarelto. Tobacco dependence in remission 07/02/2024 Chronic constipation 07/02/2024 Assessment & Plan (07/02/2024 1:02 PM EST): For hemorrhoids and constipation, discussed in detail lifestyle modifications including dietary changes, regular physical activity, and adding fiber supplementation. - Will start metamucil - Can consider starting osmotic laxative if refractory despite metamucil. BMI 22.0-22.9, adult 07/02/2024 Hemorrhoids 07/02/2024 Mood disorder 05/18/2022 Anemia 05/17/2022 History of pulmonary embolus (PE) 12/05/2020 Chronic gastroesophageal reflux disease 03/30/20 20 Resolved Problems Problem Noted Date Diagnosed Date Resolved Date Dyspareunia, female 07/02/2024 01/23/20 Assessment & Plan (07/02/2024 1:00 PM EST): - Reports increased pain during intercourse for past couple of months. She has tried almond oil for lubrication and a vaginal moisturizer, but these have not alleviated the pain. She also reports vaginal dryness but no itching, discharge, or bleeding. She saw a composite mechanic 15 days ago who prescribed prasterone, but she has not been able to afford it. She has not tried Kegel exercises or a low dose vaginal estrogen cream. Per her discussion with Geriatric Psychiatrist, avoided vaginal estrogen due to NHL. - Discussion about the potential use of a GoodRx code to lower the cost of the prescribed medication. - Will also provide education on Kegel exercises to strengthen the pelvic floor. She is advised to continue using almond oil and daily vaginal moisturizer. Encounters Date Type Department Care Team Description 05/31/2025 5:40 PM EDT Office Visit [facility] [address] [place] [address] Cough in adult; Nasal congestion; Difficulty breathing from Last 3 Months Immunizations Immunization Administration Dates Next Due DTaP, 5 pertussis antigens 01/06/2025,10/28/2024 Hep A / Hep B 01/06/2025 Hib (PRP-T) 01/06/2025,10/28/2024 IPV 01/06/2025,10/28/2024 Influenza injectable quadrivalent preservative f ree 05/20/2022 Influenza, seasonal, injectable, preservative fr ee 07/02/2024 Meningococcal MCV4O 01/06/2025 Zoster, Recombinant 01/06/2025,10/28/2024 Family History Medical History Relation Name Comments Hypertension Father Diabetes Maternal Grandmother Hyperlipidemia Maternal Grandmother Breast cancer Mother Hyperlipidemia Mother Relation Name Status Comments Father Maternal Grandmother Mother Social [...] Mass Index 24.98 05/31/2025 5:41 PM EDT Plan of Treatment Health Maintenance Due Date Last Done Comments CT Colonography 1975 Colonoscopy 1975 FIT 1975 Sigmoidoscopy 1975 Disability Screening 1975 COVID-19 Vaccine (#1) 1980 Alcohol/Substance Use Screening 1987 Family Planning (PISQ) 1990 Pneumococcal Vaccine: Pediatrics (0 to 5 Years) and At-Risk Patients (6 to 49) Years (1 of 2 - PCV) 1994 Pap Smear 1996 Cervical Cancer Screening 2005 HPV/Cotest 2005 Influenza Vaccine (#1) 2025 , 05/20/2022 Depression Screening 07/02/2025 07/02/2024, 07/02/2024 SDOH Screening 07/02/2025 07/02/2024 Hepatitis B Vaccines (3 of 3 - 19+ 3-dose series) 07/09/2025 03/17/2025, 01/06/2025 IPV Vaccines (3 of 3 - Adult catch-up series) 07/09/2025 01/06/2025, 10/28/2024 FOBT 07/20/2025 07/20/2024 Tobacco Screening 05/31/2026 05/31/2025 Mammogram 07/20/2026 07/20/2024 Colorectal Cancer Screening 07/20/2027 FIT DNA/Cologuard 07/20/2027 07/20/2024 Lipid Panel 07/07/2029 07/07/2024 DTaP/Tdap/Td Vaccines (3 - Tdap) 01/06/2035 01/06/2025, 10/28/2024 RSV Patients and Patients Aged 60 years or older (1 - 1-dose 75+ series) 2050 HIV Screening Completed 07/07/2024 Hepatitis C Screening Completed 07/07/2024 HIB Vaccines Aged Out 01/06/2025, 10/28/2024 No longer eligible based on patient's age to complete this topic Hepatitis A Vaccines Aged Out 01/06/2025 No long er eligible based on patient's age to complete this topic Zoster Vaccines Completed 01/06/2025, 10/28/2024 Meningococcal Vaccine Aged Out 03/17/2025 , 01/06/2025 No longer eligible based on patient's age to complete this topic HPV Vaccines Aged Out No longer eligi ble based on patient's age to complete this topic Meningococcal B Vaccine Aged Out No l onger eligible based on patient's age to complete this topic RSV under 20 months Aged Out No longe r eligible based on patient's age to complete this topic Rotavirus Vaccines Aged Out No longer eligible based [...] Cough in adult Nasal congestion Difficulty breathing LAB COLOGUARD COLON CANCER SCREEN Routine 07/20/2024 4:32 PM EST Screening for colon cancer BI MAMMOGRAM SCREENING TOMOSYNTHESIS BILATERAL Routine 07/20/2024 3:22 PM EST HEPATITIS C AB W/REFLEX TO HCV QUANT NAAT IF POSITIVE Routine 07/07/2024 12:26 PM EST HIV P24 ANTIGEN/ANTIBODY WITH REFLEX TO CONFIRMATION Routine 07/07/2024 12:26 PM EST LIPID PANEL WITH LDL:HDL RATIO Routine 07/07/2024 12:26 PM EST from Last 3 Months or Most Recently Relevant to Health Maintenance Results * XR Chest 2 Views (06/01/2025 3:58 PM EDT) Anatomical Region Laterality Modality Chest Radiographic Jolie ging 06/01/2025 3:58 PM EDT Narrative 06/01/2025 4:09 PM EDT [address] [address] XRay Report Signed Patient: Suzie Brooks MR#: [id number] : 1975 Acct:[id number] Age/Sex: 49 / F ADM Date: 06/01/25 Loc: HO.HHCX Attending Dr: Ade Rose Ordering Physician: Ade Rose Date of Service: 06/01/25 Procedure(s): XR chest 2V Accession Number(s): [id number] cc: Ade Rose Reason for Exam: dyspnea [...] Vince Burciaga MD 06/01/2025 04:06 PM EDT Dictated By: Vince Burciaga MD Signed By: <Electronically signed by Vince Burciaga MD in OV> 06/01/25 1606 DD/ 1558 TD/TT: 06/01/25 1604 Worship Pastor: Procedure Note Donotuseinterpreter, Image - 06/01/2025 [facility] [address] [place] [address] XRay Report Signed Patient: Ricco Brooks#: [id number] : 1975Acct:[id number] Age/Sex: 49 / FADM Date: 06/01/25 Loc: .HHCX Attending Dr: Ade Rose Ordering Physician: Ade Rose Date of Service: 06/01/25 Procedure(s): XR chest 2V Accession Number(s): [id number] cc: Ade Rose Reason for Exam: dyspnea [...] Vince Burciaga MD 06/01/2025 04:06 PM EDT Dictated By: Vince Burciaga MD Signed By: <Electronically signed by Vince Burciaga MD in OV> 06/01/25 1606 DD/ 1558 TD/TT: 06/01/25 1604 Worship Pastor: us Ade Rose NP IMG XR PROCEDURES Final Result * POCT Rapid Influenza B CHAND ID NOW (05/31/2025 6:09 PM EDT) Influenza B Negative Negative, Indeterminate [facility] QC Media Lot # [id number] [facility] Lot# Expiration Date ,026 [facility] Swab 05/31/2025 6:09 PM EDT us Ade Rose NP POINT OF CARE TEST ENTER/EDIT O RDERABLES Final Result [facility] [address] [place] [address] [phone] * POCT Rapid Influenza A CHAND ID NOW (05/31/2025 6:08 PM EDT) Pathologist [facility] Influenza A Negative Negative, Indeterminate [facility] QC Media Lot # [id number] [facility] Lot# Expiration Date ,[id number] [facility] Swab 05/31/2025 6:08 PM EDT [facility] VP CUSTOMER DEVELOPMENT POINT OF CARE TEST ENTER/EDIT O RDERABLES Final Result [facility] [address] [place] [phone] * POCT Rapid Covid-19 CHAND ID NOW (05/31/2025 6:08 PM EDT) [facility] Coronavirus Antigen PCR Negative Negative, Indeterminate, None Detected, Invalid, Specimen unsatisfactory for evaluation, Weakly Positive, 2+ QC Media Lot # [id number] Lot# Expiration Date [id number] Swab 05/31/2025 6:08 PM EDT Ade [facility] VP CUSTOMER DEVELOPMENT POINT OF CARE TEST ENTER/EDIT O RDERABLES Final Result * Cologuard?? colon cancer screening (07/20/2024 4:32 PM EST) [facility] Cologuard Result Negative Negative 07/27/20 12:22 AM EST [facility] (CLIA #:[id number]) Comment: NEGATIVE TEST RESULT. A negative Cologuard result indicates a low likelihood that a colorectal cancer (CRC) or advanced adenoma (adenomatous polyps with more advanced pre-malignant features) is present. The chance that a person with a negative Cologuard test has a colorectal cancer is less than 1 in 1500 (negative predictive value >99.9%) or has an advanced adenoma is less than 5.3% (negative predictive value 94.7%). These data are based on a prospective cross-sectional study of 10,000 individuals at average risk for colorectal cancer who were screened with both Cologuard and colonoscopy. (Tarun Khalil al, N Engl J Med 2014;370(14):5619-6405) The normal value (reference range) for this assay is negative. COLOGUARD RE-SCREENING RECOMMENDATION: Periodic colorectal cancer screening is an important part of preventive healthcare for asymptomatic individuals at average risk for colorectal cancer. Following a negative Cologuard result, the [place] [employer] Society and U.S. Multi-Society Task Force screening guidelines recommend a Cologuard re-screening interval of 3 years. References: [place] [employer] Guideline for Colorectal Cancer Screening: https://www.cancer.org/cancer/ofsmh-dtjfes-lpbqal/nzilrrevq-cqagkgkki-pmqyxvy/ac s-rec ommendations.html.; Jimmy DK, Denny CARNEY, Efra StoddardK, Colorectal Cancer Screening: Recommendations for Physicians and Patients from the U.S. Multi-Society Task Force on Colorectal Cancer Screening , Am J Gastroenterology 2017; 112:2575-1817. TEST DESCRIPTION: Composite algorithmic analysis of stool DNA-biomarkers with hemoglobin immunoassay. Quantitative values of individual biomarkers are not reportable and are not associated with individual biomarker result reference ranges. Cologuard is intended for colorectal cancer screening of adults of either sex, 45 years or older, who are at average-risk for colorectal cancer (CRC). Cologuard has been approved for use by the U.S. FDA. The performance of Cologuard was established in a cross sectional study of average-risk adults aged 50-84. Cologuard performance in patients ages 45 to 49 years was estimated by sub-group analysis of near-age groups. Colonoscopies performed for a positive result may find as the most clinically significant lesion: colorectal cancer [4.0%], advanced adenoma (including sessile serrated polyps greater than or equal to 1cm diameter) [20%] or non- advanced adenoma [31%]; or no colorectal neoplasia [45%]. These estimates are derived from a prospective cross-sectional screening study of 10,000 individuals at average risk for colorectal cancer who were screened with both Cologuard and colonoscopy. (Tarun Berger, N Engl J Med 2014;370(14):3971-2751.) Cologuard may produce a false negative or false positive result (no colorectal cancer or precancerous polyp present at colonoscopy follow up). A negative Cologuard test result does not guarantee the absence of CRC or advanced adenoma (pre-cancer). The current Cologuard screening interval is every 3 years. ([place] [employer] Society and U.S. Multi-Society Task Force). Cologuard performance data in a 10,000 patient pivotal study using colonoscopy as the reference method can be accessed at the following location: www.[employer]y/results. Additional description of the Cologuard test process, warnings and precautions can be found at www.cologuard.com. Stool specimen (specimen) 07/20/2024 4:32 PM EST 07/21/2024 11:24 AM EST Elmer Barros PA-C LAB MOLECULAR DIAGNOSTICS FAHEEM GALE Final Result [facility] (CLIA #:[id number]) [address] [place] [address], * BI Mammogram Screening Tomosynthesis Bilateral (07/20/2024 3:22 PM EST) Anatomical Region Laterality Modality Breast Bilateral Mammography 07/20/2024 3:22 PM EST Narrative 07/21/2024 11:18 AM EST PROCEDURE: MM Digital Mammo Screening INDICATION: Screening for breast cancer. No known palpable abnormalities. History of B-cell lymphoma. COMPARISON: 07/04/2020, no other priors on record at the time of interpretation. TECHNIQUE:Full-field digital CC and MLO 3D tomosynthesis images of both breasts were acquired. Computer-aided detection (CAD) was utilized in the interpretation of this study. DENSITY: There are scattered areas of fibroglandular density. FINDINGS: No suspicious masses, microcalcifications, areas of architectural distortion, or skin thickening to suggest malignancy. IMPRESSION: No mammographic evidence of malignancy. RECOMMENDATION: Annual mammographic screening. BI-RADS: 1 (Negative) Lay letter mailed to patient WSN: [id number] Ordering Physician: Elmer Barros Dictated By: Tulio Dunham MD Dictated Date/Time: 07/21/24 11:15 am Reviewed By: Tulio Dunham MD Signed By: Tulio Dunham MD Signed Date/Time: 07/21/24 11:15 am Transcribed By: NOLAN Director [employer] Date/Time: 07/21/24 11:11 am Birads: Procedure Note Donotuseinterpreter, Image - 07/21/2024 PROCEDURE: MM Digital Mammo Screening INDICATION: Screening for breast cancer. No known palpableabnormalities. History of B-cell lymphoma. COMPARISON: 07/04/2020, no other priors on record at the time ofinterpretation. TECHNIQUE:Full-field digital CC and MLO 3D tomosynthesis images of bothbreasts were acquired. Computer-aided detection (CAD) was utilized in theinterpretation of this study. DENSITY: There are scattered areas of fibroglandular density. FINDINGS: No suspicious masses, microcalcifications, areas ofarchitectural distortion, or skin thickening to suggest malignancy. IMPRESSION: No mammographic evidence of malignancy. RECOMMENDATION: Annual mammographic screening. BI-RADS: 1 (Negative) Lay letter mailed to patient WSN: [id number] Ordering Physician: Elmer Barros Dictated By: Tulio Dunham MD Dictated Date/Time: 07/21/24 11:15 am Reviewed By: Tulio Dunham MD Signed By: Tulio Dunham MD Signed Date/Time: 07/21/24 11:15 am Transcribed By: NOLAN Director Correctional Agency Date/Time: 07/21/24 11:11 am Birads: Elmer Barros PA-C IMG BI PROCEDURES Final Result * (ABNORMAL) Lipid Panel With LDL:HDL Ratio (07/07/2024 12:26 PM EST) Cholesterol, Total 232(H) 100 - 199 mg/dL [facility] Triglycerides 139 0 - 149 mg/dL [facility] HDL Cholesterol 68 >39 mg/dL [facility] VLDL Cholesterol Chirag 24 5 - 40 mg/dL [facility] 1 LDL Chol Calc (NIH) 140(H) 0 - 99 mg/dL [facility] 1 LDL/HDL Ratio 2.1 0.0 - 3.2 ratio [facility] Comment: LDL/HDL Ratio Men Women 1/2 Avg.Risk 1.0 1.5 Avg.Risk 3.6 3.2 2X Avg.Risk 6.2 5.0 3X Avg.Risk 8.0 6.1 07/07/2024 12:2 6 PM EST 07/07/2024 Narrative [facility] 1 - 07/08/2024 8:08 AM EST Performed at: - [facility] [id number] Bed Bug Exterminator: Lizy Jefferson MD, Phone: [phone] [facility] [employer] PA-C LAB BLOOD ORDERABLES Final Res ult Performing Organization Address City/[facility]/ZIP Co de Phone Number [facility] * Hepatitis C Ab w/Reflex to HCV Quant NAAT if Positive (07/07/2024 12:26 PM EST) Pathologist [facility] HCV Ab Non Reactive Non Reactive [facility] 1 07/07/2024 12:2 6 PM EST 07/07/2024 Narrative [facility] 1 - 07/08/2024 12:05 PM EST Performed at: [facility] [address], [address], [place], [place] [id number] Bed Bug Exterminator: Jeffrey Oliver MD, Phone: [phone] [facility] PA-C LAB BLOOD ORDERABLES Final Res ult [facility] * HIV p24 Antigen/Antibody With Reflex to Confirmation (07/07/2024 12:26 PM EST) HIV Ab/p24 Ag Screen Non Reactive Non Reactive [facility] 2 Comment: HIV-1/HIV-2 antibodies and HIV-1 p24 antigen were NOT detected. There is no laboratory evidence of HIV infection. HIV Negative 07/07/2024 12:2 6 PM EST 07/07/2024 Narrative [facility] 2 - 07/08/2024 10:06 AM EST Performed at: 02 - [facility] [address], [address], [place], [place] [id number] Bed Bug Exterminator: Jeffrey Oliver MD, Phone: [phone] Elmer Barros PA-C LAB BLOOD ORDERABLES Final Res ult [facility] 2 from Last 3 Months or Most Recently Relevant to Health Maintenance Insurance [employer] Member Subscriber Plan / Payer (Ef fective 2024-Present) Name:Suzie Brooks Relation to Subscriber:Self Name:Suzie Brooks Payer ID:Not on file Group ID:Not on file Type:Medicaid Address: [place] [id number] [facility] FULL [employer] LIMITED N FULL [facility] LIMITED N FULL Care Teams Core Layer Machine Operator Relationship Specialty Start Date End Date Margareth Avalos DO [address] [place] [phone] PCP - General Family Medicine 12/03/24 Elmer Barros PA-C [address] [place] [phone] Family Medicine 12/03/24
--- OUTSIDE RECORDS SUMMARY | 2025-06-01 18:39 | XMS_ITS | Encounter Summary ---
Author Organization [facility] Address [address] [facility] [address] [place] [phone] Phone Care Team Providers Care Department Traffic Freight Router Name Role Phone Agustin Sanchez MD Primary Care Provider Trent Banks MD Unavailable [phone] Sandra Riley MD Unavailable [phone] Jacqueline Mccallum RN Unavailable [email or web address] Jacqueline Aden DATA LEAD Unavailable [phone] Bianca Cedeño DIRECTOR AUTO Unavailable [phone] Rosa Maria Ervin PA-C Unavailable [phone] Marta Fink Unavailable Gregory [email or web address] Pcp, Unknown Primary Care Provider UnavailRee Eugene RN Unavailable [phone] Stephanie Major RN Unavailable [email or web address] Niyah Kim RN Unavailable [email or web address] Jhoan Vilchis MD Unavailable [phone] Encounter Details Date Type Department Care Team (Late st Contact Info) Description 08/03/2024 Procedure Pass [facility] and Women's Thread Reeler [place] [address] [place] [address] Social History Tobacco Use Types Packs/Day Years [...] st Contact Info) Description 05/26/2025 Procedure Pass [facility] Radiology Department [address] [place] [address] 06/23/2025 2:30 PM EDT Ancillary Procedure [facility] Radiology Department [address] [place] [address] Sandra Riley MD [address] [place] [phone] [email or web address] 06/23/2025 3:30 PM EDT Blood Draw Laboratory Services, [facility] [address] [facility], 2nd [place] [address] Sandra Riley MD [address] [place] [phone] [email or web address] 06/23/2025 4:00 PM EDT Office Visit [facility], [facility] [address] [facility], 9th [place] [address] aSndra Riley MD [address] [place] [address] [email or web address] 08/11/2025 1:20 PM EST Telemedicine [facility] Medical Specialties [address] [facility] [place] [address] Lynda Villafana MD [address] [place] [address], [place] [address] [email or web address] 09/15/2025 9:20 AM EST Office Visit [facility] [address] [place] [address] Delores Rhoades MD [address] [place] [address] [email or web address] documented as of this encounter Visit Diagnoses Not on filedocumented in this encounter Care Teams Department Traffic Freight Router Relationship Specialty Start Date End Date Agustin Sanchez MD PCP - General Internal Medicine 06/26/21 09/01/24 Pcp, Unknown PCP - General 09/02/24 Trent Banks MD [email or web address] Radiation Oncology 10/02/21 Sandra Riley MD [address] [place] [id number] [email or web address] Primary Oncologist Neurology 10/02/21 Jacqueline Mccallum, RN [address] [place], [place] [email or web address] Primary Infusion Nurse 10/19/21 Jacqueline Drummond, DATA LEAD [address] [place] [address] [email or web address] Acting Professor Oncology 11/27/21 Bianca Cedeño, DIRECTOR AUTO [address] [address] [email or web address] Internal Medicine 10/08/23 Rosa Maria Swanson PASpenserC [address] [place] [phone] [email or web address] .[email or web address] Physician Academic Guidance Specialist 11/04/23 Marta Fink [address] [place] [address] Audrey @[email or web address] Cement Block Maker 12/12/23 Ree Rasmussen RN [address] [place] [phone] [email or web address] Primary Infusion Nurse 11/02/24 Stephanie Zuniga, ROSELINE [address] [place] [phone] [email or web address] Associate Infusion Nurse 11/02/24 Niyah Kim, ROSELINE [address] [place] [phone] [email or web address] Associate Infusion Nurse 11/02/24 Johan Vilchis MD [address] [place] [address] Ophthalmology 04/02/25 documented as of this encounter Additional Source Comments The information contained in this document represents components of the legal health record. It is not the complete legal health record.[facility]
--- OUTSIDE RECORDS SUMMARY | 2025-06-01 18:39 | XMS_ITS | Encounter Summary ---
Author Organization [facility] Address [address] [place] [address] Phone Care Team Providers Care Meat Grading Machine Operator Name Role Phone Agustin Sanchez MD Primary Care Provider Trent Banks MD Unavailable [phone] Sandra Riley MD Unavailable [phone] Jacqueline Mccallum RN Unavailable Mel sears@[facility].[place]. Jacqueline Aden LINING STAMPER Unavailable [phone] Bianca Cedeño ESTIMATOR JEWELRY Unavailable [phone] Rosa Maria Ervin PA-C Unavailable [phone] Marta Fink Unavailable Gregory Odonnell@[facility] Pcp, Unknown Primary Care Provider UnavailRee Eugene RN Unavailable [phone] Stephanie Major RN Unavailable NATHANIEL MITCHELL@[facility].[place].[facility] Niyah Kim RN Unavailable niyah [email or web address] Johan Vilchis MD Unavailable [phone] Encounter Details Date Type Department Care Team (Late st Contact Info) Description 09/19/2021 Procedure Pass [facility], Manuel [address] [place] [address] Social History Tobacco Use Types Packs/Day Years [...] st Contact Info) Description 05/26/2025 Procedure Pass [facility] Radiology Department [address] [place] [address] 06/23/2025 2:30 PM EDT Ancillary Procedure [facility] Radiology Department [address] [place] [address] Sandra Riley MD [address] [place] [address] Kelvin@[facility] 06/23/2025 3:30 PM EDT Blood Draw Laboratory Services, [address], 2nd [place] [address] Sandra Riley MD [address] [place] [address] Kelvin@[facility] 06/23/2025 4:00 PM EDT Office Visit [facility], [facility] [address] [facility], 9th [place] [address] Sandra Riley MD [address] [place] [address] Kelvin@[facility] 08/11/2025 1:20 PM EST Telemedicine [facility] [address] [facility]2 [place] [address] Lynda Villafana MD [address] [place] [address], [place] [address] ABDI@[facility] 09/15/2025 9:20 AM EST Office Visit [facility] [address] 12th [place] [address] Delores Rhoades MD [address] [place] [address] [email or web address] documented as of this encounter Visit [...] documented as of this encounter Care Teams Meat Grading Machine Operator Relationship Specialty Start Date End Date Agustin Sanchez MD PCP - General Internal Medicine 06/26/21 09/01/24 Pcp, Unknown PCP - General 09/02/24 Trent Banks MD [email or web address] Radiation Oncology 10/02/21 Sandra Riley MD [address] [place] [address] Kelvin@[facility] Primary Oncologist Neurology 10/02/21 Jacqueline Mccallum, RN [address] [place] [address] Julian@[facility] Primary Infusion Nurse 10/19/21 Jacqueline Drummond, [facility] [address] [place] [address] Jorge@[facility] [address] Glassware Replacer Oncology 11/27/21 Bianca Cedeño, ESTIMATOR JEWELRY [address] [address] Tanya@[facility] Internal Medicine 10/08/23 Rosa Maria Swanson PA-C [address] [place] [address] Celina@[facility] Physician Clinical Resource Nurse 11/04/23 Marta Fink [address] [place] [address] Audrey @[facility] Outside Salesperson 12/12/23 Ree Rasmussen RN [address] [place] [address] CHARLIE@[facility] Primary Infusion Nurse 11/02/24 Stephanie Zuniga, ROSELINE [address] [place] [address] MARYJANE@[facility] Associate Infusion Nurse 11/02/24 Niyah Kim RN [address] [place] [address] [email or web address]@[facility] Associate Infusion Nurse 11/02/24 Johan Vilchis MD [address] [place] [address] Ophthalmology 04/02/25 documented as of this encounter Additional Source Comments The information contained in this document represents components of the legal health record. It is not the complete legal health record.[facility]
--- OUTSIDE RECORDS SUMMARY | 2025-06-01 18:39 | XMS_ITS | Encounter Summary ---
Author Organization [facility] Address [address] [facility] [address] [place] [address] Phone Care Team Providers Care Inside Sales Executive Name Role Phone Trent Banks MD Unavailable [phone] Sandra Riley MD Unavailable [phone] Jacqueline Mccallum RN Unavailable Mel sears@[email or web address] Jacqueline Drummond BREWERY CELLAR WORKER Unavailable [phone] Bianca Cedeño CAR SALESMAN Unavailable [phone] Rosa Maria Swanson PA-C Unavailable Marta Fink Unavailable Gregory Odonnell@[facility]. U Pcp, Unknown Primary Care Provider UnavailRee Eugene RN Unavailable [phone] Stephanie Major RN Unavailable NATHANIEL MITCHELL@[email or web address] Niyah Kim RN Unavailable niyah [email or web address].[facility] Johan Vilchis MD Unavailable [phone] Encounter Details Date Type Department Care Team (Late st Contact Info) Description 03/17/2025 Procedure Pass [facility] Radiology Department [address] [place] [address] Social History Tobacco Use Types Packs/Day Years [...] 09/29/2024 Are you denied basic needs s uch [...] st Contact Info) Description 05/26/2025 Procedure Pass [facility] Radiology Department [address] [place] [address] 06/23/2025 2:30 PM EDT Ancillary Procedure [facility] Radiology Department [address] [place] [address] Sandra Riley MD [address] [place] [address] Kelvin@[facility] 06/23/2025 3:30 PM EDT Blood Draw Laboratory Services, [address], 2nd [place] [address] Sandra Riley MD [address] [place] [address] Kelvin@[facility] 06/23/2025 4:00 PM EDT Office Visit [facility], [address], 9th [place] [address] Sandra Riley MD [address] [place] [address] Kelvin@[facility] 08/11/2025 1:20 PM EST Telemedicine [facility] Medical Specialties [address] [facility]2 [place] [address] Lynda Villafana MD [address] [place] [address], [facility] [place] [address] ABDI@[facility] 09/15/2025 9:20 AM EST Office Visit [address] 12th [place] [address] Delores Rhoades MD [address] [place] [address] [email or web address]@[facility] documented as of this encounter Visit Diagnoses Not on filedocumented in this encounter Care Teams Inside Sales Executive Relationship Specialty Start Date End Date Pcp, Unknown PCP - General 09/02/24 Trent Banks MD [email or web address] Radiation Oncology 10/02/21 Sandra Riley MD [address] [place] [address] Kelvin@[facility] Primary Oncologist Neurology 10/02/21 Jacqueline Mccallum, RN [address] [place] [address] Julian@[facility] Primary Infusion Nurse 10/19/21 Jacqueline Drummond, BREWERY CELLAR WORKER 35 [place] [address] Jorge@[facility] Performance Architect Oncology 11/27/21 Bianca Cedeño, CAR SALESMAN [address] [address] Tanya@[facility] Internal Medicine 10/08/23 Rosa Maria Swanson PA-C [address] [place] [address] Celina@[facility] Physician Multiple Tube Winding Machine Operator 11/04/23 Marta Fink [address] [place] [address] Audrey @[facility] Matcher Leather Parts 12/12/23 Ree Rasmussen, RN [address] [place] [address] CHARLIE@[facility] Primary Infusion Nurse 11/02/24 Stephanie Zuniga, ROSELINE [address] [place] [address] MARYJANE@[facility] Associate Infusion Nurse 11/02/24 Niyah Kim RN [address] [place] [address] [email or web address]@[facility] Associate Infusion Nurse 11/02/24 Johan Vilchis MD [address] [place] [address] Ophthalmology 04/02/25 documented as of this encounter Additional Source Comments The information contained in this document represents components of the legal health record. It is not the complete legal health record.[facility]
--- OUTSIDE RECORDS SUMMARY | 2025-06-01 18:39 | XMS_ITS | Encounter Summary ---
Author Organization [facility] Address [address] [facility] [address] [place] [address] Phone Care Team Providers Care Stakes Player Name Role Phone Trent Banks MD Unavailable [phone] Sandra Riley MD Unavailable [phone] Jacqueline Mccallum RN Unavailable Mel sears@[facility] Jacqueline Drummond STOCK CLIPPER Unavailable [phone] Bianca Cedeño EASTERN PHILOSOPHY PROFESSOR Unavailable [phone] Rosa Maria Swanson PA-C Unavailable Marta Fink Unavailable Gregory Odonnell@[facility].[place]. U Pcp, Unknown Primary Care Provider UnavailRee Eugene RN Unavailable [phone] Stephanie Major RN Unavailable NATHANIEL MITCHELL@[facility] Niyah Kim RN Unavailable niyah [email or web address]@[facility].[place].[facility] Johan Vilchis MD Unavailable [phone] Encounter Details Date Type Department Care Team (Late st Contact Info) Description 09/02/2024 Procedure Pass [facility]' Patient Services Assistant [place] [address] [place] [address] Social History Tobacco Use Types Packs/Day Years [...] st Contact Info) Description 05/26/2025 Procedure Pass [facility] Radiology Department [address] [place] [address] 06/23/2025 2:30 PM EDT Ancillary Procedure [facility] Radiology Department [address] [place] [address] Sandra Riley MD [address] [place] [address] Kelvin@[facility] 06/23/2025 3:30 PM EDT Blood Draw Laboratory Services, [address], 2nd [place] [address] Sandra Riley MD [address] [place] [address] Kelvin@[facility] 06/23/2025 4:00 PM EDT Office Visit [facility] for Neuro[facility]On[facility], [address], 9th [place] [address] Sandra Riley MD [address] [place] [address] Kelvin@[facility] 08/11/2025 1:20 PM EST Telemedicine [facility] Medical Specialties [address] [facility]2 [place] [address] Lynda Villafana MD [address] [place] [address], [facility] [place] [address] ABDI@[facility] 09/15/2025 9:20 AM EST Office Visit [address] 12th [place] [address] Delores Rhoades MD [address] [place] [address] [email or web address] documented as of this encounter Visit Diagnoses Not on filedocumented in this encounter Care Teams Stakes Player Relationship Specialty Start Date End Date Pcp, Unknown PCP - General 09/02/24 Trent Banks MD [email or web address] Radiation Oncology 10/02/21 Sandra Riley MD [address] [place] [address] Kelvin@[facility] Primary Oncologist Neurology 10/02/21 Jacqueline Mccallum, RN [address] [place] [address] Julian@[facility] Primary Infusion Nurse 10/19/21 Jacqueline Drummond, [address] [address] Jorge@[facility] Car Coupler Oncology 11/27/21 Bianca Cedeño, EASTERN PHILOSOPHY PROFESSOR [address] [address] Tanya@[facility] Internal Medicine 10/08/23 Rosa Maria Swanson PA-C [address] [place] [address] Celina@[facility] Physician Director Client 11/04/23 Marta Fink [address] [place] [address] Audrey @[facility] Order Desk Caller 12/12/23 Ree Rasmussen RN [address] [place] [address] CHARLIE@[facility] Primary Infusion Nurse 11/02/24 Stephanie Zuniga, ROSELINE [address] [place] [address] MARYJANE@[facility] Associate Infusion Nurse 11/02/24 Niyah Kim RN [address] [place] [address] [email or web address] Associate Infusion Nurse 11/02/24 Johan Vilchis MD [address] [place] [address] Ophthalmology 04/02/25 documented as of this encounter Additional Source Comments The information contained in this document represents components of the legal health record. It is not the complete legal health record.[facility]
--- OUTSIDE RECORDS SUMMARY | 2025-06-01 18:39 | XMS_ITS | Encounter Summary ---
Author Organization [facility] Address [address] [facility] [address] [place] [address] Phone Care Team Providers Care Organizational Effectiveness Director Name Role Phone Trent Banks MD Unavailable [phone] Sandra Riley MD Unavailable [phone] Jacqueline Mccallum RN Unavailable Mel sears@[facility] Jacqueline Drummond SEEING EYE DOG TEACHER Unavailable [phone] Bianca Cedeño CHEMICAL CHECKER Unavailable [phone] Rosa Maria Swanson PA-C Unavailable Marta Fink Unavailable Gregory Odonnell@[facility]. U Pcp, Unknown Primary Care Provider UnavailRee Eugene RN Unavailable [phone] Stephanie Major RN Unavailable NATHANIEL MITCHELL@[facility] Niyah Kim RN Unavailable niyah [email or web address].[email or web address].[facility] Johan Vilchis MD Unavailable [phone] Encounter Details Date Type Department Care Team (Late st Contact Info) Description 01/06/2025 Procedure Pass [facility]' Customer Professional [place] [address] [place] [address] Social History Tobacco Use Types Packs/Day Years [...] 05/26/2025 Procedure Pass [facility] Radiology Department [address] [place] [address] 06/23/2025 2:30 PM EDT Ancillary Procedure [facility] Radiology Department [address] [place] [address] Sandra Riley MD [address] [place] [address] Kelvin@[facility] 06/23/2025 3:30 PM EDT Blood Draw Laboratory Services, [address], 2nd [place] [address] Sandra Riley MD [address] [place] [address] Kelvin@[facility] 06/23/2025 4:00 PM EDT Office Visit [facility] for Neuro[facility]Oncology, [address], 9th [place] [address] Sandra Riley MD [address] [place] [address] Kelvin@[facility] 08/11/2025 1:20 PM EST Telemedicine [facility] Medical Specialties [address] [facility]2 [place] [address] Lynda Villafana MD [address] [place] [address], [facility] [place] [address] ABDI@[facility] 09/15/2025 9:20 AM EST Office Visit [address] 12th [place] [address] Delores Rhoades MD [address] [place] [address] hayley@[facility] documented as of this encounter Visit Diagnoses Not on filedocumented in this encounter Care Teams Organizational Effectiveness Director Relationship Specialty Start Date End Date Pcp, Unknown PCP - General 09/02/24 Trent Banks MD [email or web address]@[facility] Radiation Oncology 10/02/21 Sandra Rilye MD [address] [place] [address] Kelvin@[facility] Primary Oncologist Neurology 10/02/21 Jacqueline Mccallum, RN [address] [place] [address] Julian@[facility] Primary Infusion Nurse 10/19/21 Jacqueline Drummond, [address] [address] Jorge@[facility] Design Release Engineer Oncology 11/27/21 Bianca Cedeño, CHEMICAL CHECKER [address] [address] Tanya@[facility] Internal Medicine 10/08/23 Rosa Maria Swanson PA-C [address] [place] [address] Celina@[facility] Physician Meter Repairer 11/04/23 Marta Fink [address] [place] [address] Audrey @[facility] Shield Operator 12/12/23 Ree Rasmussen RN [address] [place] [address] CHARLIE@[facility] Primary Infusion Nurse 11/02/24 Stephanie Zuniga, ROSELINE [address] [place] [address] MARYJANE@[facility] Associate Infusion Nurse 11/02/24 Niyah Kim RN [address] [place] [address] [email or web address]@[facility] Associate Infusion Nurse 11/02/24 Johan Vilchis MD [address] [place] [address] Ophthalmology 04/02/25 documented as of this encounter Additional Source Comments The information contained in this document represents components of the legal health record. It is not the complete legal health record.[facility]
--- OUTSIDE RECORDS SUMMARY | 2025-06-01 18:39 | XMS_ITS | Encounter Summary ---
Author Organization [facility] Address [address] [facility] [address] [place] [address] Phone Care Team Providers Care Assistant To The Dean Name Role Phone Trent Banks MD Unavailable [phone] Sandra Riley MD Unavailable [phone] Jacqueline Mccallum RN Unavailable Mel sears@[facility] Jacqueline Drummond ENGINEERING ANALYST Unavailable [phone] Bianca Cedeño RECORDER GRAVITY PROSPECTING Unavailable [phone] Rosa Maria Swanson PA-C Unavailable Marta Fink Unavailable Gregory Odonnell@[facility]. U Pcp, Unknown Primary Care Provider UnavailRee Eugene RN Unavailable [phone] Stephanie Major RN Unavailable NATHANIEL MITCHELL@[facility] Niyah Kim RN Unavailable niyah [email or web address].[facility] Johan Vilchis MD Unavailable [phone] Encounter Details Date Type Department Care Team (Late st Contact Info) Description 09/29/2024 Procedure Pass [facility] Endoscopy Department [address] [place] [address] Social History Tobacco Use Types Packs/Day Years [...] Description 05/26/2025 Procedure Pass [facility] Radiology Department [address] [place] [address] 06/23/2025 2:30 PM EDT Ancillary Procedure [facility] Radiology Department [address] [place] [address] Sandra Riley MD [address] [place] [phone] Kelvin@[facility] 06/23/2025 3:30 PM EDT Blood Draw Laboratory Services, [address], 2nd [place] [address] Sandra Riley MD [address] [place] [address] Kelvin@[facility] 06/23/2025 4:00 PM EDT Office Visit [facility] for Neuro[facility]On[facility], [address], 9th [place] [address] Sandra Riley MD [address] [place] [address] Kelvin@[facility] 08/11/2025 1:20 PM EST Telemedicine [facility] Medical Specialties [address] [facility]2 [place] [address] Lynda Villafana MD [address] [place] [address], [place] [address] ABDI@[facility] 09/15/2025 9:20 AM EST Office Visit [facility] [address] [facility] 12th [place] [address] Delores Rhoades MD [address] [place] [address] hayley@[facility] documented as of this encounter Visit Diagnoses Not on filedocumented in this encounter Care Teams Assistant To The Dean Relationship Specialty Start Date End Date Pcp, Unknown PCP - General 09/02/24 Trent Banks MD [email or web address]@[facility] Radiation Oncology 10/02/21 Sandra Riley MD [address] [place] [address] Kelvin@[facility] Primary Oncologist Neurology 10/02/21 Jacqueline Mccallum RN [address] [place] [address] Julian@[facility] Primary Infusion Nurse 10/19/21 Jacqueline Drummond, [address] [address] Jorge@[facility] Glass Sander Belt Oncology 11/27/21 Bianca Cedeño, RECORDER GRAVITY PROSPECTING [address] [address] Tanya@[facility] Internal Medicine 10/08/23 Rosa Maria Swanson PA-C [address] [place] [address] Celina@[facility] Physician Construction Producer 11/04/23 Marta Fink [address] [place] [address] Audrey @[facility] Traffic Enumerator 12/12/23 Ree Rasmussen, ROSELINE [address] [place] [address] CHARLIE@[facility] Primary Infusion Nurse 11/02/24 Stephanie Zuniga, ROSELINE [address] [place] [address] MARYJANE@[facility] Associate Infusion Nurse 11/02/24 Niyah Kim RN [address] [place] [address] [email or web address] Associate Infusion Nurse 11/02/24 Johan Vilchis MD [address] [place] [address] Ophthalmology 04/02/25 documented as of this encounter Additional Source Comments The information contained in this document represents components of the legal health record. It is not the complete legal health record.[facility]
--- OUTSIDE RECORDS SUMMARY | 2025-06-01 18:39 | XMS_ITS | Encounter Summary ---
Author Organization [facility] Address 399 [facility] [address] [place] [address] Phone Care Team Providers Care Electrical Test Engineer Name Role Phone Agustin Sanchez MD Primary Care Provider Trent Banks MD Unavailable [phone] Sandra Riley MD Unavailable [phone] Jacqueline Mccallum RN Unavailable Mel [email or web address]. Jacqueline Aden RIG OPERATOR Unavailable [phone] Bianca Cedeño CYLINDER CHECKER Unavailable [phone] Rosa Maria Ervin PA-C Unavailable [phone] Marta Fink Unavailable Gregory Odonnell@[facility].[place] Pcp, Unknown Primary Care Provider UnavailRee Eugene RN Unavailable [phone] Stephanie Major RN Unavailable NATHANIEL MITCHELL@[facility].[place].[facility] Niyah Kim RN Unavailable [email or web address] [email or web address] Johan Vilchis MD Unavailable [phone] Encounter Details Date Type Department Care Team (Late st Contact Info) Description 09/18/2023 Procedure Pass [facility] Urban Renewal Manager [address] [place] [address] Social History Tobacco Use Types Packs/Day Years [...] PM EDT documented as of this encounter Functional Status * Calculated C-SSRS Risk Score (Lifetime/Recent) Answer Date of Assessment Author No Risk Indicated 09/18/2023 5:32 PM Carly Quesada RN * [place] Suicide Severity Rating Scale (Screener/Recent Self-Report) Question Answer Date of Assessment Author 1. Wish to be (Past 1 Month) No 024 5:32 PM Carly Quesada RN 2. Non-Specific Active Suici mingo Thoughts (Past 1 Month) No 09/18/2023 5:32 PM Lawrence Quesada RN 6. Suicidal Behavior (Lifetime) No 5:32 PM Carly Quesada RN documented as of this encounter Plan of Treatment Upcoming Encounters Date Type Department Care Team (Late st Contact Info) Description 05/26/2025 Procedure Pass [facility] Radiology Department [address] [place] [address] 06/23/2025 2:30 PM EDT Ancillary Procedure [facility] Radiology Department [address] [place] [address] Sandra Riley MD [address] [place], [place] [address] Kelvin@[facility] 06/23/2025 3:30 PM EDT Blood Draw Laboratory Services, [facility] [address] [facility], 2nd [place] [address] Sandra Riley MD [address] [place] [address] Kelvin@[facility] 06/23/2025 4:00 PM EDT Office Visit [facility], [facility] [address] [facility], 9th [place] [address] Sandra Riley MD [address] [place] [address] Kelvin@[facility] 08/11/2025 1:20 PM EST Telemedicine [facility] Medical Specialties [address] [facility]2 [place] [address] Lynda Villafana MD [address] [place] [address], [place] [address] ABDI@[facility] 09/15/2025 9:20 AM EST Office Visit [facility] [address] [facility] 12th [place] [address] Delores Rhoades MD [address] [place] [address] [email or web address] documented as of this encounter Visit Diagnoses [...] documented as of this encounter Care Teams Electrical Test Engineer Relationship Specialty Start Date End Date Agustin Sanchez MD PCP - General Internal Medicine 06/26/21 09/01/24 Pcp, Unknown PCP - General 09/02/24 Trent Banks MD [email or web address] Radiation Oncology 10/02/21 Sandra Riley MD [address] [place] [address] Kelvin@[facility] Primary Oncologist Neurology 10/02/21 Jacqueline Mccallum, RN [address] [place] [address] Julian@[facility] Primary Infusion Nurse 10/19/21 Jacqueline Drummodn, [address] [address] [email or web address] Tinning Equipment Tender Oncology 11/27/21 Bianca Cedeño CYLINDER CHECKER [address] [address] Tanya@[facility] Internal Medicine 10/08/23 Rosa Maria Swanson PA-C [address] [place] [address] Celina@[facility] .ON LICENSE OF [facility] Physician Marble Installation Helper 11/04/23 Marta Fink [address] [place] [address] Audrey @[facility] Medical Historian 12/12/23 Ree Rasmussen, ROSELINE [address] [place] [address] CHARLIE@[facility] Primary Infusion Nurse 11/02/24 Stephanie Zuniga, ROSELINE [address] [place] [address] MARYJANE@[facility] Associate Infusion Nurse 11/02/24 Niyah Kim, ROSELINE [address] [place] [address] [email or web address] Associate Infusion Nurse 11/02/24 Johan Vilchis MD [address] [place] [address] Ophthalmology 04/02/25 documented as of this encounter Additional Source Comments The information contained in this document represents components of the legal health record. It is not the complete legal health record.[facility]
--- OUTSIDE RECORDS SUMMARY | 2025-06-01 18:39 | XMS_ITS | Encounter Summary ---
Author Organization [facility] Address [address] [facility] [address] [place] [address] Phone Care Team Providers Care Etl Bi Developer Name Role Phone Agustin Sanchez MD Primary Care Provider Trent Banks MD Unavailable [phone] Sandra Riley MD Unavailable [phone] Jacqueline Mccallum RN Unavailable Mel sears@[email or web address].[place]. Jacqueline Aden BULLDOGGER Unavailable [phone] Bianca Cedeño ONCOLOGY NAVIGATOR Unavailable [phone] Rosa Maria Ervin PA-C Unavailable [phone] Marta Fink Unavailable Gregory Odonnell@[facility] Pcp, Unknown Primary Care Provider UnavailRee Eugene RN Unavailable [phone] Stephanie Major RN Unavailable NATHANIEL MITCHELL@[facility].[place].[facility] Niyah Kim RN Unavailable [email or web address] [email or web address] Johan Vilchis MD Unavailable [phone] Encounter Details Date Type Department Care Team (Late st Contact Info) Description 11/06/2023 Procedure Pass [facility] Echocardiography [address] [place] [address] Social History Tobacco Use Types Packs/Day Years [...] got money to buy more. Never True 11/04/2023 Within the past 6 months the food we bought just didn't last and we didn't have enough money to get more. Never True Residential Stability Answer Date Recor ded What is your housing situation today? I have saray sing 11/04/2023 How many times have you move d in the past 12 months? Zero (I did not move) 11/04/2023 Paying for Meds Answer Date Recorded Do you have trouble paying for medicines? No 11/04/2023 Paying Utility Bills Answer Date Record ed Do you have trouble paying your heating or elect ricity bill? No 11/04/2023 Transportation Answer Date Recorded Has the lack of transportati on kept you from medical appointments or from getting medications? No 11/04/2023 Digital Access Answer Date Recorded No 11/04/2023 Yes 11/04/2023 Do you have reliable internet access at home? Ye s 11/04/2023 Do you have a device (e.g., phone, tablet, computer) with a working camera? Yes 11/04/2023 Comments No Sex and Gender Information Value Date Recorded Sex Assigned at Female 06/12/2021 3:58 PM EDT Legal Sex Female 9:58 AM EDT Gender Identity Female 06/12/2021 3:58 PM EDT Sexual Orientation Straight 06/12/2021 3: 58 PM EDT documented as of this encounter Plan of Treatment Upcoming Encounters Date Type Department Care Team (Late st Contact Info) Description 05/26/2025 Procedure Pass [facility] Radiology Department [address] [place] [address] 06/23/2025 2:30 PM EDT Ancillary Procedure [facility] Department [address] [place] [address] Sandra Riley MD [address] [place] [address] Kelvin@[facility] 06/23/2025 3:30 PM EDT Blood Draw Laboratory Services, [facility] [address] [facility], 2nd [place] [address] Sandra Riley MD [address] [place] [address] Kelvin@[facility] 06/23/2025 4:00 PM EDT Office Visit Center for Neuro[facility]Oncology, [facility] [address] [facility], 9th [place] [address] Snadra Riley MD [address] [place] [address] Kelvin@[facility] 08/11/2025 1:20 PM EST Telemedicine [facility] [address] [facility]2 [place] [address] Lynda Villafana MD [address] [place] [address], [facility] [place] [address] ABDI@[email or web address] 09/15/2025 9:20 AM EST Office Visit [facility] 243 [facility] 12th [place] [address] Delores Rhoades MD [address] [place] [address] [email or web address] documented as of this encounter [...] documented as of this encounter Care Teams Etl Bi Developer Relationship Specialty Start Date End Date Agustin Sanchez MD PCP - General Internal Medicine 06/26/21 09/01/24 Pcp, Unknown PCP - General 09/02/24 Trent Banks MD [email or web address] Radiation Oncology 10/02/21 Sandra Riley MD [address] [place] [address] [email or web address]@[facility] Primary Oncologist Neurology 10/02/21 Jacqueline Mccallum, RN [address] [place] [address] Julian@[facility] Primary Infusion Nurse 10/19/21 Jacqueline Drummond, [address] [address] Jorge@[email or web address] High School Foreign Language Tutor Oncology 11/27/21 Bianca Cedeño, ONCOLOGY NAVIGATOR [address] [place] [address] Tanya@[facility] Internal Medicine 10/08/23 Rosa Maria Swanson PASpenserC [address] [place] [address] Celina@[facility] .[facility] Physician Early Childhood Education Instructor 11/04/23 Marta Fink [address] [place] [address] Audrey @[facility] Design Transferrer 12/12/23 Ree Rasmussen RN [address] [place] [address] CHARLIE@[facility] Primary Infusion Nurse 11/02/24 Stephanie Zuniga, ROSELINE [address] [place] [address] MARYJANE@[facility] Associate Infusion Nurse 11/02/24 Niyah Kim, ROSELINE [address] [place] [address] [email or web address] Associate Infusion Nurse 11/02/24 Johan Vilchis MD [address] [place] [address] Ophthalmology 04/02/25 documented as of this encounter Additional Source Comments The information contained in this document represents components of the legal health record. It is not the complete legal health record.[facility]
--- OUTSIDE RECORDS SUMMARY | 2025-06-01 18:39 | XMS_ITS | Encounter Summary ---
Author Organization [facility] Address [address] [place] [address] Phone Care Team Providers Care Box Blank Machine Operator Name Role Phone Agustin Sanchez MD Primary Care Provider Trent Banks MD Unavailable [phone] Sandra Riley MD Unavailable [phone] Jacqueline Mccallum RN Unavailable Mel [email or web address]@[facility].[email or web address]. Jacqueline Aden MUSIC WRITER Unavailable [phone] Bianca Cedeño GRAVEL INSPECTOR Unavailable [phone] Rosa Maria Ervin PA-C Unavailable [phone] Marta Fink Unavailable Gregory Odonnell@[facility] Pcp, Unknown Primary Care Provider UnavailRee Eugene RN Unavailable [phone] Stephanie Major RN Unavailable NATHANIEL MITCHELL@[facility] Niyah Kim RN Unavailable [email or web address] [email or web address] Johan Vilchis MD Unavailable [phone] Encounter Details Date Type Department Care Team (Late st Contact Info) Description 04/18/2022 Procedure Pass [facility] MR Imaging, Manuel [address] [place] [address] Social History Tobacco Use Types Packs/Day Years [...] Pass [facility] Radiology Department [address] [place] [address] 06/23/2025 2:30 PM EDT Ancillary Procedure [facility] Radiology Department [address] [place] [address] Sandra Riley MD [address] [place] [address] Kelvin@[facility] 06/23/2025 3:30 PM EDT Blood Draw Laboratory Services, [facility] [address] [facility], 2nd [place] [address] Sandra Riley MD [address] [place] [address] Kelvin@[facility] 06/23/2025 4:00 PM EDT Office Visit Center for Neuro-Oncology, [facility] [address] [facility], 9th [place] [address] Sandra Riley MD [address] [place] [address] Kelvin@[facility] 08/11/2025 1:20 PM EST Telemedicine [facility] 45 [facility]2 [place] [address] Lynda Villafana MD [address] [place] [address], [place] [address] RLPIPE@[facility] 09/15/2025 9:20 AM EST Office Visit [facility] [address] 12th [place] [address] Delores Rhoades MD [address] [place] [address] [email or web address] documented as of this encounter [...] documented as of this encounter Care Teams Box Blank Machine Operator Relationship Specialty Start Date End Date Agustin Sanchez MD PCP - General Internal Medicine 06/26/21 09/01/24 Pcp, Unknown PCP - General 09/02/24 Trent Banks MD [email or web address] Radiation Oncology 10/02/21 Sandra Riley MD [address] [place] [address] Kelvin@[facility] Primary Oncologist Neurology 10/02/21 Jacqueline Mccallum, RN [address] [place] [address] Julian@[facility] Primary Infusion Nurse 10/19/21 Jacqueline Drummond, [facility] [address] [place] [address] Jorge@[email or web address] Janitor Helper Oncology 11/27/21 Bianca Cedeño, GRAVEL INSPECTOR [address] [address] Tanya@[email or web address] Internal Medicine 10/08/23 Rosa Maria Swanson PA-C [address] [place] [address] Celina@[facility] Physician Engine Manager 11/04/23 Marta Fink [address] [place] [address] Audrey @[facility] Consumer Banker 12/12/23 Ree Rasmussen RN [address] [place] [address] CHARLIE@[facility] Primary Infusion Nurse 11/02/24 Stephanie Zuniga, ROSELINE [address] [place] [address] MARYJANE@[email or web address] Associate Infusion Nurse 11/02/24 Niyah Kim RN [address] [place] [place] [address] [email or web address] Associate Infusion Nurse 11/02/24 Johan Vilchis MD [address] [place] [address] Ophthalmology 04/02/25 documented as of this encounter Additional Source Comments The information contained in this document represents components of the legal health record. It is not the complete legal health record.[facility]
--- OUTSIDE RECORDS SUMMARY | 2025-06-01 18:39 | XMS_ITS | Encounter Summary ---
Author Organization [facility] Address [address] [address] Phone Care Team Providers Care Wood Gang Sawyer Name Role Phone Agustin Sanchez MD Primary Care Provider Trent Banks MD Unavailable [phone] Sandra Riley MD Unavailable [phone] Jacqueline Mccallum RN Unavailable Mel sears@[email or web address].[place]. Jacqueline Aden HAZMAT TRUCK DRIVER Unavailable [phone] Bianca Cedeño FORENSIC IDENTIFICATION SPECIALIST Unavailable [phone] Rosa Maria Ervin PA-C Unavailable [phone] Marta Fink Unavailable Gregory Odonnell@[facility] Pcp, Unknown Primary Care Provider UnavailRee Eugene RN Unavailable [phone] Stephanie Major RN Unavailable NATHANIEL MITCHELL@[email or web address] Niyah Kim RN Unavailable niyah [email or web address].[email or web address].[email or web address] Johan Vilchis MD Unavailable [phone] Encounter Details Date Type Department Care Team (Late st Contact Info) Description 03/20/2022 Telephone Infusion Therapy Services Anand 10, [facility] [place] [address] [facility], 10th [place] [address] Nan Segovia, ROSELINE [address] [place], [place] [phone] [email or web address] Social History Tobacco Use Types Packs/Day Years [...] st Contact Info) Description 05/26/2025 Procedure Pass [facility] Radiology Department [address] [place] [address] 06/23/2025 2:30 PM EDT Ancillary Procedure [facility] Radiology Department [address] [place] [address] Sandra Riley MD [address] [place] [phone] Kelvin@[facility] 06/23/2025 3:30 PM EDT Blood Draw Laboratory Services, [facility] [address] [facility], 2nd [place] [address] Sandra Riley MD [address] [place] [address] Kelvin@[facility] 06/23/2025 4:00 PM EDT Office Visit Center for Neuro[facility]Oncology, [facility] [place] [address] [facility], 9th [place] [address] Sandra Riley MD [address] [place] [address] Kelvin@[facility] 08/11/2025 1:20 PM EST Telemedicine [facility] Medical Specialties 45 [facility]2 [place] [address] Lynda Villafana MD [address] [facility], [facility] [place] [address] ABDI@[facility] 09/15/2025 9:20 AM EST Office Visit [facility] [address] 12th [place] [address] Delores Rhoades MD [address] [place] [address] [email or web address] documented as of this encounter [...] documented as of this encounter Care Teams Wood Gang Sawyer Relationship Specialty Start Date End Date Agustin Sanchez MD PCP - General Internal Medicine 06/26/21 09/01/24 Pcp, Unknown PCP - General 09/02/24 Trent Banks MD [email or web address] Radiation Oncology 10/02/21 Sandra Riley MD [address] [place] [address] Kelvin@[facility] Primary Oncologist Neurology 10/02/21 Jacqueline Mccallum RN [address] [place] [address] Julian@[email or web address] Primary Infusion Nurse 10/19/21 Jacqueline Drummond, [address] [address] Jorge@[email or web address] Vinyl Cutter Oncology 11/27/21 Bianca Cedeño, FORENSIC IDENTIFICATION SPECIALIST [address] [address] [email or web address]@[facility] Internal Medicine 10/08/23 Rosa Maria Swanson PA-C [address] [place] [address] Celina@[facility] Physician Cash On Delivery Clerk 11/04/23 Marta Fink [address] [place] [address] Audrey @[facility] Senior Relationship Manager 12/12/23 Ree Rasmussen RN [address] [place] [address] CHARLIE@[facility] Primary Infusion Nurse 11/02/24 Stephanie Zuniga, ROSELINE [address] [place] [address] MARYJANE@[facility] Associate Infusion Nurse 11/02/24 Niyah Kim, ROSELINE [address] [place] [address] [email or web address] Associate Infusion Nurse 11/02/24 Johan Vilchis MD [address] [address] Ophthalmology 04/02/25 documented as of this encounter Additional Source Comments The information contained in this document represents components of the legal health record. It is not the complete legal health record.[facility]
--- OUTSIDE RECORDS SUMMARY | 2025-06-01 18:39 | XMS_ITS | Encounter Summary ---
Author Organization [employer] Address 75 [facility] 7t [place] [address] Care Team Providers Care Hard Candy Spinner Name Role Phone Elmer Barros PA-C Primary Care Provider [phone] Margareth Avalos DO Primary Care Provider [phone] Elmer Barros PA-C Unavailable [phone] Reason for Visit * Reason Comments Med Change Request Encounter Details Date Type Department Care Team (Late st Contact Info) Description 07/02/[address] [facility] [address] [place] [phone] Elmer Barros PA-C [address] [place], [place] [phone] Other hemorrhoids Social History Tobacco Use Types Packs/Day Years Used Date Smoking Tobacco: Former Cigarettes 1 30.9 S tarted: 07/02/1994 Smokeless Tobacco: Never Alcohol Use Standard Drinks/Week Comments Not Currently 0 (1 standard drink = 0.6 oz pur e alcohol) Housing Stability Answer Date Recorded What is your housing situation today? I have sarayjoseph lópez 07/02/[address] you [...] on file documented as of this encounter Functional Status * Over the past 2 weeks, how often have you been bothered by any of the following problems? Question Answer Date of Assessment Author Patient Health Questionnaire-2 Score 0 02/2024 9:34 AM Katie Watson * Little interest or pleasure in doing things Answer Date of Assessment Author Not at all 07/02/2024 9:34 AM Katie Watson * Feeling down, depressed, or hopeless Answer Date of Assessment Author Not at all 07/02/2024 9:34 AM EST Katie Murray documented as of this encounter Miscellaneous Notes * Telephone Encounter - Hollie Jauregui [place] - 07/02/2024 10:35 AM EST PCP: Elmer Barros PA-C Last in-person office visit: 07/02/2024 Elmer Barros PA-C No results found for: BUN , CREATININE , EGFRCREATINI , HGBA1C , K , TSH Assessment: [] Protocol passed [] Lab due [] Appointment due Plan: [] Please refill for 7 days [] Lab [] BMP [] TSH [] A1C [] Appointment due: No future appointments. Comments: documented in this encounter Plan of Treatment Not on file documented as of this encounter Visit Diagnoses Diagnosis Other hemorrhoids documented in this encounter Care Teams Hard Candy Spinner Relationship Specialty Start Date End Date Elmer Barros PA-C [address] [place] [address] PCP - General Family Medicine 07/02/24 12/02/24 Margareth Avalos DO [address] [place] [address] PCP - General Family Medicine 12/03/24 Elmer Barros PA-C [address] [place] [address] Family Medicine 12/03/24 documented as of this encounter
--- OUTSIDE RECORDS SUMMARY | 2025-06-01 18:39 | XMS_ITS | Encounter Summary ---
Author Organization [facility] Address [address] [facility] [address] [place] [address] Phone Care Team Providers Care Tar Distributor Operator Name Role Phone Trent Banks MD Unavailable [phone] Sandra Riley MD Unavailable [phone] Jacqueline Mccallum RN Unavailable Mel [email or web address] Jacqueline Drummond POLYETHYLENE COMBINER Unavailable [phone] Bianca Cedeño RECREATION OFFICER Unavailable [phone] Rosa Maria Swanson PA-C Unavailable [phone] Marta Fink Unavailable Gregory Odonnell@[facility]. U Pcp, Unknown Primary Care Provider UnavailRee Eugene RN Unavailable [phone] Stephanie Major RN Unavailable NATHANIEL MITCHELL@[email or web address].[facility] Niyah Kim RN Unavailable niyah [email or web address] Johan Vilchis MD Unavailable Encounter Details Date Type Department Care Team (Late st Contact Info) Description 09/09/2024 Procedure Pass [facility] [address] [place] [address] Social History Tobacco Use Types Packs/Day Years [...] st Contact Info) Description 05/26/2025 Procedure Pass [facility] Radiology Department [address] [place] [address] 06/23/2025 2:30 PM EDT Ancillary Procedure [facility] Radiology Department [address] [place] [address] Sandra Riley MD [address] [place] [address] Kelvin@[facility] 06/23/2025 3:30 PM EDT Blood Draw Laboratory Services, [address], 2nd [place] [address] Sandra Riley MD [address] [place] [address] Kelvin@[facility] 06/23/2025 4:00 PM EDT Office Visit [facility], [address], 9th [place] [address] Sandra Riley MD [address] [place] [address] Kelvin@[facility] 08/11/2025 1:20 PM EST Telemedicine [facility]ties [address] [facility]2 [place] [address] Lynda Villafana MD [address] [place] [address], [place] [address] ABDI@[facility] 09/15/2025 9:20 AM EST Office Visit [facility] [address] [facility] 12th [place] [address] Delores Rhoades MD [address] [place] [address] [email or web address] documented as of this encounter Visit Diagnoses Not on filedocumented in this encounter Care Teams Tar Distributor Operator Relationship Specialty Start Date End Date Pcp, Unknown PCP - General 09/02/24 Trent Banks MD [email or web address] Radiation Oncology 10/02/21 Sandra Riley MD [address] [place] [address] Kelvin@[facility] Primary Oncologist Neurology 10/02/21 Jacqueline Mccallum, ROSELINE [address] [place] [address] Julian@[facility] Primary Infusion Nurse 10/19/21 Jacqueline Drummond, [facility] [address] [place] [address] [email or web address] Release Of Information Specialist Oncology 11/27/21 Bianca Cedeño, RECREATION OFFICER [address] [address] Tanya@[facility] Internal Medicine 10/08/23 Rosa Maria Swanson PA-C [address] [place] [address] Celina@[facility] Physician Intranet Developer 11/04/23 Marta Fink [address] [place] [address] Audrey @[facility] Radiotelegrapher 12/12/23 Ree Rasmussen, [place] [address] [place] [address] CHARLIE@[facility] Primary Infusion Nurse 11/02/24 Stephanie Zuniga, [place] [address] [place] [address] MARYJANE@[facility] Associate Infusion Nurse 11/02/24 Niyah Kim RN [address] [place] [address] [email or web address] Associate Infusion Nurse 11/02/24 Johan Vilchis MD [address] [place] [address] Ophthalmology 04/02/25 documented as of this encounter Additional Source Comments The information contained in this document represents components of the legal health record. It is not the complete legal health record.[facility]
--- OUTSIDE RECORDS SUMMARY | 2025-06-01 18:39 | XMS_ITS | Encounter Summary ---
Author Organization [facility] Address [address] [facility] [address] [place] [address] Phone Care Team Providers Care Turn Down Worker Name Role Phone Agustin Sanchez MD Primary Care Provider Trent Banks MD Unavailable [phone] Sandra Riley MD Unavailable [phone] Jacqueline Mccallum RN Unavailable Mel [email or web address]. Jacqueline Aden NETWORK AND THREAT SUPPORT SPECIALIST Unavailable [phone] Bianca Cedeño SENIOR CONSULTING MANAGER Unavailable [phone] Rosa Maria Ervin PA-C Unavailable [phone] Marta Fink Unavailable Gregory Odonnell@[facility] Pcp, Unknown Primary Care Provider UnavailRee Eugene RN Unavailable [phone] Stephanie Major RN Unavailable NATHANIEL MITCHELL@[email or web address].[facility] Niyah Kim RN Unavailable [email or web address] [email or web address] Johan Vilchis MD Unavailable [phone] Encounter Details Date Type Department Care Team (Late st Contact Info) Description 11/18/2023 Procedure Pass [facility] Echocardiography [address] [place] [address] Social History Tobacco Use Types Packs/Day Years [...] Date of Assessment Author No Risk Indicated 11/18/2023 8:49 PM EDT Audrey Sharp RN * [place] Suicide Severity Rating Scale (Screener/Recent Self-Report) Question Answer Date of Assessment Author 1. Wish to be (Past 1 Month) No 11/18/2023 8:49 PM EDT Audrey Sharp, ROSELINE 2. Non-Specific Active Suicidal Thoughts (Past 1 Month) No 11/18/2023 8:49 PM EDT Audrey Sharp, [place] 6. Suicidal Behavior (Lifetime) No 11/18/2023 8:49 PM EDT Audrey Sharp, RN documented as of this encounter Plan of Treatment Upcoming Encounters Date Type Department Care Team (Late st Contact Info) Description 05/26/2025 Procedure Pass [facility] Radiology Department [address] [place] [address] 06/23/2025 2:30 PM EDT Ancillary Procedure [facility] Radiology Department [address] [place] [address] Sandra Riley MD [address] [place] [address] Kelvin@[facility] 06/23/2025 3:30 PM EDT Blood Draw Laboratory Services, [facility] [address] [facility], 2nd [place] [address] Sandra Riley MD [address] [place] [address] Kelvin@[facility] 06/23/2025 4:00 PM EDT Office Visit [facility] for [facility], [facility] [address] [facility], 9th [place] [address] Sandra Riley MD [address] [place] [address] Kelvin@[facility] 08/11/2025 1:20 PM EST Telemedicine [facility] [address] [facility]2 [place] [address] Lynda Villafana MD [address] [place] [address], [place] [address] ABDI@[email or web address] 09/15/2025 9:20 AM EST Office Visit [facility] [address] [facility] 12th [place] [address] Delores Rhoades MD [address] [place] [address] [email or web address] documented as of this encounter Visit Diagnoses Not on filedocumented in this encounter Additional Health Concerns Infection Onset Date Last Indicated Resolved Time CDiff-Risk 01/21/2024 01/21/2024 01/21/2024 10:0 4 AM EDT CDiff-Risk 01/28/2024 01/28/2024 01/29/2024 10:5 6 AM EDT CoV-Risk Comment:Per note documentation 02/01/2024 02/01/2024 6:07 AM EDT CDiff-Risk 02/07/2024 02/07/2024 02/14/2024 1:22 AM EDT documented as of this encounter Care Teams Turn Down Worker Relationship Specialty Start Date End Date Agustin Sanchez MD PCP - General Internal Medicine 06/26/21 09/01/24 Pcp, Unknown PCP - General 09/02/24 Trent Banks MD [email or web address] Radiation Oncology 10/02/21 Sandra Riley MD [address] [place] [address] Kelvin@[facility] Primary Oncologist Neurology 10/02/21 Jacqueline Mccallum, ROSELINE [address] [place] [address] Julian@[facility] Primary Infusion Nurse 10/19/21 Jacqueline Drummond, [facility] [address] [place] [address] Jorge@[facility] Rubber Compounder Mixer Oncology 11/27/21 Bianca Cedeño SENIOR CONSULTING MANAGER [address] [address] Tanya@[facility] Internal Medicine 10/08/23 Rosa Maria Swanson PA-C [address] [place] [address] Celina@[facility] Physician Woodworking Bench Carpenter 11/04/23 Marta Fink [address] [place] [address] Audrey @[facility] Government Relations Director 12/12/23 Ree Rasmussen RN [address] [place] [address] CHARLIE@[facility] Primary Infusion Nurse 11/02/24 Stephanie Zuniga, RN [address] [place] [address] MARYJANE@[facility] Associate Infusion Nurse 11/02/24 Niyah Kim, ROSELINE [address] [place] [address] [email or web address]@[facility] Associate Infusion Nurse 11/02/24 Johan Vilchis MD [address] [place] [address] [place] [address] Ophthalmology 04/02/25 documented as of this encounter Additional Source Comments The information contained in this document represents components of the legal health record. It is not the complete legal health record.[facility]
--- OUTSIDE RECORDS SUMMARY | 2025-06-01 18:39 | XMS_ITS | Encounter Summary ---
Author Organization [facility] Address [address] [place] [address] Phone Care Team Providers Care Stevedoring Superintendent Name Role Phone Agustin Sanchez MD Primary Care Provider Trent Banks MD Unavailable [phone] Sandra Riley MD Unavailable [phone] Jacqueline Mccallum RN Unavailable Mel sears@[email or web address]. Jacqueline Aden VIRTUALIZATION CONSULTANT Unavailable [phone] Bianca Cedeño ULTRASOUND TECHNOLOGIST SONOGRAPHER Unavailable [phone] Rosa Maria Ervin PA-C Unavailable [phone] Marta Fink Unavailable Gregory Odonnell@[email or web address] Pcp, Unknown Primary Care Provider UnavailRee Eugene RN Unavailable [phone] Stephanie Major RN Unavailable NATHANIEL MITCHELL@[email or web address].[facility] Niyah Kim RN Unavailable niyah [email or web address] Johan Vilchis MD Unavailable [phone] Encounter Details Date Type Department Care Team (Late st Contact Info) Description 09/18/2021 Procedure Pass [facility] MR Imaging, Manuel [address] [place] [address] Social History Tobacco Use Types Packs/Day Years [...] st Contact Info) Description 05/26/2025 Procedure Pass [facility] Radiology Department [address] [place] [address] 06/23/2025 2:30 PM EDT Ancillary Procedure [facility] Radiology Department [address] [place] [address] Sandra Riley MD [address] [place] [phone] Kelvin@[facility] 06/23/2025 3:30 PM EDT Blood Draw Laboratory Services, [address], 2nd [place] [address] Sandra Riley MD [address] [place] [address] Kelvin@[facility] 06/23/2025 4:00 PM EDT Office Visit Center for Neuro-Oncology, [facility] [address] [facility], 9th [place] [address] Sandra Riley MD [address] [place] [address] Kelvin@[facility] 08/11/2025 1:20 PM EST Telemedicine [facility] [address] [facility]2 [place] [address] Lynda Villafana MD [address] [place] [address], [place] [address] ABDI@[facility] 09/15/2025 9:20 AM EST Office Visit [facility] [address] 12th [place] [address] Delores Rhoades MD [address] [place] [address] [email or web address] documented as [...] documented as of this encounter Care Teams Stevedoring Superintendent Relationship Specialty Start Date End Date Agustin Sanchez MD PCP - General Internal Medicine 06/26/21 09/01/24 Pcp, Unknown PCP - General 09/02/24 Trent Banks MD [email or web address] Radiation Oncology 10/02/21 Sandra Riley MD [address] [place] [address] Kelvin@[facility] Primary Oncologist Neurology 10/02/21 Jacqueline Mccallum, RN [address] [place] [address] Julian@[facility] Primary Infusion Nurse 10/19/21 Jacqueline Drummond, [facility] [address] [place] [address] Jorge@[facility] Hip Hop Dance Instructor Oncology 11/27/21 Bianca Cedeño, ULTRASOUND TECHNOLOGIST SONOGRAPHER [address] [address] Tanya@[facility] Internal Medicine 10/08/23 Rosa Maria Swanson PA-C [address] [place] [address] Celina@[facility] Physician Mapping Analyst 11/04/23 Marta Fink [address] [place] [address] Audrey @[facility] Plow Mechanic 12/12/23 Ree Rasmussen RN [address] [place] [address] CHARLIE@[facility] Primary Infusion Nurse 11/02/24 Stephanie Zuniga, ROSELINE [address] [place] [address] MARYJANE@[facility] Associate Infusion Nurse 11/02/24 Niyah Kim RN [address] [place] [address] [email or web address] Associate Infusion Nurse 11/02/24 Johan Vilchis MD [address] [place] [address] Ophthalmology 04/02/25 documented as of this encounter Additional Source Comments The information contained in this document represents components of the legal health record. It is not the complete legal health record.[facility]
--- OUTSIDE RECORDS SUMMARY | 2025-06-01 18:39 | XMS_ITS | Encounter Summary ---
Author Organization [facility] Address [address] [place] [address] [place] [address] Phone Care Team Providers Care Blocker And Polisher Gold Wheel Name Role Phone Agustin Sanchez MD Primary Care Provider Trent Banks MD Unavailable [phone] Sandra Riley MD Unavailable [phone] Jacqueline Mccallum RN Unavailable Mel sears@[email or web address]. Jacqueline Aden ALIGNING CHECKER Unavailable [phone] Bianca Cedeño SURGICAL PROCESSOR Unavailable [phone] Rosa Maria Ervin PA-C Unavailable [phone] Marta Fink Unavailable Gregory Odonnell@[facility] Pcp, Unknown Primary Care Provider UnavailRee Eugene RN Unavailable [phone] Stephanie Major RN Unavailable NATHANIEL MITCHELL@[facility] Niyah Kim RN Unavailable niyah [email or web address] Johan Vilchis MD Unavailable [phone] Encounter Details Date Type Department Care Team (Late st Contact Info) Description 03/03/2024 Procedure Pass [facility] MR Imaging, Manuel [address] [place] [address] Social History Tobacco Use Types Packs/Day Years [...] Contact Info) Description 05/26/2025 Procedure Pass [facility] Radiology Department [address] [place] [address] 06/23/2025 2:30 PM EDT Ancillary Procedure [facility] Radiology Department [address] [place] [address] Sandra Riley MD [address] [place] [address] Kelvin@[facility] 06/23/2025 3:30 PM EDT Blood Draw Laboratory Services, [facility] [address] [facility], 2nd [place] [address] Sandra Riley MD [address] [place] [address] Kelvin@[facility] 06/23/2025 4:00 PM EDT Office Visit Center for Neuro-Oncology, [facility] [address] [facility], 9th [place] [address] Sandra Riley MD [address] [place] [address] Kelvin@[facility] 08/11/2025 1:20 PM EST Telemedicine [facility] 45 [facility]2 [place] [address] Lynda Villafana MD [address] [place] [address], [place] [address] ABDI@[facility] 09/15/2025 9:20 AM EST Office Visit [facility] [address] 12th [place] [address] Delores Rhoades MD [address] [place] [address] [email or web address] documented as of this encounter Visit Diagnoses Not on filedocumented in this encounter Care Teams Blocker And Polisher Gold Wheel Relationship Specialty Start Date End Date Agustin Sanchez MD PCP - General Internal Medicine 06/26/21 09/01/24 Pcp, Unknown PCP - General 09/02/24 Trent Banks MD [email or web address] Radiation Oncology 10/02/21 Sandra Riley MD [address] [place] [address] Kelvin@[facility] Primary Oncologist Neurology 10/02/21 Jaqcueline Mccallum, RN [address] [place], [place] Julian@[facility] Primary Infusion Nurse 10/19/21 Jacqueline Drummond, [facility] [address] [place] [address] Jorge@[facility]all[facility] Oncology 11/27/21 Bianca Cedeño, SURGICAL PROCESSOR [address] [address] Tanya@[facility] Internal Medicine 10/08/23 Rosa Maria Swanson PASpenserC [address] [place] [address] Celina@[facility] Physician Career Technical Education Teacher 11/04/23 Marta Fink [address] [place] [address] Audrey @[facility] Shorthand Teacher 12/12/23 Ree Rasmussen RN [address] [place] [address] CHARLIE@[facility] Primary Infusion Nurse 11/02/24 Stephanie Zuniga, ROSELINE [address] [place] [address] MARYJANE@[facility] Associate Infusion Nurse 11/02/24 Niyah Kim, ROSELINE [address] [place] [address] [email or web address] Associate Infusion Nurse 11/02/24 Johan Vilchis MD [address] [place] [address] Ophthalmology 04/02/25 documented as of this encounter Additional Source Comments The information contained in this document represents components of the legal health record. It is not the complete legal health record.[facility]
--- OUTSIDE RECORDS SUMMARY | 2025-06-01 18:39 | XMS_ITS | Encounter Summary ---
Author Organization [facility] Address [address] [place] [address] [address] Phone Care Team Providers Care Custodian Athletic Equipment Name Role Phone Agustin Sanchez MD Primary Care Provider Trent Banks MD Unavailable Sandra Riley MD Unavailable [phone] Jacqueline Mccallum RN Unavailable Mel [email or web address]@[email or web address]. Jacqueline Aden CLINICAL ASST Unavailable [phone] Bianca Cedeño RECRUITING ADMINISTRATOR Unavailable [phone] Rosa Maria Ervin PA-C Unavailable [phone] Marta Fink Unavailable Gregory Odonnell@[facility] Pcp, Unknown Primary Care Provider UnavailRee Eugene RN Unavailable [phone] Stephanie Major RN Unavailable NATHANIEL MITCHELL@[facility].[facility] Niyah Kim RN Unavailable niyah [email or web address] Johan Vilchis MD Unavailable [phone] Encounter Details Date Type Department Care Team (Late st Contact Info) Description 11/18/2023 Procedure Pass [facility] Imaging [facility], [facility] [place], MRI [address] [facility], Floor [address]1 [place] [address] Social History Tobacco Use Types Packs/Day Years [...] 8:49 PM EDT Audrey Sharp RN * [place] Suicide Severity Rating Scale (Screener/Recent Self-Report) Question Answer Date of Assessment Author 1. Wish to be (Past 1 Month) No 11/18/2023 8:49 PM EDT Audrey Sharp, ROSELINE 2. Non-Specific Active Suicidal Thoughts (Past 1 Month) No 11/18/2023 8:49 PM EDT Audrey Sharp, ROSELINE 6. Suicidal Behavior (Lifetime) No 11/18/2023 8:49 PM EDT Audrey Sharp RN documented as of this encounter Plan of Treatment Upcoming Encounters Date Type Department Care Team (Late st Contact Info) Description 05/26/2025 Procedure Pass [facility] Radiology Department [address] [place] [address] 06/23/2025 2:30 PM EDT Ancillary Procedure [facility] Radiology Department [address] [place] [address] Sandra Riley MD [address] [place] [address] Kelvin@[facility] 06/23/2025 3:30 PM EDT Blood Draw Laboratory Services, [facility] [address] [facility], 2nd [place] [address] Sandra Riley MD [address] [place] [address] Kelvin@[facility] 06/23/2025 4:00 PM EDT Office Visit [facility] for Neuro[facility]On[facility], [facility] [address] [facility], 9th [place] [address] Sandra Riley MD [address] [place] [address] Kelvin@[facility] 08/11/2025 1:20 PM EST Telemedicine [facility] [address] [facility]2 [place] [address] Lynda Villafana MD [address] [place] [address] [facility] [place] [address] ABDI@[facility] 09/15/2025 9:20 AM EST Office Visit [facility] [address] 12th [place] [address] Delores Rhoades MD [address] [place] [address] [email or web address] documented as of this encounter Visit Diagnoses Not on filedocumented in this encounter Additional Health Concerns Infection Onset Date Last Indicated Resolved Time CDiff-Risk 01/21/2024 01/21/2024 01/21/2024 10:0 4 AM EDT CDiff-Risk 01/28/2024 01/28/2024 01/29/2024 10:5 6 AM EDT CoV-Risk Comment:Per note documentation 02/01/2024 02/01/2024 6:07 AM EDT CDiff-Risk 02/07/2024 02/07/2024 02/14/2024 1:22 AM EDT documented as of this encounter Care Teams Custodian Athletic Equipment Relationship Specialty Start Date End Date Agustin Sanchez MD PCP - General Internal Medicine 06/26/21 09/01/24 Pcp, Unknown PCP - General 09/02/24 Trent Banks MD [email or web address] Radiation Oncology 10/02/21 Sandra Riley MD [address] [place] [address] Kelvin@[facility] Primary Oncologist Neurology 10/02/21 Jacqueline Mccallum, ROSELINE [address] [place] [address] Julian@[email or web address] Primary Infusion Nurse 10/19/21 Jacqueline Drummond, [facility] 35 [place] [address] [email or web address] Display Associate Oncology 11/27/21 Bianca Cedeño RECRUITING ADMINISTRATOR [address] [address] Tanya@[facility] Internal Medicine 10/08/23 Rosa Maria Swanson PA-C [address] [place] [address] Celina@[facility] Physician Mobile Crane Operator 11/04/23 Marta Fink [address] [place] [address] Audrey @[facility] Vinyl Dipper 12/12/23 Ree Rasmussen RN [address] [place] [address] CHARLIE@[facility] Primary Infusion Nurse 11/02/24 Stephanie Zuniga, RN [address] [place] [address] MARYJANE@[facility] Associate Infusion Nurse 11/02/24 Niyah Kim, ROSELINE [address] [place] [address] [email or web address] Associate Infusion Nurse 11/02/24 Johan Vilchis MD [address] [place] [address] Ophthalmology 04/02/25 documented as of this encounter Additional Source Comments The information contained in this document represents components of the legal health record. It is not the complete legal health record.[facility]
--- OUTSIDE RECORDS SUMMARY | 2025-06-01 18:39 | XMS_ITS | Encounter Summary ---
Author Organization [facility] Address [address] [facility] [address] [place] [address] Phone Care Team Providers Care Pin Cleaner Name Role Phone Trent Banks MD Unavailable [phone] Sandra Riley MD Unavailable [phone] Jacqueline Mccallum RN Unavailable Mel [email or web address]@[email or web address] Jacqueline Drummond AP PROCESSOR Unavailable [phone] Bianca Cedeño BOX LINER Unavailable [phone] Rosa Maria Swanson PA-C Unavailable Marta Fink Unavailable Gregory Odonnell@[email or web address]. [facility] Pcp, Unknown Primary Care Provider UnavailRee Eugene RN Unavailable [phone] Stephanie Major RN Unavailable NATHANIEL MITCHELL@[email or web address] Niyah Kim RN Unavailable [email or web address] [email or web address].[email or web address].[facility] Johan Vilchis MD Unavailable [phone] Encounter Details Date Type Department Care Team (Late st Contact Info) Description 10/28/2024 Procedure Pass [facility] Radiology Department [address] [place] [address] Social History Tobacco Use Types [...] st Contact Info) Description 05/26/2025 Procedure Pass [facility] Radiology Department [address] [place] [address] 06/23/2025 2:30 PM EDT Ancillary Procedure [facility] Radiology Department [address] [place] [address] Sandra Riley MD [address] [place] [address] Kelvin@[facility] 06/23/2025 3:30 PM EDT Blood Draw Laboratory Services, [address], 2nd [place] [address] Sandra Riley MD [address] [place] [address] Kelvin@[facility] 06/23/2025 4:00 PM EDT Office Visit Center for Neuro-Oncology, [address], 9th [place] [address] Sandra Riley MD [address] [place] [address] Kelvin@[facility] 08/11/2025 1:20 PM EST Telemedicine [facility] [address] [facility]2 [place] [address] Lynda Villafana MD [address] [place] [address], [facility] [place] [address] ABDI@[facility] 09/15/2025 9:20 AM EST Office Visit [address] 12th [place] [address] Delores Rhoades MD [address] [place] [address] [email or web address] documented as of this encounter Visit Diagnoses Not on filedocumented in this encounter Care Teams Pin Cleaner Relationship Specialty Start Date End Date Pcp, Unknown PCP - General 09/02/24 Trent Banks MD [email or web address] ed Radiation Oncology 10/02/21 Sandra Riley MD [address] [place] [address] Kelvin@[facility] Primary Oncologist Neurology 10/02/21 Jacqueline Mccallum, RN [address] [place] [address] Julian@[facility] Primary Infusion Nurse 10/19/21 Jacqueline Drummond, AP PROCESSOR [address] [place] [address] Jorge@[facility] Egg Sorter Oncology 11/27/21 Bianca Cedeño, BOX LINER [address] [address] Tanya@[email or web address] Internal Medicine 10/08/23 Rosa Maria Swanson PA-C [address] [place] [address] Celina@[facility] Physician Identification Technician 11/04/23 Marta Fink [address] [place] [address] Audrey @[facility] Fitting Room Checker 12/12/23 Ree Rasmussen, RN [address] [place] [address] CHARLIE@[facility] Primary Infusion Nurse 11/02/24 Stephanie Zuniga, ROSELINE [address] [place] [address] MARYJANE@[facility] Associate Infusion Nurse 11/02/24 Niyah Kim RN [address] [place] [address] [email or web address] Associate Infusion Nurse 11/02/24 Johan Vilchis MD [address] [place] [address] Ophthalmology 04/02/25 documented as of this encounter Additional Source Comments The information contained in this document represents components of the legal health record. It is not the complete legal health record.[facility]
--- OUTSIDE RECORDS SUMMARY | 2025-06-01 18:39 | XMS_ITS | Encounter Summary ---
Author Organization [facility] Address [address] [place] [address] Phone Care Team Providers Care Lead Systems Developer Name Role Phone Agustin Sanchez MD Primary Care Provider Trent Banks MD Unavailable [phone] Sandra Riley MD Unavailable [phone] Jacqueline Mccallum RN Unavailable Mel [email or web address]. Jacqueline Aden PRINTING MACHINE OPERATOR Unavailable [phone] Bianca Cedeño PRECIPITATOR OPERATOR Unavailable [phone] Rosa Maria Ervin PA-C Unavailable [phone] Marta Fink Unavailable Gregory Odonnell@[facility] Pcp, Unknown Primary Care Provider UnavailRee Eugene RN Unavailable [phone] Stephanie Major RN Unavailable NATHANIEL MITCHELL@[email or web address].[place].[facility] Niyah Kim RN Unavailable [email or web address] [email or web address].[facility] Johan Vilchis MD Unavailable [phone] Encounter Details Date Type Department Care Team (Late st Contact Info) Description 12/30/2023 Documentation [facility], Division of Hematologic Oncology, [facility] [address] [place] [address], 7th [place] [address] Danita Salgado RN [address] [place] [address] Flavia@[email or web address] Social History Tobacco Use Types Packs/Day Years [...] PM EDT documented as of this encounter Progress Notes * Risa Partida PA-C - 12/30/2023 9:11 AM EDT Images from the original note were not included. AUTOLOGOUS FEMALE DONOR EVALUATION NOTE Will any of the FDA/AABB required infectious disease be outdated (greater than 30 days) at the timeof collection or not performed prior to collection?: No (Note: The Collect Facility must be notified in writing if the response to this question changes prior to donation collection.) Is the donor , , , Kale Black, South or Central Malagasy Black, or Other Black? OR is the donor from the Mediterranean [place], [place], or Southeast [place]?: No Does the donor have a personal or family history of any hemoglobinopathies? (Examples include sickle cell disease or Thalassemia): No If Yes or Unsure to either of the two questions above, an appropriate hemoglobinopathy test is required. Will a hemoglobinopathy test be ordered and resulted prior to leukapheresis?: N/A Is the donor greater than 54 years of age?: No Is the donor post menopausal with no menses for greater than one year?: Yes Is the donor surgically sterile?: Yes. Please explain: Had hysterectomy in 2016 (does have both ovaries). If a No response to all three questions above, a serum test is required to occur within7 days prior to collection. Will a serum test be done according to these guidelines, or has one been done already?: Yes Does the donor use recreational drugs?: No Does the donor use alcohol?: Yes. Describe alcohol use and number of drinks/week: 1-2 drinks per week. Does the donor use tobacco?: Yes. Indicate type (ciggarettes, chew, pipe) and frequency (amount/week): Approximately 10 cigarettes per day. Patient plans to stop smoking before auto SCT. Does the donor have a history of any cardiac issues?: No Does the donor have a history of diabetes?: No Does the donor have a history of migraine headaches?: No Medical Clearance Statement I, the evaluating clinician, have reviewed all donor data, including the medical history, physical exam, relevant medical records and laboratory test results, and have deemed this donor to be medically suitable for leukapheresis. Any abnormal findings not mentioned above that would contribute to added safety concerns pertainingto line placement, and/or collection will be or has been communicated to the appropriate collectionfacility and shall be noted here: None The information gathered about this patient's medical history was obtained by the ONN. I verified the information above through a chart review of [facility] records from the hematology/oncology team. Risa Partida MS, NATALIA Physician Crm Dynamics Developer Hematologic Malignancies and Stem Cell Transplant (t) [phone], pager#[phone] documented in this encounter Plan of Treatment Upcoming Encounters Date Type Department Care Team (Late st Contact Info) Description 05/26/2025 Procedure Pass [facility] Radiology Department [address] [place] [address] 06/23/2025 2:30 PM EDT Ancillary Procedure [facility] Radiology Department [address] [place] [address] Sandra Riley MD [address] [place] [address] Kelvin@[facility] 06/23/2025 3:30 PM EDT Blood Draw Laboratory Services, [address], 2nd [place] [address] Sandra Riley MD [address] [place] [address] Kelvin@[facility] 06/23/2025 4:00 PM EDT Office Visit Center for Neuro-Oncology, [address], 9th [place] [address] Sandra Riley MD [address] [place] [address] Kelvin@[facility] 08/11/2025 1:20 PM EST Telemedicine [facility] [address] [facility]2 [place] [address] Lynda Villafana MD [address] [place] [address]-[place] [address] ABDI@[facility] 09/15/2025 9:20 AM EST Office Visit [facility] [address] 12th [place] [address] Delores Rhoades MD [address] [place] [address] [email or web address] documented as of this encounter Visit Diagnoses Diagnosis Autologous donor of stem cells- Primary documented in this encounter Additional Health Concerns Infection Onset Date Last Indicated Resolved Time CDiff-Risk 01/21/2024 01/21/2024 01/21/2024 10:0 4 AM EDT CDiff-Risk 01/28/2024 01/28/2024 01/29/2024 10:5 6 AM EDT CoV-Risk Comment:Per note documentation 02/01/2024 02/01/2024 6:07 AM EDT CDiff-Risk 02/07/2024 02/07/2024 02/14/2024 1:22 AM EDT documented as of this encounter Care Teams Lead Systems Developer Relationship Specialty Start Date End Date Agustin Sanchez MD PCP - General Internal Medicine 06/26/21 09/01/24 Pcp, Unknown PCP - General 09/02/24 Trent Banks MD [email or web address] Radiation Oncology 10/02/21 Sandra Riley MD [address] [place] [address] Kelvin@[facility] Primary Oncologist Neurology 10/02/21 Jacqueline Mccallum, RN [address] [place] [address] Julian@[email or web address] Primary Infusion Nurse 10/19/21 Jacqueline Drummond, [facility] [address] [place] [address] Jorge@[facility] Claims Examiner Oncology 11/27/21 Bianca Cedeño NP [address] [address] Tanya@[facility] Internal Medicine 10/08/23 Rosa Maria Swanson PA-C [address] [place] [address] Celina@[facility] Physician Crm Dynamics Developer 11/04/23 Marta Fink [address] [place] [address] Audrey @[facility] Commercial Lines Underwriter 12/12/23 Ree Rasmussen, ROSELINE [address] [place] [address] CHARLIE@[facility] Primary Infusion Nurse 11/02/24 Stephanie Zuniga, RN [address] [place] [address] MARYJANE@[facility] Associate Infusion Nurse 11/02/24 Niyah Kim, RN [address] [place] [address] [email or web address]@[facility] Associate Infusion Nurse 11/02/24 Johan Vilchis MD [address] [place] [address] Ophthalmology 04/02/25 documented as of this encounter Additional Source Comments The information contained in this document represents components of the legal health record. It is not the complete legal health record.[facility]
--- OUTSIDE RECORDS SUMMARY | 2025-06-01 18:39 | XMS_ITS | Encounter Summary ---
Author Organization [facility] Address [address] [place] [address] Phone Care Team Providers Care Epitaxial Reactor Technician Name Role Phone Agustin Sanchez MD Primary Care Provider Trent Banks MD Unavailable [phone] Sandra Riley MD Unavailable [phone] Jacqueline Mccallum RN Unavailable Mel sears@[facility]. Jacqueline Aden FIRER BOILER Unavailable [phone] Bianca Cedeño MUCKER OPERATOR Unavailable [phone] Rosa Maria Ervin PA-C Unavailable [phone] Marta Fink Unavailable Gregory Odonnell@[facility] Pcp, Unknown Primary Care Provider UnavailRee Eugene RN Unavailable [phone] Stephanie Major RN Unavailable NATHANIEL MITCHELL@[facility].[place].[facility] Niyah Kim RN Unavailable niyah [email or web address].[place] Johan Vilchis MD Unavailable [phone] Encounter Details Date Type Department Care Team (Late st Contact Info) Description 10/10/2022 Procedure Pass [place] [facility] Imaging Department, [facility] [place], MRI [address] [place] [address] Social History Tobacco Use Types Packs/Day Years [...] st Contact Info) Description 05/26/2025 Procedure Pass [facility] Radiology Department [address] [place] [address] 06/23/2025 2:30 PM EDT Ancillary Procedure [facility] Radiology Department [address] [place] [address] Sandra Riley MD [address] [place] [address] Kelvin@[facility] 06/23/2025 3:30 PM EDT Blood Draw Laboratory Services, [facility] [address] [facility], 2nd [place] [address] Sandra Riley MD [address] [place] [address] Kelvin@[facility] 06/23/2025 4:00 PM EDT Office Visit Center for Neuro-Oncology, [facility] [address] [facility], 9th [place] [address] Sandra Riley MD [address] [place] [address] Kelvin@[facility] 08/11/2025 1:20 PM EST Telemedicine [facility] Medical Specialties [address] [facility]2 [place] [address] Lynda Villafana MD [address] [place], [place] [address] [place] [address] ABDI@[facility] 09/15/2025 9:20 AM EST Office Visit [facility] [address] 12th [place] [address] Delores Rhoades MD [address] [place] [address] hayley@[facility] documented as of this encounter Visit Diagnoses [...] documented as of this encounter Care Teams Epitaxial Reactor Technician Relationship Specialty Start Date End Date Agustin Sanchez MD PCP - General Internal Medicine 06/26/21 09/01/24 Pcp, Unknown PCP - General 09/02/24 Trent Banks MD [email or web address] Radiation Oncology 10/02/21 Sandra Riley MD [address] [place] [address] Kelvin@[facility] Primary Oncologist Neurology 10/02/21 Jacqueline Mccallum, RN [address] [place] [phone] Julian@[facility] Primary Infusion Nurse 10/19/21 Jacqueline Drummond, FIRER BOILER [address] [place] [address] Jorge@[facility] Guide Changer Oncology 11/27/21 Bianca Cedeño, MUCKER OPERATOR [address] [address] Tanya@[facility] Internal Medicine 10/08/23 Rosa Maria Swanson PA-C [address] [place] [address] Celina@[facility] Physician Dolphin Researcher 11/04/23 Marta Fink [address] [place] [address] Audrey @[facility] Lodge Officer 12/12/23 Ree Rasmussen RN [address] [place] [address] CHARLIE@[facility] Primary Infusion Nurse 11/02/24 Stephanie Zuniga, ROSELINE [address] [place] [address] MARYJANE@[facility] Associate Infusion Nurse 11/02/24 Niyah Kim RN [address] [place] [phone] [email or web address] Associate Infusion Nurse 11/02/24 Johan Vilchis MD [address] [place] [address] Ophthalmology 04/02/25 documented as of this encounter Additional Source Comments The information contained in this document represents components of the legal health record. It is not the complete legal health record.[facility]
--- OUTSIDE RECORDS SUMMARY | 2025-06-01 18:39 | XMS_ITS | Encounter Summary ---
Author Organization [facility] Address [address] [facility] [address] [place] [address] Phone Care Team Providers Care Sourcing Specialist Name Role Phone Agustin Sanchez MD Primary Care Provider Ternt Banks MD Unavailable [phone] Sandra Riley MD Unavailable [phone] Jacqueline Mccallum RN Unavailable Mel sears@[email or web address]. Jacqueline Aden TEST DRILLER Unavailable [phone] Bianca Cedeño BOBBIN MARKER Unavailable [phone] Rosa Maria Ervin PA-C Unavailable [phone] Marta Fink Unavailable Gregory Odonnell@[facility] Pcp, Unknown Primary Care Provider UnavailRee Eugene RN Unavailable [phone] Stephanie Major RN Unavailable NATHANIEL MITCHELL@[facility].[facility] Niyah Kim RN Unavailable niyah [email or web address] Johan Vilchis MD Unavailable [phone] Encounter Details Date Type Department Care Team (Late st Contact Info) Description 09/18/2023 Procedure Pass [facility] Women's Open Hearth Worker [place] [address] [place] [address] Social History Tobacco Use Types Packs/Day Years [...] 09/18/2023 5:32 PM Carly Quesada RN * [place] Suicide Severity Rating Scale (Screener/Recent Self-Report) Question [...] Info) Description 05/26/2025 Procedure Pass [facility] Rad[facility] Department [address] [place] [address] 06/23/2025 2:30 PM EDT Ancillary Procedure [facility] Radiology Department [address] [place] [address] Sandra Riley MD [address] [place], [place] [phone] Kelvin@[facility] 06/23/2025 3:30 PM EDT Blood Draw Laboratory Services, [facility] 450 [facility], 2nd [place] [address] Sandra Riley MD [address] [place] [address] Kelvin@[facility] 06/23/2025 4:00 PM EDT Office Visit [facility], [facility] [address] [facility], 9th [place] [address] Sandra Riley MD [address] [place] [address] Kelvin@[facility] 08/11/2025 1:20 PM EST Telemedicine [facility] Medical Specialties 45 [facility]2 [place] [address] Lynda Villafana MD [address] [place] [address], [facility] [place] [address] ABDI@[facility] 09/15/2025 9:20 AM EST Office Visit [facility] 243 [facility] 12th [place] [address] Delores Rhoades MD [address] [place] [address] [email or web address] documented as of this encounter Visit Diagnoses [...] documented as of this encounter Care Teams Sourcing Specialist Relationship Specialty Start Date End Date Agustin Sanchez MD PCP - General Internal Medicine 06/26/21 09/01/24 Pcp, Unknown PCP - General 09/02/24 Trent Banks MD [email or web address] Radiation Oncology 10/02/21 Sandra Riley MD [address] [place] [address] Kelvin@[facility] Primary Oncologist Neurology 10/02/21 Jacqueline Mccallum, RN [address] [place] [address] Julian@[facility] Primary Infusion Nurse 10/19/21 Jacqueline Drummond, [address] [address] Jorge@[facility] Licensed Audiologist Oncology 11/27/21 Bianca Cedeño BOBBIN MARKER [address] [address] Tanya@[facility] Internal Medicine 10/08/23 Rosa Maria Swanson PA-C [address] [place] [address] Celina@[facility] .[facility] Physician Marble Carver 11/04/23 Marta Fink [address] [place] [address] Audrey @[facility] Armored Car Guard 12/12/23 Ree Rasmussen, RO[place] [place] [address] CHARLIE@[facility] Primary Infusion Nurse 11/02/24 Stephanie Zuniga, ROSE[address] [place] [address] MARYJANE@[facility] Associate Infusion Nurse 11/02/24 Niyah Kim, ROSELINE [address] [place] [address] [email or web address] Associate Infusion Nurse 11/02/24 Johan Vilchis MD [address] [place] [address] Ophthalmology 04/02/25 documented as of this encounter Additional Source Comments The information contained in this document represents components of the legal health record. It is not the complete legal health record.[facility]
--- OUTSIDE RECORDS SUMMARY | 2025-06-01 18:39 | XMS_ITS | Encounter Summary ---
Author Organization [facility] Address [address] [facility] [address] [place] [address] Phone Care Team Providers Care Figure Model Name Role Phone Agustin Sanchez MD Primary Care Provider Trent Banks MD Unavailable [phone] Sandra Riley MD Unavailable [phone] Jacqueline Mccallum RN Unavailable Mel sears@[email or web address]. Jacqueline Aden BASE REMOVER Unavailable [phone] Bianca Cedeño SENIOR MEDICAL BILLING SPECIALIST Unavailable [phone] Rosa Maria Ervin PA-C Unavailable [phone] Marta Fink Unavailable Gregory Odonnell@[facility] Pcp, Unknown Primary Care Provider UnavailRee Eugene RN Unavailable [phone] Stephanie Major RN Unavailable NATHANIEL MITCHELL@[email or web address].[place].[facility] Niyah Kim RN Unavailable niyah [email or web address] Johan Vilchis MD Unavailable [phone] Encounter Details Date Type Department Care Team (Late st Contact Info) Description 09/13/2021 Procedure Pass [facility] 75 [facility] 2nd [place] [address] Social History Tobacco Use Types Packs/Day Years [...] st Contact Info) Description 05/26/2025 Procedure Pass [facility] Radiology Department [address] [place] [address] 06/23/2025 2:30 PM EDT Ancillary Procedure [facility] Radiology Department [address] [place] [address] Sandra Riley MD [address] [place] [address] Kelvin@[facility] 06/23/2025 3:30 PM EDT Blood Draw Laboratory Services, [address], 2nd [place] [address] Sandra Riley MD [address] [place] [address] Kelvin@[facility] 06/23/2025 4:00 PM EDT Office Visit Center for Neuro-Oncology, [address], 9th [place] [address] Sandra Riley MD [address] [place] [address] Kelvin@[facility] 08/11/2025 1:20 PM EST Telemedicine [facility] 45 [facility]2 [place] [address] Lynda Villafana MD [address] [place] [address], [place] [address] ABDI@[facility] 09/15/2025 9:20 AM EST Office Visit [facility] [address] 12th [place] [address] Delores Rhoades MD [address] [place] [address] hayley@[email or web address] documented as of this [...] documented as of this encounter Care Teams Figure Model Relationship Specialty Start Date End Date Agustin Sanchez MD PCP - General Internal Medicine 06/26/21 09/01/24 Pcp, Unknown PCP - General 09/02/24 Trent Banks MD [email or web address] Radiation Oncology 10/02/21 Sandra Riley MD [address] [place] [address] Kelvin@[facility] Primary Oncologist Neurology 10/02/21 Jacqueline Mccallum, RN [address] [place] [address] Julian@[facility] Primary Infusion Nurse 10/19/21 Jacqueline Drummond, [facility] [address] [place] [address] Jorge@[email or web address] Russian Teacher Oncology 11/27/21 Bianca Cedeño, SENIOR MEDICAL BILLING SPECIALIST [address] [address] Tanya@[facility] Internal Medicine 10/08/23 Rosa Maria Swanson PA-C [address] [place] [address] Celina@[facility] Physician Skoog Patching Machine Operator 11/04/23 Marta Fink [address] [place] [address] Audrey @[facility] Program Project Analyst 12/12/23 Ree Rasmussen RN [address] [place] [address] CHARLIE@[facility] Primary Infusion Nurse 11/02/24 Stephanie Zuniga, RO[place] [place] [address] MARYJANE@[facility] Associate Infusion Nurse 11/02/24 Niyah Kim, ROSE[address] [place] [address] [email or web address] Associate Infusion Nurse 11/02/24 Johan Vilchis MD [address] [place] [address] Ophthalmology 04/02/25 documented as of this encounter Additional Source Comments The information contained in this document represents components of the legal health record. It is not the complete legal health record.[facility]
--- OUTSIDE RECORDS SUMMARY | 2025-06-01 18:39 | XMS_ITS | Encounter Summary ---
Author Organization [facility] Address [address] [facility] [address] [place] [address] Phone Care Team Providers Care Tuber Operator Name Role Phone Agustin Sanchez MD Primary Care Provider Trent Bansk MD Unavailable [phone] Sandra Riley MD Unavailable [phone] Jacqueline Mccallum RN Unavailable Mel sears@[facility].[email or web address]. Jacqueline Aden DRY WALL APPLICATOR Unavailable [phone] Bianac Cedeño GUIDE DOG TRAINER Unavailable [phone] Rosa Maria Ervin PA-C Unavailable [phone] Marta Fink Unavailable Gregory Odonnell@[facility] Pcp, Unknown Primary Care Provider UnavailRee Eugene RN Unavailable [phone] Stephanie Major RN Unavailable NATHANIEL MITCHELL@[facility].[email or web address].[facility] Niyah Kim RN Unavailable niyah [email or web address] Johan Vilchis MD Unavailable [phone] Encounter Details Date Type Department Care Team (Late st Contact Info) Description 12/26/2022 Procedure Pass [facility] 75 [place] [address] Social History Tobacco Use Types Packs/Day Years [...] on file 12/20/2022 No 12/20/2022 No 12/20/2022 Comments No Sex and Gender Information Value Date Recorded Sex Assigned at Female 06/12/2021 3:58 PM EDT Legal Sex Female 9:58 AM EDT Gender Identity Female 06/12/2021 3:58 PM EDT Sexual Orientation Straight 06/12/2021 3: 58 PM EDT documented as of this encounter Plan of Treatment Upcoming Encounters Date Type Department Care Team (Late st Contact Info) Description 05/26/2025 Procedure Pass [facility] Radiology Department [address] [place] [address] 06/23/2025 2:30 PM EDT Ancillary Procedure [facility] Radiology Department [address] [place] [address] Sandra Riley MD [address] [place] [address] Kelvin@[facility] 06/23/2025 3:30 PM EDT Blood Draw Laboratory Services, [address], 2nd [place] [address] Sandra Riley MD [address] [place] [address] Kelvin@[facility] 06/23/2025 4:00 PM EDT Office Visit [facility] for Neuro[facility], [facility] [address] [facility] [address] [facility], 9th [place] [address] Sandra Riley MD [address] [place] [address] Kelvin@[facility] 08/11/2025 1:20 PM EST Telemedicine [facility] Medical Specialties 45 [facility] ASB2-2 [place] [address] Lynda Villafana MD 75 [facility], [place] [address] ABDI@[facility] 09/15/2025 9:20 AM EST Office Visit [facility] [address] [facility] 12th [place] [address] Delores Rhoades MD [address] [place] [address] [email or web address] documented as of this encounter Visit Diagnoses Not on filedocumented in this encounter Additional Health Concerns Infection Onset Date Last Indicated Resolved Time CoV-Risk Comment:Per note documentation 10/21/2023 10/21/2023 4 7:45 AM EST CDiff-Risk 01/21/2024 01/21/2024 01/21/2024 10:0 4 AM EDT CDiff-Risk 01/28/2024 01/28/2024 01/29/2024 10:5 6 AM EDT CoV-Risk Comment:Per note documentation 02/01/2024 02/01/2024 6:07 AM EDT CDiff-Risk 02/07/2024 02/07/2024 02/14/2024 1:22 AM EDT documented as of this encounter Care Teams Tuber Operator Relationship Specialty Start Date End Date Agustin Sanchez MD PCP - General Internal Medicine 06/26/21 09/01/24 Pcp, Unknown PCP - General 09/02/24 Trent Banks MD [email or web address] Radiation Oncology 10/02/21 Sandra Riley MD 75 [place] [address] Kelvin@[facility] Primary Oncologist Neurology 10/02/21 Jacqueline Mccallum, [address] [place] [address] Julian@[facility] Primary Infusion Nurse 10/19/21 Jacqueline Drummond, [address] [address] Jorge@[facility] Historical Site Guide Oncology 11/27/21 Bianca Cedeño, GUIDE DOG TRAINER [address] [place] [address] Tanya@[facility] Internal Medicine 10/08/23 Rosa Maria Swanson PA-C [address] [place] [address] Celina@[facility] Physician Bleach Liquor Maker 11/04/23 Marta Fink [address] [place] [address] Audrey @[facility] Meal Grinder Tender 12/12/23 Ree Rasmussen RN [address] [place] [address] CHARLIE@[facility] Primary Infusion Nurse 11/02/24 Stephanie Zuniga, ROSELINE [address] [place] [address] MARYJANE@[facility] Associate Infusion Nurse 11/02/24 Niyah Kim, ROSELINE [address] [place] [address] [email or web address] Associate Infusion Nurse 11/02/24 Johan Vilchis MD [address] [place] [address] Ophthalmology 04/02/25 documented as of this encounter Additional Source Comments The information contained in this document represents components of the legal health record. It is not the complete legal health record.[facility]
--- OUTSIDE RECORDS SUMMARY | 2025-06-01 18:39 | XMS_ITS | Encounter Summary ---
Author Organization [facility] Address [address] [place] [address] Phone Care Team Providers Care Director On Air Name Role Phone Agustin Sanchez MD Primary Care Provider Trent Banks MD Unavailable [phone] Sandra Riley MD Unavailable [phone] Jacqueline Mccallum RN Unavailable Mel sears@[facility].[place]. Jacqueline Aden ADOBE LAYER Unavailable [phone] Bianca Cedeño MATERIAL DISPOSITION INSPECTOR Unavailable [phone] Rosa Maria Ervin PA-C Unavailable [phone] Marta Fink Unavailable Gregory Odonnell@[facility] Pcp, Unknown Primary Care Provider UnavailRee Eugene RN Unavailable [phone] Stephanie Major RN Unavailable NATHANIEL MITCHELL@[facility].[facility] Niyah Kim RN Unavailable niyah [email or web address].[email or web address].[facility] Johan Vilchis MD Unavailable [phone] Encounter Details Date Type Department Care Team (Late st Contact Info) Description 12/03/2023 Procedure Pass [facility], [facility] Cancer [place], MRI [address] [address] Social History Tobacco Use Types Packs/Day Years [...] st Contact Info) Description 05/26/2025 Procedure Pass [facility] Rad[facility] Department [address] [place] [address] 06/23/2025 2:30 PM EDT Ancillary Procedure [facility] Radiology Department [address] [place] [address] Sandra Riley MD [address] [place] [address] Kelvin@[facility] 06/23/2025 3:30 PM EDT Blood Draw Laboratory Services, [facility] [address] [facility], 2nd [place] [address] Sandra Riley MD [address] [place] [address] Kelvin@[facility] 06/23/2025 4:00 PM EDT Office Visit Center for Neuro[facility]Oncology, [address], 9th [place] [address] Sandra Riley MD [address] [place] [address] Kelvni@[facility] 08/11/2025 1:20 PM EST Telemedicine [facility] Medical Specialties 45 [facility]2 [place] [address] Lynda Villafana MD [address] [place] [address], [place] [address] ABDI@[facility] 09/15/2025 9:20 AM EST Office Visit [facility] 243 [facility] 12th [place] [address] Delores Rhoades MD [address] [place] [address] hayley@[facility] documented as of this encounter [...] as of this encounter Care Teams Director On Air Relationship Specialty Start Date End Date Agustin Sanchez MD PCP - General Internal Medicine 06/26/21 09/01/24 Pcp, Unknown PCP - General 09/02/24 Trent Banks MD [email or web address] Radiation Oncology 10/02/21 Sandra Riley MD [address] [place] [address] Kelvin@[facility] Primary Oncologist Neurology 10/02/21 Jacqueline Mccallum, RN 75 [place], [place] Julian@[facility] Primary Infusion Nurse 10/19/21 Jacqueline Drummond, [address] [address] Jorge@[facility] Transmission Mechanic Oncology 11/27/21 Bianca Cedeño, MATERIAL DISPOSITION INSPECTOR [address] [address] Tanya@[facility] Internal Medicine 10/08/23 Rosa Maria Swanson PA-C [address] [place] [address] Celina@[facility] Physician Hydrology Technician 11/04/23 Marta Fink [address] [place] [address] Audrey @[facility] Professor Computer Science 12/12/23 Ree Rasmussen, RO[place] [place] [address] CHARLIE@[facility] Primary Infusion Nurse 11/02/24 Stephanie Zuniga, [address] [place] [address] MARYJANE@[facility] Associate Infusion Nurse 11/02/24 Niyah Kim, ROSELINE [address] [place] [address] [email or web address]@[facility] Associate Infusion Nurse 11/02/24 Johan Vilchis MD [address] [place] [address] Ophthalmology 04/02/25 documented as of this encounter Additional Source Comments The information contained in this document represents components of the legal health record. It is not the complete legal health record.[facility]
--- OUTSIDE RECORDS SUMMARY | 2025-06-01 18:39 | XMS_ITS | Encounter Summary ---
Author Organization [facility] Address [address] [place] [address] Phone Care Team Providers Care Reel Hooker Name Role Phone Agustin Sanchez MD Primary Care Provider Trent Banks MD Unavailable [phone] Sandra Riley MD Unavailable [phone] Jacqueline Mccallum RN Unavailable Mel sears@[email or web address]. Jacqueline Aden PIPE MAKER Unavailable [phone] Bianca Cedeño SWITCH OPERATORS SUPERVISOR Unavailable [phone] Rosa Maria Ervin PA-C Unavailable [phone] Marta Fink Unavailable Gregory Odonnell@[facility] Pcp, Unknown Primary Care Provider UnavailRee Eugene RN Unavailable [phone] Stephanie Major RN Unavailable NATHANIEL MITCHELL@[email or web address].[place].[facility] Niyah Kim RN Unavailable niyah [email or web address] Johan Vilchis MD Unavailable [phone] Encounter Details Date Type Department Care Team (Late st Contact Info) Description 06/30/2021 Procedure Pass [facility] MR Imaging, [place] [address] [place] [address] Social History Tobacco Use Types Packs/Day Years [...] st Contact Info) Description 05/26/2025 Procedure Pass [facility] Radiology Department [address] [place] [address] 06/23/2025 2:30 PM EDT Ancillary Procedure [facility] Radiology Department [address] [place] [address] Sandra Riley MD [address] [place] [address] Kelvin@[facility] 06/23/2025 3:30 PM EDT Blood Draw Laboratory Services, [address], 2nd [place] [address] Sandra Riley MD [address] [place] [address] Kelvin@[facility] 06/23/2025 4:00 PM EDT Office Visit Center for Neuro[facility], [facility] [address] [facility], 9th [place] [address] aSndra Riley MD [address] [place] [address] Kelvin@[facility] 08/11/2025 1:20 PM EST Telemedicine [facility] 45 [facility]2 [place] [address] Lynda Villafana MD [address] [place] [address], [place] [address] ABDI@[facility] 09/15/2025 9:20 AM EST Office Visit [facility] [address] 12th [place] [address] Delores Rhoades MD [address] [place] [address] [email or web address] documented as of this encounter Visit [...] documented as of this encounter Care Teams Reel Hooker Relationship Specialty Start Date End Date Agustin Sanchez MD PCP - General Internal Medicine 06/26/21 09/01/24 Pcp, Unknown PCP - General 09/02/24 Trent Banks MD [email or web address] Radiation Oncology 10/02/21 Sandra Riley MD [address] [place] [address] Kelvin@[facility] Primary Oncologist Neurology 10/02/21 Jacqueline Mccallum, [address] [place] [address] Julian@[facility] Primary Infusion Nurse 10/19/21 Jacqueline Drummond, [facility] 35 [place] [address] Jorge@[facility] Magazine Keeper Oncology 11/27/21 Bianca Cedeño NP [address] [address] Tanya@[facility] Internal Medicine 10/08/23 Rosa Maria Swanson PA-C [address] [place] [address] Celina@[facility] Physician Manager Consumer Insights 11/04/23 Marta Fink [address] [place] [address] Audrey @[facility] Db2 Developer 12/12/23 Ree Rasmussen RN [address] [place] [address] CHARLIE@[facility] Primary Infusion Nurse 11/02/24 Stephanie Zuniga, ROSE[address] [place] [address] MARYJANE@[facility] Associate Infusion Nurse 11/02/24 Niyah Kim, ROSELINE [address] [place] [address] [email or web address] Associate Infusion Nurse 11/02/24 Johan Vilchis MD [address] [place] [address] Ophthalmology 04/02/25 documented as of this encounter Additional Source Comments The information contained in this document represents components of the legal health record. It is not the complete legal health record.[facility]
--- OUTSIDE RECORDS SUMMARY | 2025-06-01 18:39 | XMS_ITS | Encounter Summary ---
Author Organization [facility] Address [address] [facility] [address] [place] [address] Phone Care Team Providers Care Operations Chief Name Role Phone Agustin Sanchez MD Primary Care Provider Trent Banks MD Unavailable [phone] Sandra Riley MD Unavailable [phone] Jacqueline Mccallum RN Unavailable Mel sears@[email or web address]. Jacqueline Aden SHEAR GRINDER OPERATOR Unavailable [phone] Bianca Cedeño MANAGER INTEGRATED Unavailable [phone] Rosa Maria Ervin PA-C Unavailable [phone] Marta Fink Unavailable Gregory Odonnell@[facility] Pcp, Unknown Primary Care Provider UnavailRee Eugene RN Unavailable [phone] Stephanie Major RN Unavailable NATHANIEL MITCHELL@[email or web address].[facility] Niyah Kim RN Unavailable [email or web address] [email or web address] Johan Vilchis MD Unavailable [phone] Encounter Details Date Type Department Care Team (Late st Contact Info) Description 01/21/2024 Procedure Pass [facility] [address] [place] [address] Social History Tobacco Use Types Packs/Day Years [...] st Contact Info) Description 05/26/2025 Procedure Pass [facility] Radiology Department [address] [place] [address] 06/23/2025 2:30 PM EDT Ancillary Procedure [facility] Radiology Department [address] [place] [address] Sandra Riley MD [address] [place] [address] Kelvin@[facility], [facility] 06/23/2025 3:30 PM EDT Blood Draw Laboratory Services, [facility] [address] [facility], 2nd [place] [address] Sandra Riley MD [address] [place] [address] Kelvin@[facility], [facility] 06/23/2025 4:00 PM EDT Office Visit [facility], [address], 9th [place] [address] Sandra Riley MD [address] [place] [address] Kelvin@[facility] 08/11/2025 1:20 PM EST Telemedicine [facility] [address] [facility]2 [place] [address] Lynda Villafana MD [address] [place] [address], [place] [address] ABDI@[facility] 09/15/2025 9:20 AM EST Office Visit [facility] [place] [address] 12th [place] [address] Delores Rhoades MD [address] [place] [address] [email or web address] documented as of this encounter [...] documented as of this encounter Care Teams Operations Chief Relationship Specialty Start Date End Date Agustin Sanchez MD PCP - General Internal Medicine 06/26/21 09/01/24 Pcp, Unknown PCP - General 09/02/24 Trent Banks MD [email or web address] Radiation Oncology 10/02/21 Sandra Riley MD [address] [place] [address] Kelvin@[facility] Primary Oncologist Neurology 10/02/21 Jacqueline Mccallum, RN [address] [place] [address] Julian@[email or web address] .[facility] Primary Infusion Nurse 10/19/21 Jacqueline Drummond, SHEAR GRINDER OPERATOR [address] [place] [address] [email or web address] Rack Loader Oncology 11/27/21 Bianca Cedeño MANAGER INTEGRATED [address] [place] [address] Tanya@[email or web address] Internal Medicine 10/08/23 Rosa Maria Swanson PA-C [address] [place] [address] Celina@[facility] Physician Extension Agent 11/04/23 Marta Fink [address] [place] [address] Audrey @[facility] Senior Analyst Programmer 12/12/23 Ree Rasmussen RN [address] [place] [address] CHARLIE@[facility] Primary Infusion Nurse 11/02/24 Stephanie Zuniga, RN [address] [place] [phone] MARYJANE@[facility] Associate Infusion Nurse 11/02/24 Niyah Kim, RN [address] [place] [address] [email or web address] Associate Infusion Nurse 11/02/24 Johan Vilchis MD [address] [place] [address] Ophthalmology 04/02/25 documented as of this encounter Additional Source Comments The information contained in this document represents components of the legal health record. It is not the complete legal health record.[facility]
--- OUTSIDE RECORDS SUMMARY | 2025-06-01 18:39 | XMS_ITS | Encounter Summary ---
Author Organization [facility] Address [address] [place] [address] Phone Care Team Providers Care Gristmiller Name Role Phone Agustin Sanchez MD Primary Care Provider Trent Banks MD Unavailable [phone] Sandra Riley MD Unavailable [phone] Jacqueline Mccallum RN Unavailable Mel sears@[email or web address].[place]. Jacqueline Aden MARINE CARGO SPECIALIST Unavailable [phone] Bianca Cedeño ANIMAL KEEPER HEAD Unavailable [phone] Rosa Maria Ervin PA-C Unavailable [phone] Marta Fink Unavailable Gregory Odonnell@[facility] Pcp, Unknown Primary Care Provider UnavailRee Eugene RN Unavailable [phone] Stephanie Major RN Unavailable NATHANIEL MITCHELL@[email or web address].[place].[facility] Niyah Kim RN Unavailable [email or web address] [email or web address] Johan Vilchis MD Unavailable [phone] Encounter Details Date Type Department Care Team (Late st Contact Info) Description 01/03/2024 Documentation [facility] [address] [address] Javier Winters PA-C [address] [place] [address] EVETTE@[email or web address] Social History Tobacco Use Types Packs/Day Years [...] as of this encounter Progress Notes * Javier Winters PA-C - 01/03/2024 12:32 PM EDT Apheresis Collection Suitability Name: Suzie Gómez MRN: ?[id number] Indication: ?auto HPC Tentative Collection Date: ?01/08/24 Date of mobilization: 01/04/24 Has the donor been tested for evidence of communicable infectious diseases in accordance with FDA/AABB guidelines: ?yes ?If female, is the donor surgically sterile? yes If yes, explain: hysterectomy in 2016 If female, is the donor older than 54? no If female, is the donor post menopausal? no HCG: negative on 12/31/23 ? Relevant Past Medical History: ?Cardiac (Atrial fibrillation or flutter, sick sinus syndrome, or ventricular arrhythmias, CAD/FL, CHF, HTN, heart valve disease, diastolic dysfunction, peripheral edema). Hx of prolonged QT intervalin s/o hypokalemia, workup was negative Endocrine (NIDDM/IDDM, thyroid disease, Adrenal disorders, ???). N/A Heme (Coagulopathy, Anemia, Hemoglobinopathies, ITP/TTP,???). ?DVT on xarelto Neuro (Cerebrovascular disease-TIA/CVA, Seizure disorders, Migraine headaches). N/A Psychiatric disorders (Mood disorders, Substance Abuse/Dependence???). Mood disorder on wellbutrin Pulmonary (Asthma, COPD, Pulmonary Embolism, Interstitial lung disease, Pleural/Mediastinal disorders, Tumor). N/A ?I, the Transfusion Medicine PA, have deemed the above donor to be medically suitable for autologous HPC collection. The information above was collected from a review of patient records. Javier Winters PA-C Transfusion Medicine PA [facility] Transfusion Medicine Pager: [phone] documented in this encounter Plan of Treatment Upcoming Encounters Date Type Department Care Team (Late st Contact Info) Description 05/26/2025 Procedure Pass [facility] Radiology Department [address] [place] [address] 06/23/2025 2:30 PM EDT Ancillary Procedure [facility] Radiology Department [address] [place] [address] Sandra Riley MD [address] [place] [address] Kelvin@[facility] 06/23/2025 3:30 PM EDT Blood Draw Laboratory Services, [facility] [address] [facility], 2nd [place] [address] Sandra Riley MD [address] [place] [address] Kelvin@[facility] 06/23/2025 4:00 PM EDT Office Visit [facility], [facility] [address] [facility], 9th [place] [address] Sandra Riley MD [address] [place] [address] Kelvin@[facility] 08/11/2025 1:20 PM EST Telemedicine [facility] 45 [facility]2 [place] [address] Lynda Villafana MD [address] [place] [address], [facility] [place] [address] ABDI@[facility] 09/15/2025 9:20 AM EST Office Visit [facility] [address] [facility] [address]th [place] [address] Delores Rhoades MD [address] [place] [address] [email or web address] documented as of this encounter [...] documented as of this encounter Care Teams Gristmiller Relationship Specialty Start Date End Date Agustin Sanchez MD PCP - General Internal Medicine 06/26/21 09/01/24 Pcp, Unknown PCP - General 09/02/24 Trent Banks MD [email or web address] Radiation Oncology 10/02/21 Sandra Riley MD [address] [place] [address] Kelvin@[facility] Primary Oncologist Neurology 10/02/21 Jacqueline Mccallum, RN [address] [place] [address] Julian@[facility] Primary Infusion Nurse 10/19/21 Jacqueline Drummond, [facility] 35 [place] [address] [email or web address] Respiratory Tech Oncology 11/27/21 Bianca Cedeño, ANIMAL KEEPER HEAD [address] [address] Tanya@[facility] Internal Medicine 10/08/23 Rosa Maria Swanson PA-C [address] [place] [address] [email or web address]@[email or web address] .[facility] Physician Nail Cutter 11/04/23 Marta Fink [address] [place] [address] Audrey @[facility] Drywall Hanger 12/12/23 Ree Rasmussen, [address] [place] [address] CHARLIE@[facility] Primary Infusion Nurse 11/02/24 Stephanie Zuniga, [address] [place] [address] MARYJANE@[facility] Associate Infusion Nurse 11/02/24 Niyah Kim RN [address] [place] [address] [email or web address] Associate Infusion Nurse 11/02/24 Joahn Vilchis MD [address] [place] [address] Ophthalmology 04/02/25 documented as of this encounter Additional Source Comments The information contained in this document represents components of the legal health record. It is not the complete legal health record.[facility]
--- OUTSIDE RECORDS SUMMARY | 2025-06-01 18:39 | XMS_ITS | Encounter Summary ---
Author Organization [facility] Address [address] [place] [address] [place] [address] Phone Care Team Providers Care Cad Intern Name Role Phone Agustin Sanchez MD Primary Care Provider Trent Banks MD Unavailable [phone] Sandra Riley MD Unavailable [phone] Jacqueline Mccallum RN Unavailable Mel [email or web address]@[email or web address].[place]. Jacqueline Aden ANGLE BENDER Unavailable [phone] Bianca Cedeño BINGO CALLER Unavailable [phone] Rosa Maria Ervin PA-C Unavailable [phone] Marta Fink Unavailable Gregory Odonnell@[facility] Pcp, Unknown Primary Care Provider UnavailRee Eugene RN Unavailable [phone] Stephanie Major RN Unavailable NATHANIEL MITCHELL@[facility].[place].[facility] Niyah Kim RN Unavailable [email or web address] [email or web address] Johan Vilchis MD Unavailable [phone] Encounter Details Date Type Department Care Team (Late st Contact Info) Description 07/30/2022 Procedure Pass [facility], [facility] [place], MRI [address] [facility], Floor [address]1 [place] [address] Social History Tobacco Use Types Packs/Day Years [...] st Contact Info) Description 05/26/2025 Procedure Pass [facility] Radiology Department [address] [place] [address] 06/23/2025 2:30 PM EDT Ancillary Procedure [facility] Radiology Department [address] [place] [address] Sandra Riley MD [address] [place] [phone] Kelvin@[facility] 06/23/2025 3:30 PM EDT Blood Draw Laboratory Services, [address], 2nd [place] [address] Sandra Riley MD [address] [place] [address] Kelvin@[facility] 06/23/2025 4:00 PM EDT Office Visit [facility] for Neuro[facility], [facility] [address] [facility], 9th [place] [address] Sandra Riley MD [address] [place] [address] Kelvin@[facility] 08/11/2025 1:20 PM EST Telemedicine [facility] [address] [facility]2 [place] [address] Lynda Villafana MD [address] [place] [address]-[place] [address] ABDI@[facility] 09/15/2025 9:20 AM EST Office [facility] [address] 12th [place] [address] Delores Rhoades MD [address] [place] [address] [email or web address] documented as of this encounter Visit Diagnoses [...] documented as of this encounter Care Teams Cad Intern Relationship Specialty Start Date End Date Agustin Sanchez MD PCP - General Internal Medicine 06/26/21 09/01/24 Pcp, Unknown PCP - General 09/02/24 Trent Banks MD [email or web address] Radiation Oncology 10/02/21 Sandra Riley MD [address] [place] [address] Kelvin@[facility] Primary Oncologist Neurology 10/02/21 Jacqueline Mccallum, RN [address] [place] [address] Julian@[facility] Primary Infusion Nurse 10/19/21 Jacqueline Drummond, [facility] 35 [place] [address] Jorge@[email or web address] Ski Maker Wood Oncology 11/27/21 Bianca Cedeño, BINGO CALLER [address] [address] Tanya@[facility] Internal Medicine 10/08/23 Rosa Maria Swanson PA-C [address] [place] [address] Celina@[facility] Physician Video Recorder Mechanic 11/04/23 Marta Fink [address] [place] [address] Audrey @[facility] Packing Room Inspector 12/12/23 Ree Rasmussen RN [address] [place] [address] CHARLIE@[facility] Primary Infusion Nurse 11/02/24 Stephanie Zuniga, [address] [place] [address] MARYJANE@[facility] Associate Infusion Nurse 11/02/24 Niyah Kim RN [address] [place] [address] [email or web address] Associate Infusion Nurse 11/02/24 Johan Vilchis MD [address] [place] [address] Ophthalmology 04/02/25 documented as of this encounter Additional Source Comments The information contained in this document represents components of the legal health record. It is not the complete legal health record.[facility]
--- OUTSIDE RECORDS SUMMARY | 2025-06-01 18:40 | XMS_ITS | Encounter Summary ---
Author Organization [facility] Address [address] [place] [address] Phone Care Team Providers Care Greek Professor Name Role Phone Agustin Sanchez MD Primary Care Provider Trent Banks MD Unavailable Sandra Riley MD Unavailable [phone] Jacqueline Mccallum RN Unavailable Mel sears@[email or web address]. Jacqueline Aden HISTOTECHNOLOGIST SUPERVISOR Unavailable [phone] Bianca Cedeño ELECTRIC METER TESTER HELPER Unavailable [phone] Rosa Maria Ervin PA-C Unavailable [phone] Marta Fink Unavailable Gregory Odonnell@[facility] Pcp, Unknown Primary Care Provider UnavailRee Eugene RN Unavailable [phone] Stephanie Major RN Unavailable NATHANIEL MITCHELL@[email or web address].[email or web address] Niyah Kim RN Unavailable niyah [email or web address] Johan Vilchis MD Unavailable [phone] Encounter Details Date Type Department Care Team (Late st Contact Info) Description 04/03/2022 Procedure Pass [facility], MRI [address] [address] Social History Tobacco Use Types Packs/Day [...] - Inhaled Oxygen Concentration - - Weight 77.1 kg (170 lb) 04/03/2022 10:33 AM EDT Height - - Body Mass Index 31.69 02/07/2022 12:40 PM EDT documented in this encounter Plan of Treatment Upcoming Encounters Date Type Department Care Team (Late st Contact Info) Description 05/26/2025 Procedure Pass [facility] Radiology Department [address] [place] [address] 06/23/2025 2:30 PM EDT Ancillary Procedure [facility] Radiology Department [address] [place] [address] Sandra Riley MD [address] [place] [address] Kelvin@[facility] 06/23/2025 3:30 PM EDT Blood Draw Laboratory Services, [address], 2nd [place] [address] Sandra Riley MD [address] [place] [address] Kelvin@[facility] 06/23/2025 4:00 PM EDT Office Visit Center for Neuro[facility]Oncology, [facility] [address] [facility], 9th [place] [address] Sandra Riley MD [address] [place] [address] Kelvin@[facility] 08/11/2025 1:20 PM EST Telemedicine [facility] Medical Specialties [address] [place] [address] Lynda Villafana MD [address] [facility], [place] [address] ABDI@[facility] 09/15/2025 9:20 AM EST Office Visit [facility] 243 [facility] 12th [place] [address] Delores Rhoades MD [address] [place] [address] [email or web address] documented as of this [...] documented as of this encounter Care Teams Greek Professor Relationship Specialty Start Date End Date Agustin Sanchez MD PCP - General Internal Medicine 06/26/21 09/01/24 Pcp, Unknown PCP - General 09/02/24 Trent Banks MD [email or web address] Radiation Oncology 10/02/21 Sandra Riley MD 75 [place] [address] Kelvin@[facility] Primary Oncologist Neurology 10/02/21 Jacqueline Mccallum, [address] [place] [address] Julian@[facility] Primary Infusion Nurse 10/19/21 Jacqueline Drummond, [facility] 35 [place] [address] Jorge@[facility] Roasterman Oncology 11/27/21 Bianca Cedeño NP [address] [address] Tanya@[facility] Internal Medicine 10/08/23 Rosa Maria Swanson PA-C [address] [place] [address] Celina@[facility] Physician Executive Vice President Business Development 11/04/23 Marta Fink [address] [place] [address] Audrey @[facility] Bumboater 12/12/23 Ree Rasmussen RN [address] [place] [address] CHARLIE@[facility] Primary Infusion Nurse 11/02/24 Stephanie Zuniga, [address] [place] [address] MARYJANE@[facility] Associate Infusion Nurse 11/02/24 Niyah Kim, [address] [place] [address] [email or web address] Associate Infusion Nurse 11/02/24 Johan Vilchis MD [address] [place] [address] Ophthalmology 04/02/25 documented as of this encounter Additional Source Comments The information contained in this document represents components of the legal health record. It is not the complete legal health record.[facility]
--- OUTSIDE RECORDS SUMMARY | 2025-06-01 18:40 | XMS_ITS | Encounter Summary ---
Author Organization [facility] Address [address] [place] [id number] Phone Care Team Providers Care Artisan Plasterer Name Role Phone Agustin Sanchez MD Primary Care Provider Trent Banks MD Unavailable [phone] Sandra Riley MD Unavailable [phone] Jacqueline Mccallum RN Unavailable [email or web address] Jacqueline Aden TRANSCRIPTION COORDINATOR Unavailable [phone] Bianca Cedeño ORGANIZATIONAL DEVELOPMENT CONSULTANT Unavailable [phone] Rosa Maria Ervin PA-C Unavailable [phone] Marta Fink Unavailable [email or web address] Pcp, Unknown Primary Care Provider UnavailRee Eugene RN Unavailable [phone] Stephanie Major RN Unavailable [email or web address] Niyah Kim RN Unavailable [email or web address] Johan Vilchis MD Unavailable [phone] Encounter Details Date Type Department Care Team (Late st Contact Info) Description 11/05/2023 Documentation Central Registration, [facility] [place] [address] [facility], 2nd [place] [address] Pietro Tovar [address] [place] [address] [email or web address] Social History Tobacco Use Types Packs/Day Years [...] Info) Description 05/26/2025 Procedure Pass [facility] Rad[facility] [address] [place] [address] 06/23/2025 2:30 PM EDT Ancillary Procedure [facility] Radiology Department [address] [place] [address] Sandra Riley MD [address] [place] [id number] [email or web address] 06/23/2025 3:30 PM EDT Blood Draw Laboratory Services, [facility] [address] [facility] 2nd [place] [address] Sandra Riley MD [address] [place] [phone] [email or web address] 06/23/2025 4:00 PM EDT Office Visit [facility] for Neuro[facility]Oncology, [facility] [address] [facility], 9th [place] [address] Sandra Riley MD [address] [place] [id number] [email or web address] 08/11/2025 1:20 PM EST Telemedicine [facility] [address] [facility] ASB[address] [place] [address] Lynda Villafana MD [address] [place] [address], [place] [address] [email or web address] 09/15/2025 9:20 AM EST Office Visit [facility] [address] [facility] 12th [place] [address] Delores Rhoades MD [address] [place] [phone] [email or web address] documented as of this encounter [...] documented as of this encounter Care Teams Artisan Plasterer Relationship Specialty Start Date End Date Agustin Sanchez MD PCP - General Internal Medicine 06/26/21 09/01/24 Pcp, Unknown PCP - General 09/02/24 Trent Banks MD [email or web address] Radiation Oncology 10/02/21 Sandra Riley MD [address] [place] [id number] [email or web address] Primary Oncologist Neurology 10/02/21 Jacqueline Mccallum, [address] [place], [place] [email or web address] Primary Infusion Nurse 10/19/21 Jacqueline Drummond, [facility] [address] [place] [address] [email or web address] Quality Assurance Manager Oncology 11/27/21 Bianca Cedeño, ORGANIZATIONAL DEVELOPMENT CONSULTANT [address] [address] [email or web address] Internal Medicine 10/08/23 Rosa Maria Swanson PA-C [address] [place] [phone] [email or web address] Physician Equine Vet 11/04/23 Marta Fink [address] [place] [phone] Audrey @[email or web address] Button Machine Operator 12/12/23 Ree Rasmussen, RO[place] [address] [place] [phone] [email or web address] Primary Infusion Nurse 11/02/24 Stephanie Zuniga, RN [address] [place] [phone] [email or web address] Associate Infusion Nurse 11/02/24 Niyah Kim, RO[place] [address] [place] [phone] [email or web address] Infusion Nurse 11/02/24 Johan Vilchis MD [address] [place] [address] Ophthalmology 04/02/25 documented as of this encounter Additional Source Comments The information contained in this document represents components of the legal health record. It is not the complete legal health record.[facility]
== END 2025-06-01 15:33 | disposition home or self-care (01) ==
LOC: HO.HHCX 15:32
PROVIDERS: Visit Provider Nurse Practitioner
DX: R06.89 Other abnormalities of breathing (principal)
CPT/HCPCS: 71046

== ENCOUNTER → 2025-06-01 15:34 | Outpatient (BNV) | payer MEDICAID, SELFPAY | PROVIDERS: Visit Provider Radiology Diagnostic Radiology | DX: R06.00 Dyspnea, unspecified (principal) | CPT/HCPCS: 71046 ==